=== PATIENT | female | born 1980 | race Caucasian/White ===

== ENCOUNTER 2017-08-12 15:10 | Inpatient (IN) | payer MEDICAID, OTHER ==
[2017-08-12] MEDS ORDERED: Sodium Chloride 0.9% 10 ML Syringe FLUSH PRN ×2 (16:41)
[2017-08-12] MEDS ORDERED: Ondansetron 4 MG/2 ML SDV IVPUSH ONE (16:42)
[2017-08-12] MEDS ORDERED: HYDROmorphone 0.5 MG/0.5 ML Syringe IVPUSH ONE (16:42)
[2017-08-12] MEDS ORDERED: Lactated Ringers 1,000 ML IV ONE (16:42)
--- NOTE | 2017-08-12 16:47 | EDM.PDOC ---
ED HPI GENERAL MEDICAL PROBLEM - General Chief Complaint: Abdominal Pain Stated Complaint: ABD PAIN Time Seen by Provider: 08/12/17 16:32 Source of Information: Reports: Patient, Family, RN Notes Reviewed History Limitations: Reports: No Limitations - History of Present Illness INITIAL COMMENTS - FREE TEXT/NARRATIVE: 36-year-old female presents to the emergency department today complaint of abdominal pain, she has a known history of gastric bypass several years ago has done well with the procedure however over the last couple months she has had increasing abdominal pain with eating over the last week or half it has gotten progressively worse pain is predominantly in the epigastric region Abdomen Pain Score (Numeric/FACES): 7 - Related Data Allergies Allergy/AdvReac Type Severity Reaction Status Date / Time Penicillins Allergy Hives Verified 08/12/17 15:57 acetaminophen AdvReac Cannot Verified 08/12/17 15:57 [From Darvocet-N] Remember propoxyphene AdvReac Cannot Verified 08/12/17 15:57 [From Darvocet-N] Remember Home Meds: Home Meds *Antideppresant 1 tab PO DAILY 08/12/17 [History] ALPRAZolam [Xanax] 1 tab PO BEDTIME 08/12/17 [History] Past Medical History HEENT History: Reports: Impaired Vision, Other (See Below) Other HEENT History: "10% hearing left ear" ORAL PATHOLOGIST History: Reports: Musculoskeletal History: Reports: Other (See Below) Other Musculoskeletal History: right knee "two cysts and meniscus tear". Neurological History: Reports: Other (See Below) Other Neuro History: patient reports "seizure" recently and did not go to the hospital or get follow up. Psychiatric History: Reports: Anxiety, Depression - Past Surgical History HEENT Surgical History: Reports: Myringotomy w Tube(s), Other (See Below) Other HEENT Surgeries/Procedures: skin grafting with ear drum repair GI Surgical History: Reports: Bariatric Procedure, Cholecystectomy, EGD, Hernia Repair/Other Female Surgical History: Reports: Hysterectomy, Tubal Ligation, Other (See Below) Other Female Surgeries/Procedures: "partial hysterectomy" Social & Family History - Tobacco Use Smoking Status *Q: Never Smoker - Recreational Drug Use Recreational Drug Use: No ED ROS GENERAL - Review of Systems Review Of Systems: See Below Constitutional: Denies: Fever, Chills HEENT: Reports: No Symptoms Respiratory: Reports: No Symptoms Cardiovascular: Reports: No Symptoms GI/Abdominal: Reports: Abdominal Pain, Nausea. Denies: Vomiting Musculoskeletal: Reports: No Symptoms Skin: Reports: No Symptoms Neurological: Reports: No Symptoms ED EXAM, GI/ABD - Physical Exam Exam: See Below Text/Narrative:: General: Female, not in any distress, alert and oriented x3 HEENT: head is atraumatic normocephalic, eyes pupils equal round reactive to light, sclera clear no conjunctivitis appreciated. Ears tympanic membranes clear and jeter landmarks and light reflex are present bilaterally canals are clear. Nose no septal deviation, nares are clear, no blood present. Mouth mucosa is moist and pink no erythema or exudate noted in soft palate, tongue is midline uvula is midline, dentition is intact. Neck: Supple no thyromegaly no tracheal deviation. Nodes: Cervical nodes subclavicular nodes nontender no palpable lymphadenopathy noted. Lungs: clear to auscultation bilaterally with symmetrical respirations, no adventitious noise appreciated. CV: Regular rate and rhythm S1 and S2 appreciated no murmurs rubs or gallops noted. Abdomen: Soft, nontender, no palpable masses or organomegaly appreciated, no distention no guarding bowel sounds are present, . Neuro: Cranial nerves II through XII grossly intact Skin: Warm and dry, intact Extremities: No lower extremity edema appreciated, . Course - Vital Signs Last Recorded V/S: Last Vital Signs Temp 98.1 F 08/12/17 15:52 Pulse 83 08/12/17 17:11 Resp 18 08/12/17 17:11 BP 131/86 08/12/17 17:11 Pulse Ox 97 08/12/17 17:11 - Orders/Labs/Meds Orders: Active Orders 24 hr Category Date Time Status Peripheral IV Care [RC] . DIRECTED Care 08/12/17 16:41 Active Sodium Chloride 0.9% [Saline Flush] Med 08/12/17 16:41 Active 10 ml FLUSH ASDIRECTED PRN Sodium Chloride 0.9% [Saline Flush] Med 08/12/17 16:41 Active 10 ml FLUSH ASDIRECTED PRN Peripheral IV Insertion Adult [OM.PC] Urgent Oth 08/12/17 16:41 Ordered Medication Orders Sodium Chloride (Saline Flush) 10 ml FLUSH ASDIRECTED PRN PRN Reason: Keep Vein Open Last Admin: 08/12/17 17:06 Dose: 10 ml Sodium Chloride (Saline Flush) 10 ml FLUSH ASDIRECTED PRN PRN Reason: Keep Vein Open Last Admin: 08/12/17 17:06 Dose: 10 ml Labs: Laboratory Tests 08/12/17 08/12/17 08/12/17 Range/Units 16:55 16:55 17:11 WBC 7.2 (4.5-11.0) K/uL RBC 4.12 (3.30-5.50) M/uL Hgb 12.6 (12.0-15.0) g/dL Hct 38.1 (36.0-48.0) % MCV 93 (80-98) fL MCH 31 (27-31) pg MCHC 33 (32-36) % Plt Count 354 (150-400) K/uL Neut % (Auto) 51 (36-66) % Lymph % (Auto) 41 (24-44) % [place] % (Auto) 6 (2-6) % Eos % (Auto) 1 L (2-4) % Baso % (Auto) 1 (0-1) % Sodium 145 (140-148) mmol/L Potassium 3.8 (3.6-5.2) mmol/L Chloride 108 (100-108) mmol/L Carbon Dioxide 24 (21-32) mmol/L Anion Gap 12.9 (5.0-14.0) mmol/L BUN 7 (7-18) mg/dL Creatinine 0.6 (0.6-1.0) mg/dL Est Cr Clr Drug Dosing 103.50 mL/min Estimated GFR (MDRD) > 60 (>60) Glucose 86 (74-106) mg/dL Calcium 8.4 L (8.5-10.1) mg/dL Total Bilirubin 0.2 (0.2-1.0) mg/dL AST 35 (15-37) U/L ALT 71 (12-78) U/L Alkaline Phosphatase 78 (46-116) U/L Total Protein 6.2 L (6.4-8.2) g/dL Albumin 3.6 (3.4-5.0) g/dL Globulin 2.6 (2.3-3.5) g/dL Albumin/Globulin Ratio 1.4 (1.2-2.2) Urine Color Yellow Urine Appearance Clear Urine pH 6.5 (4.5-8.0) Ur Specific [place] 1.010 (1.008-1.030) Urine Protein Negative (NEGATIVE) mg/dL Urine Glucose (UA) Normal (NEGATIVE) mg/dL Urine Ketones Negative (NEGATIVE) mg/dL Urine Occult Blood Negative (NEGATIVE) Urine Nitrite Negative (NEGATIVE) Urine Bilirubin Negative (NEGATIVE) Urine Urobilinogen Normal (NORMAL) mg/dL Ur Leukocyte Esterase Negative (NEGATIVE) Urine RBC 0-5 (0-5) Urine WBC 0-5 (0-5) Ur Epithelial Cells Rare Amorphous Sediment Not seen Urine Bacteria Rare Urine Mucus Not seen Meds: Medications Generic Name Dose Route Start Last Admin Trade Name Freq PRN Reason Stop Dose Admin Sodium Chloride 10 ml 08/12/17 16:41 08/12/17 17:06 Saline Flush FLUSH 10 ml ASDIRECTED PRN Administration Keep Vein Open Sodium Chloride 10 ml 08/12/17 16:41 08/12/17 17:06 Saline Flush FLUSH 10 ml ASDIRECTED PRN Administration Keep Vein Open Discontinued Medications Generic Name Dose Route Start Last Admin Trade Name Freq PRN Reason Stop Dose Admin Hydromorphone HCl 0.5 mg 08/12/17 16:42 08/12/17 17:09 Dilaudid IVPUSH 08/12/17 16:43 0.5 mg ONETIME ONE Administration Lactated Ringer's 1,000 mls @ 999 mls/hr 08/12/17 16:42 08/12/17 17:05 Ringers, Lactated IV 08/12/17 17:42 999 mls/hr BOLUS ONE Administration Ondansetron HCl 4 mg 08/12/17 16:42 08/12/17 17:08 Zofran IVPUSH 08/12/17 16:43 4 mg ONETIME ONE Administration Departure - Departure Time of Disposition: 17:50 Disposition: Admitted As Inpatient 67 Condition: Good Clinical Impression: Abdominal pain Qualifiers: Abdominal location: epigastric Qualified Code(s): R10.13 - Epigastric pain - Discharge Information Referrals: PCP,None [Primary Care Provider] - Forms: ED Department Discharge - My Orders Last 24 Hours: My Active Orders 08/12/17 16:41 Peripheral IV Care [RC] . DIRECTED Sodium Chloride 0.9% [Saline Flush] 10 ml FLUSH ASDIRECTED PRN Sodium Chloride 0.9% [Saline Flush] 10 ml FLUSH ASDIRECTED PRN Peripheral IV Insertion Adult [OM.PC] Urgent - Assessment/Plan Last 24 Hours: My Active Orders 08/12/17 16:41 Peripheral IV Care [RC] . DIRECTED Sodium Chloride 0.9% [Saline Flush] 10 ml FLUSH ASDIRECTED PRN Sodium Chloride 0.9% [Saline Flush] 10 ml FLUSH ASDIRECTED PRN Peripheral IV Insertion Adult [OM.PC] Urgent Plan: Assessment Acuity = acute on chronic Site and laterality = epigastric abdominal pain complicated patient with known history of Gilson-en-Y gastric bypass Etiology = unclear etiology Manifestations = pain, nausea Location of injury = Home Lab values = CBC, CMP unremarkable urinalysis unremarkable Plan Called and discussed the case with Dr. Sánchez general surgery recommended admission and possible EGD in the morning plan for hydration pain control and antiemetics This note was dictated using [employer] voice recognition software please call with any questions on syntax or sol.
[2017-08-12] MEDS ORDERED: Ondansetron 4 MG/2 ML SDV IV PRN (17:53)
[2017-08-12] MEDS ORDERED: HYDROmorphone 0.5 MG/0.5 ML Syringe IVPUSH PRN (17:56)
[2017-08-12] MEDS: Meperidine 300 MG/30 ML PCA Vial IV PRN (20:42)
[2017-08-12] MEDS: ALPRAZolam 0.5 MG Tab PO SCH (20:46)
[2017-08-12] MEDS: Lactated Ringers 1,000 ML IV SCH (22:00)
[2017-08-13] MEDS: Lactated Ringers 1,000 ML IV SCH ×2 (03:56→11:47)
[2017-08-13] MEDS: Meperidine 300 MG/30 ML PCA Vial IV PRN ×2 (04:25→12:54)
[2017-08-13] MEDS ORDERED: Acetaminophen/Caffeine 500-65 MG Tab PO ONE (06:43)
[2017-08-13] MEDS ORDERED: Naloxone 0.4 MG/ML SDV IV PRN (07:08)
--- NOTE | 2017-08-13 09:00 | HP ---
SUBJECTIVE: Amy was admitted to the emergency room yesterday for abdominal pain. She states she has had mid epigastric abdominal pain for about 10 days. It has progressively gotten worse. There is no radiation of pain. No associated signs and symptoms. She has a history of Gilson-en-Y gastric bypass surgery and was last seen in the Bariatric Surgery Department about in 2012. CURRENT MEDICATIONS: Xanax 1 tablet p.o. at bedtime 1 mg and antidepressant unknown. ALLERGIES: [facility] 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 Right knee, 2 cysts and meniscus tear, history of seizure but did not go to the hospital. Anxiety and depression. PAST SURGICAL HISTORY: Gilson-en-Y gastric bypass surgery, partial hysterectomy, tubal ligation, cholecystectomy, hernia, skin grafting of the right ear drum and myringotomy with tubes. SOCIAL HISTORY: . History of smoking cigarettes. 4 children; ages 14, 16, 17 and 20. Currently unemployed. Caffeine use, 4 bottles of diet Coke a day. Alcohol, last use 2 weeks ago. Protein unknown. Water intake unknown. Exercise none. REVIEW OF SYSTEMS: GENERAL: States weight has been stable. HEENT: Negative. NECK: Negative. HEART: No chest pain, shortness of breath, fast or irregular heart beat. RESPIRATORY: No cough. GI: Abdominal pain. No nausea or vomiting. States bowels work regularly. Pain is in the midepigastric area without radiation. She has been taking a lot of ibuprofen for knee pain. MUSCULOSKELETAL: Right knee pain. She has cyst and meniscal tear. SKIN: Negative for rash or changes in moles. NEUROLOGICAL: No headaches, dizziness, loss of coordination, but states she had a seizure at home. PSYCHIATRIC: Positive for depression and anxiety. Currently on medications. FAMILY HISTORY: Noncontributory. PHYSICAL EXAMINATION: GENERAL: Amy Meza is a 36-year-old female. VITAL SIGNS: Height is 5 feet 2 inches. Weight is 196, TPR 97.2, 72, 16, blood pressure 112/74. HEENT: Negative. NECK: Supple. HEART: Regular rate and rhythm. LUNGS: Clear. ABDOMEN: Soft. There is tenderness in the midepigastric area. EXTREMITIES: Without peripheral edema. NEUROLOGIC: Cranial nerves II-XII intact. PSYCHIATRIC: Mood and affect appropriate. SKIN: Without rash. ASSESSMENT: 1. Mid epigastric abdominal pain. 2. Excess of ibuprofen consumption following status post Gilson-en-Y gastric bypass surgery. 3. Unspecified surgical malabsorption. 4. Vitamin B deficiency. 5. Noncompliance with taking vitamins. 6. BMI 35. 7. History of nicotine use. 8. Right knee pain, torn meniscus per history. 9. Anxiety and depression. PLAN: 1. Schedule, have consent signed for EGD with possible dilatation and possible biopsies. Joseph Sánchez MD, case to follow today n.p.o. 2. Robinul 0.4 mg IV reservation agent to OR. 3. Check vitamin B12, ferritin, thiamin, vitamin D and folate. Blood already drawn today. 4. Excedrin Free 2 tabs were given per nursing staff at 0645 hours this morning for a caffeine headache. 5. Dietary consult. Bariatric consult. Lifestyle conflicts. We will evaluate p.r.n. and orders will be written post EGD. 6. Admit for observation, will be admitted to inpatient if pending results of EGD. Tomasa Cadena PA-C /[id number]
[2017-08-13] MEDS ORDERED: Midazolam 1 MG/ML 2 ML SDV ONE (11:07)
[2017-08-13] MEDS ORDERED: Propofol 200 MG/20 ML SDV ONE (11:07)
[2017-08-13] MEDS ORDERED: fentaNYL 100 MCG/2 ML SDV ONE (11:07)
[2017-08-13] MEDS ORDERED: Glycopyrrolate 0.2 MG/ML 2 ML SDV IVPUSH ONE (12:30)
[2017-08-13] MEDS ORDERED: Iohexol 300 MG/ML 30 ML Bottle PO ONE (13:01)
[2017-08-13] MEDS ORDERED: Sodium Chloride 0.9% 80 ML IV ONE (13:14)
[2017-08-13] MEDS ORDERED: Sodium Chloride 0.9% 10 ML Syringe FLUSH PRN (13:14)
[2017-08-13] MEDS ORDERED: Iopamidol 612 MG/ML 150 ML Bottle IV SCH (13:15)
[2017-08-13] MEDS ORDERED: Venlafaxine 75 MG Cap.ER PO SCH (14:00)
[2017-08-13] MEDS ORDERED: MANG IV SCH ×3 (16:00)
[2017-08-13] MEDS ORDERED: [UNRECOGNIZED DRUG - OTHER] IV SCH ×3 (16:00)
[2017-08-13] MEDS ORDERED: COPPER IV SCH ×3 (16:00)
[2017-08-13] MEDS ORDERED: CHROMIUM IV SCH ×3 (16:00)
[2017-08-13] MEDS ORDERED: VITAMIN K IV SCH ×3 (16:00)
[2017-08-13] MEDS ORDERED: MVI IV SCH ×3 (16:00)
[2017-08-13] MEDS ORDERED: ZINC IV SCH ×3 (16:00)
[2017-08-13] MEDS ORDERED: Cyanocobalamin (Vitamin B12) 1,000 MCG/ML SDV IM ONE (16:00)
[2017-08-13] MEDS: ALPRAZolam 0.5 MG Tab PO SCH (21:03)
[2017-08-14] MEDS: Lactated Ringers 1,000 ML IV SCH (00:14)
[2017-08-14] MEDS ORDERED: Meperidine 300 MG/30 ML PCA Vial IV ONE (04:49)
[2017-08-14] MEDS ORDERED: Acetaminophen/HYDROcodone 325-5 MG Tab PO PRN (08:52)
[2017-08-14] MEDS ORDERED: Ondansetron 4 MG Tab.DIS PO PRN (08:52)
--- NOTE | 2017-08-14 10:56 | DISCH ---
ADMISSION DIAGNOSES: 1. Abdominal pain, status post Gilson-en-Y gastric bypass surgery. 2. Unspecified surgical malabsorption. 3. B12 deficiency. 4. Noncompliance with taking vitamins. 5. BMI 35. 6. History of nicotine use. 7. Right knee pain, torn meniscus per history. DISCHARGE DIAGNOSES: 1. EGD, 08/13/2017. 2. Partial or mild small bowel obstruction per CT scan, 08/13/2017. 3. 2.3 cm cyst, left ovary. HOSPITAL COURSE: Amy presented to the emergency room on 08/12/2017 for abdominal pain. She was having midepigastric abdominal pain for about 10 days. It has progressively gotten worse. No radiation of pain. She has been taking quite a bit in the form of ibuprofen for knee pain. She had an EGD, which was negative. A CT scan was done and revealed a partial small bowel obstruction. REVIEW OF SYSTEMS: HEENT: Negative. NECK: Negative. HEART: Negative for chest pain. LUNGS: No shortness of breath. ABDOMEN: Improved somewhat, tolerating a step-3 gastric bypass diet and has eaten 100% of her meals. Oral intake was 1940. Remains to have minimal tenderness in the midepigastric and right below the midepigastric area and a little bit to the left. : Deferred. EXTREMITIES: Without peripheral edema. DISPOSITION: Discharged to home. CONDITION: Stable. DISCHARGE MEDICATIONS: New prescription; 1. [place] 5/325 mg 1 to 2 every 4 hours p.r.n. pain, #20. 2. Zofran 4 mg q.4 hours p.r.n. nausea, #30. 3. She is to resume her home medications of Effexor 75 mg daily and Xanax 1 mg p.o. at bedtime. 4. She was given instructions on her post-bariatric vitamins and supplements, but will not start these until after surgery. DIET: Usual diet as tolerated. Drink 8 to 10 glasses of water a day. ACTIVITY: As tolerated. Driving, do not drive while on pain medication. Shower/bathing, may shower. DISCHARGE INSTRUCTIONS: Notify provider if any fever, increased pain, nausea, or vomiting. Special instruction; follow up on Wednesday for surgery. The Surgery Department will call on Wednesday afternoon for time of surgery. Have nothing to eat after midnight before surgery.
--- NOTE | 2017-08-16 14:23 | OR ---
DATE OF PROCEDURE: 08/13/2017 PREOPERATIVE DIAGNOSIS: Upper mid abdominal pain, status post Gilson-en-Y gastric bypass. POSTOPERATIVE DIAGNOSIS: Normal endoscopic examination status post Gilson-en-Y gastric bypass. PROCEDURE: Upper GI endoscopy with biopsies of gastric pouch for CLOtest. ANESTHESIA: IV sedation. INDICATIONS FOR PROCEDURE: A 36-year-old status post Gilson-en-Y gastric bypass presenting with some upper and mid abdominal pain and diarrhea postprandial. To initiate workup, she is undergoing an upper endoscopy with biopsies as indicated. Potential risks including bleeding and perforation were discussed, and the patient wishes to proceed. DETAILS OF PROCEDURE: The patient was taken to the operating room and placed in a left lateral decubitus position. IV sedation was administered, after which the upper GI endoscope was passed orally through the length of the esophagus into the gastric pouch and from there through the gastrojejunostomy, roughly 20 cm into the Gilson limb. Findings included a normal esophagus and EG junction area. The gastric pouch likewise was unremarkable with no significant inflammation present. The gastrojejunostomy was widely patent, again without any inflammation or signs of ulceration and the visualized portion of the Gilson limb was unremarkable. At this point, biopsies were obtained from the gastric pouch to assess the H. pylori status. Minimal bleeding from the biopsy site was seen and the procedure then concluded. Given the lack of significant findings on the upper endoscopy, we will plan a CT scan of the abdomen to look for signs of partial small bowel obstruction later today. Joseph Sánchez MD /[id number]
== END 2017-08-14 09:44 | disposition home or self-care (01) | DRG 389 ==
LOC: JP.ED 15:10 → JP.2SS 17:53 → OBSVTOIN 08-13 12:20
PROVIDERS: ADMIT Surgery; ATTEND Surgery
PROC: 0DB68ZX Excision of Stomach, Via Natural or Artificial Opening Endoscopic, Diagnostic (ICD-10-PCS; principal; 2017-08-13)
DX: K56.600 Partial intestinal obstruction, unspecified as to cause (principal); K91.2 Postsurgical malabsorption, not elsewhere classified; E53.8 Deficiency of other specified B group vitamins; Z98.84 Bariatric surgery status; Z98.0 Intestinal bypass and anastomosis status; M25.561 Pain in right knee; N83.202 Unspecified ovarian cyst, left side; F32.9 Major depressive disorder, single episode, unspecified; F41.9 Anxiety disorder, unspecified; H54.7 Unspecified visual loss; Z87.891 Personal history of nicotine dependence; Z88.6 Allergy status to analgesic agent; Z88.0 Allergy status to penicillin; Z91.19 Patient's noncompliance with other medical treatment and regimen
CPT/HCPCS: 36415; 74177; 80053; 81001; 82306; 82607; 82728; 82746; 84425; 85025; 87081; 94762; 96361; 96374; 96375; 96376; 99284; 99285-25; A9270-GY; G0378; J1170; J2175; J2250; J2405; J2704; J3010; J3420; J3490; J7030; J7050; J7120; Q9965

== ENCOUNTER 2017-08-17 09:03 | Inpatient (IN) | payer MEDICAID ==
[~2017-08-17 09:03] MED LIST: Bupivacaine 0.5%/EPINEPHrine 1:200,000 50 ML MDV ONE; Dexamethasone 4 MG/ML SDV ONE; Glycopyrrolate 0.2 MG/ML 5 ML MDV ONE; Neostigmine Methylsulfate 1 MG/ML 5 ML Syringe ONE; Ondansetron 4 MG/2 ML SDV ONE; Propofol 200 MG/20 ML SDV ONE; Rocuronium 50 MG/5 ML Vial ONE; Succinylcholine 200 MG/10 ML MDV ONE
[2017-08-17] MEDS ORDERED: Meropenem 500 MG SDV ONE (09:59)
[2017-08-17] MEDS ORDERED: Gabapentin 300 MG Cap PO ONE (10:30)
[2017-08-17] MEDS ORDERED: Dextrose 5%-Lactated Ringers 1,000 ML IV SCH ×2 (10:30→14:30)
[2017-08-17] MEDS ORDERED: Celecoxib 200 MG Cap PO ONE (10:30)
[2017-08-17] MEDS ORDERED: Acetaminophen 500 MG Tab PO ONE (10:30)
[2017-08-17] MEDS ORDERED: Scopolamine 1.5 MG Transdermal Patch TOP SCH (10:30)
[2017-08-17] MEDS: cefOXitin 2 GM in Premix Bag 1 BAG IV ONE ×2 (11:30→14:19)
[2017-08-17] MEDS ORDERED: Lidocaine 2% 100 MG/5 ML Syringe IVPUSH ONE (11:45)
[2017-08-17] MEDS ORDERED: Ropivacaine 43 ML, Dexamethasone 8 MG, EPINEPHrine 0.4 MG, Sodium Chloride 0.9% 34.6 ML NERVRT SCH ×4 (11:45)
[2017-08-17] MEDS ORDERED: Ketamine 500 MG/5 ML MDV IV SCH (11:45)
[2017-08-17] MEDS ORDERED: Midazolam 1 MG/ML 2 ML SDV ONE (12:25)
[2017-08-17] MEDS ORDERED: fentaNYL 100 MCG/2 ML SDV ONE (13:19)
[2017-08-17] MEDS ORDERED: HYDROmorphone 1 MG/ML Syringe IVPUSH PRN (13:35)
[2017-08-17] MEDS: Lidocaine 0.4%/D5W 2 GM/500 ML BAG IV SCH (14:20)
[2017-08-17] MEDS ORDERED: Naloxone 0.4 MG/ML SDV IV PRN (14:25)
[2017-08-17] MEDS ORDERED: HYDROmorphone/Normal Saline 15 MG/30 ML PCA IV PRN (15:00)
[2017-08-17] MEDS ORDERED: Acetaminophen Soln 650 MG/20.3 ML UD Cup PO SCH (15:00)
[2017-08-17] MEDS ORDERED: Ondansetron 4 MG/2 ML SDV IVPUSH PRN (15:00)
[2017-08-17] MEDS ORDERED: Metoclopramide 10 MG/2 ML SDV IVPUSH PRN (15:00)
[2017-08-17] MEDS ORDERED: diphenhydrAMINE 50 MG/ML SDV IVPUSH PRN (15:00)
[2017-08-17] MEDS ORDERED: hydrOXYzine HCl 100 MG/2 ML SDV IM PRN (15:00)
[2017-08-17] MEDS ORDERED: Labetalol 20 MG/4 ML Syringe IVPUSH PRN (15:00)
[2017-08-17] MEDS: SCOPOLAMINE PATCH CHECK TOP SCH (15:18)
[2017-08-17] MEDS: Acetaminophen Soln 650 MG/20.3 ML UD Cup PO SCH ×2 (15:40→22:04)
[2017-08-17] MEDS ORDERED: Pantoprazole 40 MG Vial IVPUSH SCH (16:00)
[2017-08-17] MEDS ORDERED: MVI, Adult with Vitamin K 10 ML, Thiamine 200 MG, Chromium/Copper/Mang/Selen/Zn 1 ML in... IV SCH ×4 (16:00)
[2017-08-17] MEDS: Venlafaxine 75 MG Cap.ER PO SCH (17:30)
[2017-08-17] MEDS: cefOXitin 2 GM in Sodium Chloride 0.9% 50 ML IV SCH ×2 (17:31→23:55)
[2017-08-17] MEDS: Heparin Sodium 5,000 Units/ML Vial SUBCUT SCH (17:32)
[2017-08-17] MEDS: Gabapentin 250 MG/5 ML Solution ML 470 ML Bottle PO SCH (20:34)
[2017-08-17] MEDS ORDERED: ALPRAZolam 0.5 MG Tab PO SCH (21:00)
[2017-08-17] MEDS ORDERED: Iohexol 647 MG/ML 50 ML SDV PO SCH (23:30)
[2017-08-18] MEDS: Acetaminophen Soln 650 MG/20.3 ML UD Cup PO SCH (04:08)
[2017-08-18] MEDS: Heparin Sodium 5,000 Units/ML Vial SUBCUT SCH (05:12)
[2017-08-18] MEDS: Lidocaine 0.4%/D5W 2 GM/500 ML BAG IV SCH (05:15)
[2017-08-18] MEDS: cefOXitin 2 GM in Sodium Chloride 0.9% 50 ML IV SCH (05:22)
[2017-08-18] MEDS ORDERED: Celecoxib 200 MG Cap PO SCH (08:00)
[2017-08-18] MEDS ORDERED: Acetaminophen/oxyCODONE 325-5 MG Tab PO PRN ×2 (08:10→08:24)
[2017-08-18] MEDS: Venlafaxine 75 MG Cap.ER PO SCH (08:36)
[2017-08-18] MEDS: Gabapentin 250 MG/5 ML Solution ML 470 ML Bottle PO SCH (08:36)
[2017-08-18] MEDS: SCOPOLAMINE PATCH CHECK TOP SCH (08:36)
--- NOTE | 2017-08-18 08:52 | CR ---
UGI wo KUB HISTORY: Prior gastric bypass Gilson-en-Y. COMPARISON: CT scan 08/13/2017 FINDINGS: Contrast is seen within the small gastric remnant. No extravasation. Contrast is also seen in the Gilson limb without extravasation or obstruction.
--- NOTE | 2017-08-19 08:14 | DISCH ---
ADMISSION DIAGNOSES: Partial small bowel obstruction, status post Gilson-en-Y gastric bypass surgery; unspecified surgical malabsorption; B12 deficiency; and depression. DISCHARGE DIAGNOSES: Diagnostic laparoscopy with revision of the jejunostomy junction, resection of the biliary pancreatic stump and placement of Interceed mesh, for partial small bowel obstruction at the jejunostomy junction, redundant biliary limb causing distortion at the jejunostomy junction. Date of surgery, 08/17/2017. HISTORY: Amy Meza is a 36-year-old female with postprandial abdominal pain. After preoperative evaluation and discussion of possible risks and possible complications, she wished to proceed with surgical procedure. HOSPITAL COURSE: Amy had her surgery on 08/17/2017. She had no operative complications. On postop day #1, her activity was good. Pain was well managed. She tolerated her diet well, and she was ready to be discharged to home. PHYSICAL EXAMINATION: GENERAL: Amy Meza is a 36-year-old female. VITAL SIGNS: Height is 5 feet 2 inches, weight is 190 pounds. TPR is 99.5, 82, 16. Blood pressure 125/66. HEENT: Negative. NECK: Supple. HEART: Regular rate and rhythm. LUNGS: Clear. ABDOMEN: Sutures in place. Abdominal binder is on. EXTREMITIES: Without peripheral edema. DISPOSITION: Discharged to home. CONDITION: Stable and improving. FOLLOWUP APPOINTMENT: With Tomasa Cadena PA-C, on 08/27/2017 at 10:30 a.m. HOME MEDICATIONS: Percocet 5/325 mg 1 to 2 every 4 hours p.r.n. pain, #40 and Celebrex 200 mg p.o. daily, #14. She is to resume her home medications; Xanax 1 mg at bedtime, calcium 600 mg with vitamin D 1 tablet twice daily, vitamin D3 5000 international units daily, vitamin B12 1000 mcg sublingual daily, ferrous fumarate 1 oral twice daily, multivitamin 1 chewable daily, triamcinolone cream 0.1% cream 18 g twice daily, venlafaxine 75 mg oral daily, and vitamin B complex 1 daily. DIET AFTER DISCHARGE: Step-2 gastric bypass diet. Drink 8 to 10 glasses a day. ACTIVITY: No lifting greater than 10 pounds for 2 weeks[address] Driving, do not drive on pain medication. May shower. DISCHARGE INSTRUCTIONS: Notify provider if fever, increased pain, nausea or vomiting. Keep site clean and dry. Wear abdominal binder for 2 weeks and as tolerated. Special instruction, use incentive spirometer 10 times every hour while awake.
[2017-08-19] MEDS ORDERED: Cyanocobalamin (Vitamin B12) 1,000 MCG/ML SDV IM ONE (09:00)
--- NOTE | 2017-08-23 08:28 | OR ---
DATE OF PROCEDURE: 08/17/2017 PREOPERATIVE DIAGNOSIS: Partial small bowel obstruction. POSTOPERATIVE DIAGNOSES: 1. Partial small bowel obstruction secondary to acute angulation of the Gilson limb entering the jejunojejunostomy. 2. 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 OPERATIVE PROCEDURE: Diagnostic laparoscopy with lysis of adhesions and: 1. Revision of jejunojejunostomy component of Gilson-en-Y gastric bypass (31385). 2. Separate resection of the biliopancreatic limb stump (90963). 3. Placement of Interceed mesh to limit recurrent adhesion formation (65746). ANESTHESIA: General. ASSISTANTS: 1. Tomasa Cadena PA-C. 2. KAREN Trujillo3. INDICATIONS FOR PROCEDURE: This is a 36-year-old admitted last week with postprandial crampy abdominal pain. The upper GI endoscopic examination was unremarkable. The patient underwent a CT scan of the abdomen, which showed a partial obstruction at the level of the jejunojejunostomy. Plan is to proceed with a diagnostic laparoscopy with resection and revision of the jejunojejunostomy, as well as other procedures as indicated, based on operative findings. The patient is still somewhat obese, and as discussed with the patient, if we need to revise the jejunojejunostomy, it could be done such that the length of the limbs would be such that she would likely lose some weight, knowing that there is some risk of frequent loose bowel movements with this procedure, as well as possible nutritional deficiencies, all requiring the medical management and/or occasionally revision once again. Potential risks otherwise, including bleeding, infection, injury to underlying viscera, leaks from GI tract closures as well as possibility of cardiopulmonary, septic, or hemorrhagic complications leading to were discussed, and the patient wishes to proceed. DETAILS OF PROCEDURE: The patient was taken to the operating room and placed in a supine position. After general endotracheal anesthesia was induced, she was converted to a lithotomy position and the abdomen was prepped and draped. In the left lower quadrant, a transverse incision was made and the peritoneal cavity entered under direct vision with an Optiview trocar with the peritoneal cavity inflated to 15 mmHg pressure with CO2. Laparoscope was then reinserted. No underlying trocar insertion site injuries were seen. Following this, eventually 4 additional trocars were placed in the upper and mid abdomen. As one traced down the jejunojejunostomy, the point of obstruction at the end of the Gilson limb as it entered the jejunojejunostomy was identified. After lysis of adhesions, this still appeared to be somewhat narrowed and angulated. The jejunojejunostomy was also being distorted by the biliopancreatic limb stump being fairly redundant and its mesentericthen pulling the anastomosis leftward and posteriorly. Initially, the redundant biliopancreatic limb stump was then resected with a TAISHA kruse load, the adjacent mesentery divided with Harmonic scalpel, and that specimen delivered from the field. At this point, the Gilson limb was divided more or less flush with the jejunojejunostomy and a small amount of this was resected, after freeing up of the mesentery resulted in a few centimeters that were ischemic. Both divisions of the small bowel were accomplished with TAISHA kruse loads. The Gilson limb at that point was measured at 135 cm. At this point, the ileocecal valve was identified and traced back 220 cm, giving the patient a common limb of 220 cm with the Gilson limb of 135 cm. Recently, we have been using a combined alimentary limb length of 300 cm on these revisions, but the patient has had some difficulty in maintaining followup, and given this, somewhat longer limb lengths were used to minimize chances of problems with diarrhea and nutritional deficiencies. At that point, the divided end of the Gilson limb was brought up to the small bowel at the point 220 cm proximal to the ileocecal valve, and after some initial lining sutures were placed with 0 Ethibond stitch, small bowel anastomosis was accomplished in a [id number] manner with internal firing of the Endo-TAISHA kruse load. The common opening was then closed transversely with the purple load, angles anastomosed, and the mesenteric defect was then reinforced with 0 Ethibond sutures, along with a fibrin sealant. At that point, the abdomen was irrigated with meropenem-containing saline solution. So as to minimize chances of adhesions between the small bowel and the pelvic and abdominal wall, Interceed mesh was placed over the area of dissection, and following this, the trocars were sequentially removed. The fascia at the 12 mm sites were closed with 0 Vicryl stitch and the skin with a 4-0 Vicryl skin stitch. Dressing was applied. The patient was taken to the recovery room in satisfactory condition. Physician hospital aides and assistants teacher, Tomasa Cadena, played an essential role in assisting in this case, helping to position the patient, retract structures as needed, as well as suturing and cutting sutures when indicated. Her presence improved patient's safety and decreased operative time. Joseph Sánchez MD /[id number]
== END 2017-08-18 09:25 | disposition home or self-care (01) | DRG 389 ==
LOC: JP.SDS 09:03 → JP.SDSSCHI 09:03 → JP.2SS 13:00 → EDSTATUS 14:10
PROVIDERS: ADMIT Surgery; ATTEND Surgery
PROC: 0DBA4ZX Excision of Jejunum, Percutaneous Endoscopic Approach, Diagnostic (ICD-10-PCS; principal; 2017-08-17)
PROC: 0DB94ZX Excision of Duodenum, Percutaneous Endoscopic Approach, Diagnostic (ICD-10-PCS; 2017-08-17)
PROC: 3E0M05Z Introduction of Adhesion Barrier into Peritoneal Cavity, Open Approach (ICD-10-PCS; 2017-08-17)
DX: K56.600 Partial intestinal obstruction, unspecified as to cause (principal); K91.2 Postsurgical malabsorption, not elsewhere classified; E53.8 Deficiency of other specified B group vitamins; F32.9 Major depressive disorder, single episode, unspecified; F41.9 Anxiety disorder, unspecified; H54.7 Unspecified visual loss; Z87.891 Personal history of nicotine dependence; Z88.5 Allergy status to narcotic agent; Z88.0 Allergy status to penicillin; Z88.8 Allergy status to other drugs, medicaments and biological substances; T45.2X6A Underdosing of vitamins, initial encounter; Y92.9 Unspecified place or not applicable; Z98.84 Bariatric surgery status; Z98.0 Intestinal bypass and anastomosis status
CPT/HCPCS: 51701; 74240; 74240-26; 82962; 88307; 94762; A9270-GY; C9113; J0171; J0330; J0694; J1100; J1170; J1644; J2001; J2185; J2250; J2405; J2704; J2710; J2795; J3010; J3410; J3411; J7030; J7042; J7050; Q9967

== ENCOUNTER 2017-12-17 21:24 | Emergency (ER) | payer SELFPAY ==
[2017-12-17] MEDS ORDERED: Metoclopramide 10 MG/2 ML SDV IVPUSH ONE (22:23)
[2017-12-17] MEDS ORDERED: Lactated Ringers 1,000 ML IV ONE (22:23)
[2017-12-17] MEDS ORDERED: fentaNYL 100 MCG/2 ML SDV IVPUSH ONE (22:24)
--- NOTE | 2017-12-17 22:30 | EDM.PDOC ---
ED HPI GENERAL MEDICAL PROBLEM - General Chief Complaint: Abdominal Pain Stated Complaint: ABD PAIN Time Seen by Provider: 12/17/17 22:15 Source of Information: Reports: Patient, Old Records History Limitations: Reports: No Limitations - History of Present Illness INITIAL COMMENTS - FREE TEXT/NARRATIVE: 37 yo female patient of Dr. Sánchez comes here tonight from [place], [place] for several weeks of diarrhea and intermittent vomiting and upper abdominal pain. 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 No fever. No bleeding. Missed her outpatient appt earlier with Dr. Sánchez. 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 ) Associated Symptoms: Reports: Nausea/Vomiting. 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) (none) abdominal pain Pain Score (Numeric/FACES): 8 - Related Data Allergies Allergy/AdvReac Type Severity Reaction Status Date / Time Penicillins Allergy Hives Verified 12/17/17 22:03 propoxyphene AdvReac Cannot Verified 12/17/17 22:03 [From Luis] Remember Home Meds: Home Meds ALPRAZolam [Xanax] 1 mg PO BEDTIME 08/12/17 [History] Venlafaxine HCl [Venlafaxine ER] 75 mg PO DAILY 08/13/17 [History] Calcium Carbonate/Vitamin D3 [Calcium 600 + Vit D 200] 1 each PO BID 08/16/17 [ History] Cholecalciferol (Vitamin D3) [Vitamin D3] 5,000 unit PO DAILY 08/16/17 [History] Cyanocobalamin (Vitamin B-12) [Vitamin B-12] 1,000 mcg SL DAILY 08/16/17 [ History] Ferrous Fumarate/Ascorbic Acid [Marilin-Sequels 65-25 mg Caplet] 1 each PO BID 03/26 [History] Ped Multivit #38/Iron Fumarate [Hm Animal Shapes Complete Chew] 18 mg PO BID 03/26 [History] Vitamin B Complex [B Complex] 1 each PO DAILY 08/16/17 [History] Celecoxib [CeleBREX] 200 mg PO DAILY@0800 #14 cap 08/18/17 [Rx] Past Medical History HEENT History: Reports: Impaired Vision, Other (See Below) Other HEENT History: "10% hearing left ear" Gastrointestinal History: Reports: Bowel Obstruction, Cholelithiasis Genitourinary History: Reports: None 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 Neurological History: Reports: Other (See Below) Other Neuro History: patient reports "seizure" recently and did not go to the hospital or get follow up. Psychiatric History: Reports: Anxiety, Depression Endocrine/Metabolic History: Reports: Obesity/BMI 30+ Hematologic History: Reports: B12 Deficiency, Blood Transfusion(s) - Infectious Disease History Infectious Disease History: Reports: Chicken Pox - Past Surgical History HEENT Surgical History: Reports: Myringotomy w Tube(s), Other (See Below) Other HEENT Surgeries/Procedures: skin grafting with ear drum repair GI Surgical History: Reports: Bariatric Procedure, Cholecystectomy, Colon, EGD, Hernia Repair/Other, Small Bowel Female Surgical History: Reports: Hysterectomy, Tubal Ligation, Other (See Below) Other Female Surgeries/Procedures: "partial hysterectomy" Musculoskeletal Surgical History: Reports: None Social & Family History - Family History Family Medical History: Noncontributory - Tobacco Use Smoking Status *Q: Current Some Day Smoker Years of Tobacco use: 20 Packs/Tins Daily: 0.2 Second Hand Smoke Exposure: Yes - Caffeine Use Caffeine Use: Reports: Soda - Recreational Drug Use Recreational Drug Use: No ED ROS GENERAL - Review of Systems Review Of Systems: See Below Constitutional: Reports: No Symptoms HEENT: Reports: No Symptoms Respiratory: Reports: No Symptoms Cardiovascular: Reports: No Symptoms Endocrine: Reports: No Symptoms GI/Abdominal: Reports: Abdominal Pain, Diarrhea, Nausea, Vomiting. Denies: Black Stool, Bloody Stool, Constipation, Distension, Flatus, Hematemesis, Hematochezia, Melena : Reports: No Symptoms Musculoskeletal: Reports: No Symptoms Skin: Reports: No Symptoms Neurological: Reports: No Symptoms Psychiatric: Reports: No Symptoms ED EXAM, GI/ABD - Physical Exam Exam: See Below Exam Limited By: No Limitations General Appearance: Alert, WD/WN, No Apparent Distress Eyes: Bilateral: Normal Appearance Ears: Normal External Exam, Normal Canal, Hearing Grossly Normal Nose: Normal Inspection, Normal Mucosa, No Blood Throat/Mouth: Normal Inspection, Normal Lips, Normal Oropharynx, Normal Voice, No Airway Compromise Head: Atraumatic, Normocephalic Neck: Normal Inspection, Supple, Non-Tender Respiratory/Chest: No Respiratory Distress, Lungs Clear, Normal Breath Sounds, No Accessory Muscle Use Cardiovascular: Regular Rate, Rhythm, No Edema GI/Abdominal Exam: Normal Bowel Sounds, Soft, No Distention, Tender (upper half of her abdomen.), Abnormal Bowel Sounds (increased). No: Non-Tender Back Exam: Normal Inspection. No: CVA Tenderness (R), CVA Tenderness (L) Extremities: Normal Inspection, Normal Range of Motion, Non-Tender, No Pedal Edema Neurological: Alert, Oriented, CN II-XII Intact, Normal Cognition, No Motor/ Sensory Deficits Psychiatric: Normal Affect, Normal Mood Skin Exam: Warm, Dry, Intact, Normal Color, No Rash Course - Vital Signs Text/Narrative:: Discussed with Dr. Sánchez at 0100h Last Recorded V/S: Last Vital Signs Temp 37.6 C 12/17/17 22:12 Pulse 81 12/17/17 22:12 Resp 16 12/17/17 22:12 BP 124/88 12/17/17 22:12 Pulse Ox 97 12/17/17 22:12 - Orders/Labs/Meds Orders: Active Orders 24 hr Category Date Time Status Abdomen Pelvis w Cont [CT] Stat Exams 12/17/17 22:24 Taken UA W/MICROSCOPIC [URIN] Stat Lab 12/17/17 22:23 Ordered Iopamidol [Isovue-300 (61%)] Med 12/17/17 22:45 Active 100 ml IV . DIRECTED Sodium Chloride 0.9% [Normal Saline] 80 ml Med 12/17/17 22:45 Active IV ASDIRECTED Sodium Chloride 0.9% [Saline Flush] Med 12/17/17 22:40 Active 10 ml FLUSH ASDIRECTED PRN Medication Orders Sodium Chloride (Normal Saline) 80 mls @ 3 mls/sec IV ASDIRECTED TOMAS Last Admin: 12/17/17 23:01 Dose: 3 mls/sec Iopamidol (Isovue-300 (61%)) 100 ml IV . DIRECTED TOMAS Last Admin: 12/17/17 23:01 Dose: 100 ml Sodium Chloride (Saline Flush) 10 ml FLUSH ASDIRECTED PRN PRN Reason: Keep Vein Open Last Admin: 12/17/17 23:00 Dose: 10 ml Labs: Laboratory Tests 12/17/17 12/17/17 Range/Units 22:33 22:33 WBC 8.5 (4.5-11.0) K/uL RBC 3.65 (3.30-5.50) M/uL Hgb 11.5 L (12.0-15.0) g/dL Hct 35.4 L (36.0-48.0) % MCV 97 (80-98) fL MCH 32 H (27-31) pg MCHC 33 (32-36) % Plt Count 321 (150-400) K/uL Sodium 138 L (140-148) mmol/L Potassium 3.5 L (3.6-5.2) mmol/L Chloride 105 (100-108) mmol/L Carbon Dioxide 25 (21-32) mmol/L Anion Gap 11.5 (5.0-14.0) mmol/L BUN 10 D (7-18) mg/dL Creatinine 0.7 (0.6-1.0) mg/dL Est Cr Clr Drug Dosing 87.87 mL/min Estimated GFR (MDRD) > 60 (>60) Glucose 82 (74-106) mg/dL Calcium 7.9 L (8.5-10.1) mg/dL Total Bilirubin 0.3 (0.2-1.0) mg/dL AST 17 (15-37) U/L ALT 27 (12-78) U/L Alkaline Phosphatase 75 (46-116) U/L Total Protein 5.7 L (6.4-8.2) g/dL Albumin 2.9 L (3.4-5.0) g/dL Globulin 2.8 (2.3-3.5) g/dL Albumin/Globulin Ratio 1.0 L (1.2-2.2) Lipase 170 (73-393) U/L Meds: Medications Generic Name Dose Route Start Last Admin Trade Name Freq PRN Reason Stop Dose Admin Sodium Chloride 80 mls @ 3 mls/sec 12/17/17 22:45 12/17/17 23:01 Normal Saline IV 3 mls/sec ASDIRECTED TOMAS Administration Iopamidol 100 ml 12/17/17 22:45 12/17/17 23:01 Isovue-300 (61%) IV 100 ml . DIRECTED TOMAS Administration Sodium Chloride 10 ml 12/17/17 22:40 12/17/17 23:00 Saline Flush FLUSH 10 ml ASDIRECTED PRN Administration Keep Vein Open Discontinued Medications Generic Name Dose Route Start Last Admin Trade Name Jeremiah PRN Reason Stop Dose Admin Fentanyl 100 mcg 12/17/17 22:24 12/17/17 22:51 Sublimaze IVPUSH 12/17/17 22:25 100 mcg ONETIME ONE Administration Fentanyl 100 mcg 12/18/17 00:24 Sublimaze IVPUSH 12/18/17 00:25 ONETIME ONE Lactated Ringer's 1,000 mls @ 1,000 mls/hr 12/17/17 22:23 12/17/17 22:46 Ringers, Lactated IV 12/17/17 23:22 1,000 mls/hr BOLUS ONE Administration Metoclopramide HCl 10 mg 12/17/17 22:23 12/17/17 22:49 Reglan IVPUSH 12/17/17 22:24 10 mg ONETIME ONE Administration - Radiology Interpretation Free Text/Narrative:: CT abd/pelvis-neg CT Results Date: 12/17/17 CT Results Time: 01:01 Departure - Departure Time of Disposition: 01:03 Disposition: Home, Self-Care 01 Condition: Fair Clinical Impression: Diarrhea Qualifiers: Diarrhea type: unspecified type Qualified Code(s): R19.7 - Diarrhea, unspecified Nausea & vomiting Qualifiers: Vomiting type: unspecified Vomiting Intractability: non-intractable Qualified Code(s): R11.2 - Nausea with vomiting, unspecified - Discharge Information Referrals: Moises Brooks MD [Primary Care Provider] - Forms: ED Department Discharge - My Orders Last 24 Hours: My Active Orders 12/17/17 22:23 UA W/MICROSCOPIC [URIN] Stat 12/17/17 22:24 Abdomen Pelvis w Cont [CT] Stat 12/17/17 22:40 Sodium Chloride 0.9% [Saline Flush] 10 ml FLUSH ASDIRECTED PRN 12/17/17 22:45 Iopamidol [Isovue-300 (61%)] 100 ml IV . DIRECTED Sodium Chloride 0.9% [Normal Saline] 80 ml IV ASDIRECTED - Assessment/Plan Last 24 Hours: My Active Orders 12/17/17 22:23 UA W/MICROSCOPIC [URIN] Stat 12/17/17 22:24 Abdomen Pelvis w Cont [CT] Stat 12/17/17 22:40 Sodium Chloride 0.9% [Saline Flush] 10 ml FLUSH ASDIRECTED PRN 12/17/17 22:45 Iopamidol [Isovue-300 (61%)] 100 ml IV . DIRECTED Sodium Chloride 0.9% [Normal Saline] 80 ml IV ASDIRECTED
[2017-12-17] MEDS ORDERED: Iopamidol 612 MG/ML 100 ML Bottle IV SCH (22:45)
[2017-12-17] MEDS ORDERED: Sodium Chloride 0.9% 80 ML IV SCH (22:45)
[2017-12-17] MEDS: Sodium Chloride 0.9% 10 ML Syringe FLUSH PRN (23:00)
[2017-12-18] MEDS ORDERED: fentaNYL 100 MCG/2 ML SDV IVPUSH ONE (00:24)
[2017-12-18] MEDS ORDERED: Dicyclomine 10 MG Cap PO ONE (01:04)
[2017-12-18] MEDS: Sodium Chloride 0.9% 10 ML Syringe FLUSH PRN (01:07)
== END 2017-12-18 01:33 | disposition home or self-care (01) ==
LOC: JP.ED 21:24
DX: R19.7 Diarrhea, unspecified (principal); R11.2 Nausea with vomiting, unspecified; F17.210 Nicotine dependence, cigarettes, uncomplicated; F41.9 Anxiety disorder, unspecified; F32.9 Major depressive disorder, single episode, unspecified; Z79.899 Other long term (current) drug therapy; Z88.8 Allergy status to other drugs, medicaments and biological substances; Z88.0 Allergy status to penicillin
CPT/HCPCS: 36415; 74177; 80053; 83690; 85027; 96361; 96374; 96375; 96376; 99284; A9270; J2765; J3010; J7030; J7050; J7120; Q9967

== ENCOUNTER 2017-12-20 14:30 | Inpatient (IN) | payer OTHER ==
[2017-12-20] MEDS ORDERED: Acetaminophen 325 MG Tab PO PRN (15:36)
[2017-12-20] MEDS ORDERED: Acetaminophen 650 MG Supp RECTAL PRN (15:37)
[2017-12-20] MEDS: HYDROmorphone/Normal Saline 15 MG/30 ML PCA IV PRN (15:55)
[2017-12-20] MEDS: Pantoprazole 40 MG Vial IV SCH (16:56)
[2017-12-20] MEDS: Ondansetron 4 MG/2 ML SDV IVPUSH PRN (17:23)
[2017-12-20] MEDS ORDERED: ALPRAZolam 0.5 MG Tab PO SCH (21:00)
[2017-12-20] MEDS: Dextrose 5%-Lactated Ringers 1,000 ML IV SCH (22:45)
[2017-12-21] MEDS: Nicotine 14 MG/24 Hr Patch TRDERM SCH ×2 (01:10→10:30)
[2017-12-21] MEDS: Dextrose 5%-Lactated Ringers 1,000 ML IV SCH ×2 (06:01→12:40)
[2017-12-21] MEDS: HYDROmorphone/Normal Saline 15 MG/30 ML PCA IV PRN (06:37)
[2017-12-21] MEDS: LORazepam 2 MG/ML SDV IV PRN ×2 (07:42→12:05)
[2017-12-21] MEDS ORDERED: cefOXitin 2 GM in Sodium Chloride 0.9% 50 ML IV ONE (10:00)
[2017-12-21] MEDS ORDERED: Lidocaine 2% 100 MG/5 ML Syringe IVPUSH ONE (11:00)
[2017-12-21] MEDS ORDERED: Lidocaine 0.4%/D5W 2 GM/500 ML BAG IV SCH (11:00)
[2017-12-21] MEDS ORDERED: Ketamine 500 MG/5 ML MDV IV SCH (11:00)
[2017-12-21] MEDS ORDERED: Ropivacaine 36 ML, Dexamethasone 8 MG, EPINEPHrine 0.4 MG, Sodium Chloride 0.9% 41.6 ML NERVRT SCH ×4 (11:00)
[2017-12-21] MEDS ORDERED: fentaNYL 250 MCG/5 ML SDV ONE ×3 (11:26→14:56)
[2017-12-21] MEDS ORDERED: Rocuronium 50 MG/5 ML Vial ONE ×2 (11:27→15:00)
[2017-12-21] MEDS ORDERED: Glycopyrrolate 0.2 MG/ML 5 ML MDV ONE (11:27)
[2017-12-21] MEDS ORDERED: Ondansetron 4 MG/2 ML SDV ONE (11:27)
[2017-12-21] MEDS ORDERED: Propofol 200 MG/20 ML SDV ONE (11:27)
[2017-12-21] MEDS ORDERED: Neostigmine Methylsulfate 1 MG/ML 5 ML Syringe ONE (11:27)
[2017-12-21] MEDS ORDERED: Dexamethasone 4 MG/ML SDV ONE (11:27)
[2017-12-21] MEDS ORDERED: Meropenem 500 MG SDV ONE (12:46)
[2017-12-21] MEDS ORDERED: Lactated Ringers 1,000 ML ONE (15:15)
[2017-12-21] MEDS ORDERED: hydrOXYzine HCl 100 MG/2 ML SDV IM ONE (15:56)
[2017-12-21] MEDS ORDERED: Ondansetron 4 MG/2 ML SDV IVPUSH ONE (16:18)
[2017-12-21] MEDS ORDERED: diphenhydrAMINE 50 MG/ML SDV ONE (16:45)
[2017-12-21] MEDS: Pantoprazole 40 MG Vial IV SCH (17:14)
[2017-12-21] MEDS ORDERED: Dextrose 5%-Lactated Ringers 1,000 ML IV SCH (17:15)
[2017-12-21] MEDS: Naloxone 0.4 MG/ML SDV IV PRN ×2 (17:23→17:44)
[2017-12-21] MEDS: Acetaminophen Soln 650 MG/20.3 ML UD Cup PO SCH ×2 (17:50→23:24)
[2017-12-21] MEDS ORDERED: hydrOXYzine HCl 100 MG/2 ML SDV IM PRN (18:00)
[2017-12-21] MEDS ORDERED: Labetalol 20 MG/4 ML Syringe IVPUSH PRN (18:00)
[2017-12-21] MEDS ORDERED: Metoclopramide 10 MG/2 ML SDV IVPUSH PRN (18:00)
[2017-12-21] MEDS ORDERED: diphenhydrAMINE 50 MG/ML SDV IVPUSH PRN (18:00)
[2017-12-21] MEDS: Ondansetron 4 MG/2 ML SDV IVPUSH PRN ×2 (18:25→22:41)
[2017-12-21] MEDS ORDERED: methylPREDNISolone Sod Succ 80 MG in Dextrose 5% in Water 100 ML IV ONE ×2 (18:28)
[2017-12-21] MEDS ORDERED: methylPREDNISolone Sodium Succinate 40 MG/1 ML SDV IVPUSH ONE (18:34)
[2017-12-21] MEDS: MVI, Adult with Vitamin K 10 ML, Thiamine 100 MG, Chromium/Copper/Mang/Selen/Zn 1 ML in... IV SCH ×4 (20:06)
[2017-12-21] MEDS: Melatonin 3 MG Tab PO SCH (21:25)
[2017-12-21] MEDS: Gabapentin 250 MG/5 ML Solution ML 470 ML Bottle PO SCH (21:25)
[2017-12-21] MEDS: Heparin Sodium 5,000 Units/ML Vial SUBCUT SCH (21:26)
[2017-12-21] MEDS: cefOXitin 2 GM in Sodium Chloride 0.9% 50 ML IV SCH (21:27)
[2017-12-22] MEDS: cefOXitin 2 GM in Sodium Chloride 0.9% 50 ML IV SCH ×3 (02:25→13:52)
[2017-12-22] MEDS ORDERED: Iohexol 647 MG/ML 50 ML SDV PO STA (03:58)
[2017-12-22] MEDS: Acetaminophen Soln 650 MG/20.3 ML UD Cup PO SCH ×3 (06:39→17:17)
[2017-12-22] MEDS: HYDROmorphone/Normal Saline 15 MG/30 ML PCA IV PRN ×2 (07:07→18:19)
[2017-12-22] MEDS ORDERED: Ondansetron 4 MG Tab.DIS PO PRN (07:56)
[2017-12-22] MEDS: Celecoxib 200 MG Cap PO SCH (08:00)
[2017-12-22] MEDS: Dextrose 5%-Lactated Ringers 1,000 ML IV SCH (08:07)
--- NOTE | 2017-12-22 09:12 | CR ---
Limited upper GI The patient is status post Gilson-en-Y gastric bypass. There are left upper quadrant drains in place. T here is no extravasation of contrast. The gastric pouch empties readily into a nondilated Gilson limb. No complications are evident. Impression: 1. Status post Gilson-en-Y gastric bypass without evidence for complication.
[2017-12-22] MEDS: Nicotine 14 MG/24 Hr Patch TRDERM SCH (09:14)
[2017-12-22] MEDS: Heparin Sodium 5,000 Units/ML Vial SUBCUT SCH ×2 (09:15→21:06)
[2017-12-22] MEDS: Venlafaxine 75 MG Cap.ER PO SCH (09:15)
[2017-12-22] MEDS: SCOPOLAMINE PATCH CHECK TOP SCH (09:16)
--- NOTE | 2017-12-22 09:19 | PN ---
DATE OF SERVICE: 12/22/2017 SUBJECTIVE: Amy is postoperative day 1. She had a rash with blotchy skin. Blood pressure elevation. In recovery room, she was given some Solu-Medrol in recovery room with Benadryl on the floor. She is doing better now. Pain is controlled. She is sleepy. Upper GI this morning was normal. REVIEW OF SYSTEMS: Remainder of review of systems negative for any pertinent positives and negatives. OBJECTIVE: GENERAL: Amy Meza is a 37-year-old female, sleepy. Answers questions appropriately. VITAL SIGNS: TPR 99.2, 67, 16. Blood pressure 140/76. HEENT: Negative. NECK: Supple. HEART: Regular rate and rhythm. LUNGS: Clear. ABDOMEN: Dressings dry and intact. Abdominal binder is on. EXTREMITIES: Without peripheral edema. ASSESSMENT: Exploratory laparotomy with lysis of adhesion, revision of the JJ component of the Gilson-en-Y gastric bypass surgery, separate small bowel strictureplasty, repair of multifocal incarcerated incisional hernia and rectosigmoid colon resection with coloproctostomy for partial SBO with fixed stricture at the JJ segment, focal stricture in the mid common limb of the small bowel, multifocal incisional hernia, sigmoid colon volvulus. Date of surgery 12/21/2017. PLAN: 1. Discontinue Bhatt catheter. 2. Discontinue dressing, may shower. 3. Step 3 gastric bypass diet. 4. Decrease IV to 100 mL per hour. 5. Good pulmonary toilet. 6. Zofran 4 mg ODT q.4 hours p.r.n. nausea. 7. We will evaluate p.r.n. or in a.m. Tomasa Cadena PA-C /[id number]
[2017-12-22] MEDS: Gabapentin 250 MG/5 ML Solution ML 470 ML Bottle PO SCH ×3 (09:20→21:06)
[2017-12-22] MEDS: ALPRAZolam 0.5 MG Tab PO PRN ×2 (11:05→21:07)
[2017-12-22] MEDS: Pantoprazole 40 MG Vial IV SCH (15:10)
[2017-12-22] MEDS: MVI, Adult with Vitamin K 10 ML, Thiamine 100 MG, Chromium/Copper/Mang/Selen/Zn 1 ML in... IV SCH ×4 (17:18)
[2017-12-22] MEDS: Melatonin 3 MG Tab PO SCH (21:07)
[2017-12-23] MEDS: Acetaminophen Soln 650 MG/20.3 ML UD Cup PO SCH ×2 (00:09→06:30)
[2017-12-23] MEDS: Dextrose 5%-Lactated Ringers 1,000 ML IV SCH (00:14)
[2017-12-23] MEDS: Celecoxib 200 MG Cap PO SCH (07:36)
[2017-12-23] MEDS: Heparin Sodium 5,000 Units/ML Vial SUBCUT SCH ×2 (07:37→20:27)
[2017-12-23] MEDS ORDERED: Magnesium Hydroxide 400 MG/5 ML Susp 30 ML Cup PO ONE (08:00)
[2017-12-23] MEDS: Venlafaxine 75 MG Cap.ER PO SCH (08:04)
[2017-12-23] MEDS: Acetaminophen/HYDROcodone 108-2.5 MG/5 ML Soln 15 ML UD Cup PO PRN ×3 (08:04→16:06)
[2017-12-23] MEDS: Gabapentin 250 MG/5 ML Solution ML 470 ML Bottle PO SCH ×3 (08:04→20:37)
[2017-12-23] MEDS: Nicotine 14 MG/24 Hr Patch TRDERM SCH (08:42)
[2017-12-23] MEDS ORDERED: Bisacodyl 5 MG Tab PO ONE (09:00)
[2017-12-23] MEDS ORDERED: Cyanocobalamin (Vitamin B12) 1,000 MCG/ML SDV IM ONE (09:00)
[2017-12-23] MEDS: SCOPOLAMINE PATCH CHECK TOP SCH (09:46)
--- NOTE | 2017-12-23 10:02 | PN ---
DATE OF SERVICE: 12/23/2017 SUBJECTIVE: Amy is postop day 2. She has been drinking adequate amounts of fluid. Vital signs have been stable. REVIEW OF SYSTEMS: Remainder of review of systems negative for any pertinent positives and negatives. OBJECTIVE: GENERAL: Amy Meza is a 37-year-old female. She is alert, orientated. Color pale. VITAL SIGNS: TPR is 98.7, 93, 16, blood pressure 140/88. HEENT: Negative. NECK: Supple. HEART: Regular rate and rhythm. LUNGS: Clear. ABDOMEN: Dressings dry and intact. Aquacel is on. EXTREMITIES: Without peripheral edema. ASSESSMENT: Exploratory laparotomy, lysis of adhesions, revision of the JJ component of the Gilson-en-Y gastric bypass surgery, separate small bowel strictureplasty repair of multifocal incarcerated hernia, and rectosigmoid colon resection with coloproctostomy, date of surgery 12/21/2017, Joseph Sánchez M.D. PLAN: 1. 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 2. Continuous pulse ox. 3. Discontinue Tylenol. 4. Lortab Elixir 15 mL q.4 hours p.r.n. pain. 5. Milk of magnesia 30 mL now with Dulcolax 2 tabs 1 hour after milk of magnesium. 6. Dressing off, may shower. 7. Saline lock IV. 8. Plan discharge in a.. Tomasa Cadena PA-C /[id number]
[2017-12-23] MEDS ORDERED: Pantoprazole 40 MG Tab.CR PO SCH (16:00)
[2017-12-23] MEDS ORDERED: HYDROmorphone 2 MG Tab PO PRN (17:41)
[2017-12-23] MEDS ORDERED: Acetaminophen 325 MG Tab PO PRN (17:41)
[2017-12-23] MEDS: HYDROmorphone 2 MG Tab PO PRN ×2 (17:56→22:25)
[2017-12-23] MEDS: Melatonin 3 MG Tab PO SCH (20:31)
[2017-12-23] MEDS: ALPRAZolam 0.5 MG Tab PO PRN (20:49)
[2017-12-24] MEDS: HYDROmorphone 2 MG Tab PO PRN ×2 (02:48→06:23)
[2017-12-24] MEDS: Nicotine 14 MG/24 Hr Patch TRDERM SCH (08:19)
[2017-12-24] MEDS: Heparin Sodium 5,000 Units/ML Vial SUBCUT SCH (08:19)
[2017-12-24] MEDS: Celecoxib 200 MG Cap PO SCH (08:20)
[2017-12-24] MEDS: Venlafaxine 75 MG Cap.ER PO SCH (08:20)
[2017-12-24] MEDS: Gabapentin 250 MG/5 ML Solution ML 470 ML Bottle PO SCH (08:24)
[2017-12-24] MEDS ORDERED: Acetaminophen/HYDROcodone 325-5 MG Tab PO PRN (08:43)
[2017-12-24] MEDS ORDERED: Ondansetron 4 MG Tab.DIS PO PRN (08:44)
--- NOTE | 2017-12-27 12:51 | OR ---
DATE OF PROCEDURE: 12/21/2017 PREOPERATIVE DIAGNOSIS: Partial small bowel obstruction. POSTOPERATIVE DIAGNOSES: 1. Partial small bowel obstruction with fixed stricture at jejunojejunostomy. 2. Separate focal stricture at mid-common limb of small bowel. 3. Multifocal incarcerated incisional hernia. 4. Sigmoid colon volvulus. OPERATIVE PROCEDURES: Exploratory laparotomy with lysis of adhesions and; 1. Revision of jejunojejunostomy component of Gilson-en-Y gastric bypass (74507). 2. Separate small bowel stricturoplasty (81893). 3. Repair of multifocal incarcerated incisional hernia (87451). 4. Rectosigmoid colon resection with coloproctostomy (61963). ANESTHESIA: General. INDICATIONS FOR PROCEDURE: This 37-year-old is status post Gilson-en-Y gastric bypass, presenting with a picture of partial small bowel obstruction. After preoperative evaluation and discussion, she wished to proceed with an exploratory laparotomy. Due to the extent of the bowel distention, we opted not to proceed with an initial laparoscopy. The plan will be to proceed with lysis of adhesions and/or bowel resection as indicated as well as any additional indicated surgical issues that might occur. The potential risks of the procedure including bleeding, infection, leaks from various GI tract closures, problems with the bowel obstruction recurring over time, as well as possibility of cardiopulmonary, septic, or hemorrhagic complications leading to were discussed, and the patient wishes to proceed. DETAILS OF PROCEDURE: The patient was taken to the operating room and placed in a supine position. After general endotracheal anesthesia was induced, a Bhatt catheter was inserted, and the abdomen prepped and draped. Bilateral subcostal transversus abdominis plane blocks were then placed using standard solution and continuous ultrasound monitoring. The upper midline incision was then made and carried down through the skin and subcutaneous tissue and into the peritoneal cavity. Upon entering the peritoneal cavity, two points of obstruction were identified. There was a fixed stricture at the point where the Gilson limb joined the jejunojejunostomy. The biliopancreatic limb was unremarkable. As one traced down more or less to the midportion of the Gilson limb after lysis of adhesions, there was also a strictured area at that location. During the entrance of the abdomen, multiple small hernias, which contained incarcerated, preperitoneal fat and in one case omentum were identified and these were reduced, and the specimen either returned to the peritoneal cavity or excised. One additional striking finding was that of a markedly dilated sigmoid colon, which was at this point partially turned on itself. There was a crease at the base of the angulation indicating this was somewhat of a chronic condition. Given this, a decision was made also then to proceed with a rectosigmoid colon resection. At this point, the jejunojejunostomy was then detached from the Gilson limb with a TAISHA stapler. Small amount of this was then resected with another firing of the TAISHA stapler. This led the patient to have a Gilson limb now in the range of 110 cm. The jejunojejunostomy was then revised roughly 20 cm distal to the original anastomotic site, giving the patient a long common limb in the range of around 450 cm. This was accomplished with internal firing of the TAISHA 60-mm stapler. Common opening was closed transversely with the same stapler, angles were anastomosed, and were reinforced with some 3-0 Vicryl stitch, and mesenteric defect then closed with a running 2-0 silk stitch. The stricturoplasty was then accomplished by flipping the bowel over on itself making an enterotomy at the apex of the stricture and one internal firing of the TAISHA 60-mm stapler, which was followed by another internal firing of the 45-mm stapler. The common opening was then closed transversely with the TAISHA purple load. There was no mesenteric defect in this case, and the angles of anastomosis were reinforced with some 3-0 Vicryl stitch. At this point, the mid-sigmoid colon was divided as was the upper rectum, both with the TAISHA staplers. A [id number] coloproctostomy was accomplished, again in this case with an internal firing of the 60-mm kruse load followed by a 45-mm internal firing of the kruse load and the common opening was then closed transversely with the combination of purple and blue loads. The angles of anastomosis in this case were likewise reinforced with some 3-0 Vicryl stitch, and the mesenteric defect closed with a 2-0 silk stitch. At this point, no further problems were noted. The abdomen was irrigated with antibiotic-containing saline solution. The patient had sufficient omentum to cover up the area of the incision. Incision was then closed with a running #2 Vicryl stitch at the fascia level. Subcutaneous tissue was approximated with 2 layers of 3-0 Vicryl stitches. A 10-Kyrgyz round Keenan-Burger drain had been placed through the stab wound inferior to the main incision and sutured with 4-0 Vicryl stitch as well. The skin closed with sierra. The patient was taken to the recovery room in a satisfactory condition. There were no evident complications. Joseph Sánchez MD /[id number]
--- NOTE | 2017-12-27 15:25 | DISCH ---
ADMISSION DIAGNOSES: Partial small bowel obstruction, status post Gilson-en-Y gastric bypass surgery, unspecified surgical malabsorption, and B12 deficiency. DISCHARGE DIAGNOSES: Exploratory laparotomy with lysis of adhesions, revision of the jejunojejunostomy junction of the Gilson-en-Y gastric bypass surgery, separate small bowel stricturoplasty, repair of multifocal incarcerated hernia, and rectosigmoid colon resection with coloproctostomy. Date of surgery, 12/21/2017. Joseph Sánchez MD. HISTORY: Amy is status post Gilson-en-Y gastric bypass surgery, who has had postprandial abdominal pain. After preoperative evaluation and discussion of possible risks and possible complications, she wished to proceed with surgical procedure. HOSPITAL COURSE: Amy had her surgery on 12/21/2017. Amy had no operative complications with the exception, in the recovery room, she developed a rash. She was given some Solu- Medrol and Benadryl. Pain was controlled. Bhatt catheter discontinued. 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 She was started on oral pain medication. She was given some bowel stimulation. On 12/24/2017, vital signs were stable. She had 3 bowel movements. Oral intake was adequate. She was ambulating the halls in the hospital. She had no other complaints or symptoms. PHYSICAL EXAMINATION: GENERAL: Amy Meza is a 37-year-old female. VITAL SIGNS: Height is 5 feet 1.8 inches. Weight is 162 pounds. TPR is 98.3, 80, 16, and blood pressure 116/67. HEENT: Negative. NECK: Supple. HEART: Regular rate and rhythm. LUNGS: Clear. ABDOMEN: Incision looks good. Arnold intact. Abdominal binder is on. EXTREMITIES: Without peripheral edema. DISPOSITION: Discharged to home. CONDITION: Stable and improving. FOLLOWUP APPOINTMENT: With Tomasa Cadena PA-C, on 01/05/2018 at 10 a.m. DISCHARGE MEDICATIONS: New Prescriptions: 1. Tylenol 650 mg q.4 hours p.r.n. pain. 2. [place] 5/325 mg 1 to 2 q.4 hours p.r.n. pain, #40. 3. Celebrex 1 p.o. daily #14. 4. Zofran 4 mg ODT sublingual p.r.n. nausea, #30. Home Medications: 1. Xanax 1 mg at bedtime. 2. Calcium carbonate-vitamin D3 one twice daily. 3. Vitamin D 5000 international units daily. 4. Vitamin B12 1000 mcg sublingual daily. 5. Bentyl 20 mg oral before meals and at bedtime. 6. Ferrous fumarate 65/25 mg one twice daily. 7. Multivitamin chewable b.i.d. 8. Venlafaxine ER 75 mg oral daily. 9. Vitamin complex one daily. DISCHARGE DIET: Step-3 gastric bypass diet. Drink 8 to 10 glasses of water a day. ACTIVITY: No lifting greater than 10 pounds for 6 weeks. Driving, do not drive while on pain medication. Shower/bathing, may shower. No tub bathing or swimming. DISCHARGE INSTRUCTIONS: Notify provider if fever, increased pain, nausea, or vomiting. Keep site clean and dry. Wear abdominal binder for 6 weeks and then as tolerated. Use incentive spirometer 10 times every hour while awake for 1 week.
== END 2017-12-24 09:45 | disposition home or self-care (01) | DRG 330 ==
LOC: JP.MS 14:30 → JP.2SS 16:07
PROVIDERS: ADMIT Surgery; ATTEND Surgery
PROC: 0DBA0ZX Excision of Jejunum, Open Approach, Diagnostic (ICD-10-PCS; principal; 2017-12-21)
PROC: 0D1N0ZP Bypass Sigmoid Colon to Rectum, Open Approach (ICD-10-PCS; 2017-12-21)
PROC: 0DQV0ZZ Repair Mesentery, Open Approach (ICD-10-PCS; 2017-12-21)
PROC: 0DBN0ZX Excision of Sigmoid Colon, Open Approach, Diagnostic (ICD-10-PCS; 2017-12-21)
PROC: 0DBP0ZX Excision of Rectum, Open Approach, Diagnostic (ICD-10-PCS; 2017-12-21)
PROC: 0DNW0ZZ Release Peritoneum, Open Approach (ICD-10-PCS; 2017-12-21)
PROC: 0DB80ZX Excision of Small Intestine, Open Approach, Diagnostic (ICD-10-PCS; 2017-12-21)
PROC: 3E0T3BZ Introduction of Anesthetic Agent into Peripheral Nerves and Plexi, Percutaneous Approach (ICD-10-PCS; 2017-12-21)
DX: K56.51 Intestinal adhesions [bands], with partial obstruction (principal); K43.0 Incisional hernia with obstruction, without gangrene; K59.39 Other megacolon; K91.2 Postsurgical malabsorption, not elsewhere classified; K56.2 Volvulus; K56.690 Other partial intestinal obstruction; F32.9 Major depressive disorder, single episode, unspecified; E53.8 Deficiency of other specified B group vitamins; E55.9 Vitamin D deficiency, unspecified; Z98.84 Bariatric surgery status; Z98.0 Intestinal bypass and anastomosis status; R21 Rash and other nonspecific skin eruption
CPT/HCPCS: 36415; 51702; 74240; 74240-26; 80053; 82150; 82306; 82607; 82728; 82746; 83690; 83735; 84100; 84425; 85027; 88302; 88305; 88307; 94762; A9270-GY; C9113; J0171; J0694; J1100; J1170; J1200; J1644; J2001; J2060; J2185; J2310; J2405; J2704; J2710; J2795; J2920; J3010; J3410; J3411; J3420; J7030; J7042; J7050; J7120; Q9967

== ENCOUNTER 2018-11-03 16:08 | Inpatient (IN) | payer MEDICAID ==
[2018-11-03] MEDS ORDERED: HYDROmorphone 0.5 MG/0.5 ML Syringe IVPUSH ONE (18:32)
--- NOTE | 2018-11-03 18:38 | EDM.PDOC ---
ED HPI GENERAL MEDICAL PROBLEM - General Chief Complaint: Abdominal Pain Stated Complaint: STOMACH PAINS Time Seen by Provider: 11/03/18 18:20 Source of Information: Reports: Patient, Old Records History Limitations: Reports: No Limitations - History of Present Illness INITIAL COMMENTS - FREE TEXT/NARRATIVE: 38 yo female with a pHx of gastric bypass presents with epigastric pain and nausea that has been progressive for the past 3 weeks and gets much worse with attempts at eating. No change in stools. Is not sure if she's had fevers or not. Today was the first time she sought medical care and was told to come to the ER. Has had multiple other abdominal surgeries as well. Here with her . Onset: Gradual Onset Date: 10/13/18 Duration: Week(s): (3), Getting Worse Location: Reports: Abdomen Quality: Reports: Sharp Severity: Moderate Improves with: Reports: Other (not eating). Denies: Eating Worsens with: Reports: Eating Context: Reports: Other (see HPI) Associated Symptoms: Reports: Nausea/Vomiting (no vomiting) Treatments ALL ROUND BUTCHER: Reports: Other (see below) (none) - Related Data Allergies Allergy/AdvReac Type Severity Reaction Status Date / Time Penicillins Allergy Hives Verified 11/03/18 17:52 propoxyphene AdvReac Cannot Verified 11/03/18 17:52 [From Luis] [facility] Allergy Severe infection Uncoded 11/03/18 17:52 Home Meds: Home Meds ALPRAZolam [Xanax] 1 mg PO BEDTIME 08/12/17 [History] Venlafaxine HCl [Venlafaxine ER] 75 mg PO DAILY 08/13/17 [History] Cholecalciferol (Vitamin D3) [Vitamin D3] 5,000 unit PO DAILY 08/16/17 [History] Cyanocobalamin (Vitamin B-12) [Vitamin B-12] 1,000 mcg SL DAILY 08/16/17 [ History] Ped Multivit #38/Iron Fumarate [Hm Animal Shapes Complete Chew] 18 mg PO BID 03/26 [History] Vitamin B Complex [B Complex] 1 each PO DAILY 08/16/17 [History] Acetaminophen [Tylenol] 650 mg PO Q4H PRN tablet 12/24/17 [Rx] Acetaminophen/HYDROcodone [[place] 325-5 MG] 1 - 2 tab PO Q4H PRN #40 tablet 12/24 [Rx] Ondansetron [Zofran ODT] 4 mg PO Q4H PRN #30 tab.dis 12/24/17 [Rx] Past Medical History HEENT History: Reports: Impaired Vision, Other (See Below) Other HEENT History: "10% hearing left ear" Gastrointestinal History: Reports: Bowel Obstruction, Cholelithiasis Genitourinary History: Reports: None COMPANION History: Reports: Dysfunctional Uterine Bleeding, Fibroids, Polycystic Ovaries, Musculoskeletal History: Reports: Other (See Below) Other Musculoskeletal History: right knee "two cysts and meniscus tear". Neurological History: Reports: Other (See Below) Other Neuro History: patient reports "seizure" recently and did not go to the hospital or get follow up. Psychiatric History: Reports: Anxiety, Depression Endocrine/Metabolic History: Reports: Obesity/BMI 30+ Hematologic History: Reports: B12 Deficiency, Blood Transfusion(s) - Infectious Disease History Infectious Disease History: Reports: Chicken Pox - Past Surgical History HEENT Surgical History: Reports: Myringotomy w Tube(s), Other (See Below) Other HEENT Surgeries/Procedures: skin grafting with ear drum repair GI Surgical History: Reports: Bariatric Procedure, Cholecystectomy, Colon, EGD, Hernia Repair/Other, Lysis of Adhesions, Small Bowel Female Surgical History: Reports: Hysterectomy, Tubal Ligation, Other (See Below) Other Female Surgeries/Procedures: "partial hysterectomy" Musculoskeletal Surgical History: Reports: None Social & Family History - Family History Family Medical History: Noncontributory - Tobacco Use Smoking Status *Q: Light Tobacco Smoker Years of Tobacco use: 10 Packs/Tins Daily: 0.2 - Caffeine Use Caffeine Use: Reports: Soda - Recreational Drug Use Recreational Drug Use: No ED ROS GENERAL - Review of Systems Review Of Systems: See Below Constitutional: Reports: No Symptoms HEENT: Reports: No Symptoms Respiratory: Reports: No Symptoms Cardiovascular: Reports: No Symptoms Endocrine: Reports: No Symptoms GI/Abdominal: Reports: Abdominal Pain, Nausea. Denies: Anorexia, Black Stool, Bloody Stool, Constipation, Diarrhea, Distension, Flatus, Hematemesis, Hematochezia, Melena, Vomiting : Reports: No Symptoms Musculoskeletal: Reports: No Symptoms Skin: Reports: No Symptoms Neurological: Reports: No Symptoms Psychiatric: Reports: No Symptoms Hematologic/Lymphatic: Reports: No Symptoms ED EXAM, GI/ABD - Physical Exam Exam: See Below Exam Limited By: No Limitations General Appearance: Alert, WD/WN, No Apparent Distress Eyes: Bilateral: Normal Appearance Ears: Normal External Exam, Normal Canal, Hearing Grossly Normal, Normal TMs Nose: Normal Inspection, No Blood Throat/Mouth: Normal Inspection, Normal Lips, Normal Oropharynx, Normal Voice, No Airway Compromise Head: Atraumatic, Normocephalic Neck: Normal Inspection, Supple, Non-Tender Respiratory/Chest: No Respiratory Distress, Lungs Clear, Normal Breath Sounds, No Accessory Muscle Use Cardiovascular: Regular Rate, Rhythm, No Edema GI/Abdominal Exam: Normal Bowel Sounds, Soft, No Distention, Tender (upper abdomen) Back Exam: Normal Inspection. No: CVA Tenderness (R), CVA Tenderness (L) Extremities: Normal Inspection, Normal Range of Motion, Non-Tender, No Pedal Edema Neurological: Alert, Oriented, CN II-XII Intact, Normal Cognition, No Motor/ Sensory Deficits Psychiatric: Normal Affect, Normal Mood Skin Exam: Warm, Dry, Intact, Normal Color, No Rash Course - Vital Signs Last Recorded V/S: Last Vital Signs Temp 36.7 C 11/03/18 17:50 Pulse 84 11/03/18 17:50 Resp 16 11/03/18 17:50 BP 166/100 H 11/03/18 17:50 Pulse Ox 97 11/03/18 17:50 - Orders/Labs/Meds Orders: Active Orders 24 hr Category Date Time Status Iopamidol [Isovue-300 (61%)] Med 11/03/18 19:00 Active 100 ml IV . DIRECTED Lactated Ringers [Ringers, Lactated] 1,000 ml Med 11/03/18 18:45 Active IV ASDIRECTED Sodium Chloride 0.9% [Normal Saline] 80 ml Med 11/03/18 19:00 Active IV ASDIRECTED Sodium Chloride 0.9% [Saline Flush] Med 11/03/18 18:51 Active 10 ml FLUSH ASDIRECTED PRN Medication Orders Lactated Ringer's (Ringers, Lactated) 1,000 mls @ 500 mls/hr IV ASDIRECTED TOMAS Last Admin: 11/03/18 18:45 Dose: 500 mls/hr Sodium Chloride (Normal Saline) 80 mls @ 3 mls/sec IV ASDIRECTED TOMAS Last Admin: 11/03/18 19:14 Dose: 3 mls/sec Iopamidol (Isovue-300 (61%)) 100 ml IV . DIRECTED TOMAS Last Admin: 11/03/18 19:14 Dose: 100 ml Sodium Chloride (Saline Flush) 10 ml FLUSH ASDIRECTED PRN PRN Reason: Keep Vein Open Last Admin: 11/03/18 19:14 Dose: 10 ml Labs: Laboratory Tests 11/03/18 11/03/18 11/03/18 Range/Units 18:45 18:45 18:46 WBC 11.9 H (4.5-11.0) K/uL RBC 3.74 (3.30-5.50) M/uL Hgb 13.0 (12.0-15.0) g/dL Hct 39.7 (36.0-48.0) % MCV 106 H (80-98) fL MCH 35 H (27-31) pg MCHC 33 (32-36) % Plt Count 426 H (150-400) K/uL Sodium 138 L (140-148) mmol/L Potassium 3.5 L (3.6-5.2) mmol/L Chloride 103 (100-108) mmol/L Carbon Dioxide 29 (21-32) mmol/L Anion Gap 9.5 (5.0-14.0) mmol/L BUN 7 (7-18) mg/dL Creatinine 0.6 (0.6-1.0) mg/dL Est Cr Clr Drug Dosing 101.53 mL/min Estimated GFR (MDRD) > 60 (>60) Glucose 81 (74-106) mg/dL Calcium 8.9 (8.5-10.1) mg/dL Lipase 140 (73-393) U/L Urine Color Yellow Urine Appearance Clear Urine pH 7.0 (4.5-8.0) Ur Specific [place] 1.015 (1.008-1.030) Urine Protein Negative (NEGATIVE) mg/dL Urine Glucose (UA) Normal (NEGATIVE) mg/dL Urine Ketones Negative (NEGATIVE) mg/dL Urine Occult Blood Negative (NEGATIVE) Urine Nitrite Negative (NEGATIVE) Urine Bilirubin Negative (NEGATIVE) Urine Urobilinogen Normal (NORMAL) mg/dL Ur Leukocyte Esterase Negative (NEGATIVE) Urine RBC Not seen (0-5) Urine WBC 0-5 (0-5) Ur Epithelial Cells Moderate Amorphous Sediment Not seen Urine Bacteria Moderate Urine Mucus Not seen Urine HCG, Qual 11/03/18 Range/Units 18:46 WBC (4.5-11.0) K/uL RBC (3.30-5.50) M/uL Hgb (12.0-15.0) g/dL Hct (36.0-48.0) % MCV (80-98) fL MCH (27-31) pg MCHC (32-36) % Plt Count (150-400) K/uL Sodium (140-148) mmol/L Potassium (3.6-5.2) mmol/L Chloride (100-108) mmol/L Carbon Dioxide (21-32) mmol/L Anion Gap (5.0-14.0) mmol/L BUN (7-18) mg/dL Creatinine (0.6-1.0) mg/dL Est Cr Clr Drug Dosing mL/min Estimated GFR (MDRD) (>60) Glucose (74-106) mg/dL Calcium (8.5-10.1) mg/dL Lipase (73-393) U/L Urine Color Urine Appearance Urine pH (4.5-8.0) Ur Specific [place] (1.008-1.030) Urine Protein (NEGATIVE) mg/dL Urine Glucose (UA) (NEGATIVE) mg/dL Urine Ketones (NEGATIVE) mg/dL Urine Occult Blood (NEGATIVE) Urine Nitrite (NEGATIVE) Urine Bilirubin (NEGATIVE) Urine Urobilinogen (NORMAL) mg/dL Ur Leukocyte Esterase (NEGATIVE) Urine RBC (0-5) Urine WBC (0-5) Ur Epithelial Cells Amorphous Sediment Urine Bacteria Urine Mucus Urine HCG, Qual Negative Meds: Medications Generic Name Dose Route Start Last Admin Trade Name Freq PRN Reason Stop Dose Admin Lactated Ringer's 1,000 mls @ 500 mls/hr 11/03/18 18:45 11/03/18 18:45 Ringers, Lactated IV 500 mls/hr ASDIRECTED TOMAS Administration Sodium Chloride 80 mls @ 3 mls/sec 11/03/18 19:00 11/03/18 19:14 Normal Saline IV 3 mls/sec ASDIRECTED TOMAS Administration Iopamidol 100 ml 11/03/18 19:00 11/03/18 19:14 Isovue-300 (61%) IV 100 ml . DIRECTED TOMAS Administration Sodium Chloride 10 ml 11/03/18 18:51 11/03/18 19:14 Saline Flush FLUSH 10 ml ASDIRECTED PRN Administration Keep Vein Open Discontinued Medications Generic Name Dose Route Start Last Admin Trade Name Husseinq PRN Reason Stop Dose Admin Fentanyl 100 mcg 11/03/18 20:05 Sublimaze IVPUSH 11/03/18 20:06 ONETIME ONE Hydromorphone HCl 0.5 mg 11/03/18 18:32 11/03/18 18:45 Dilaudid IVPUSH 11/03/18 18:33 0.5 mg ONETIME ONE Administration Metoclopramide HCl 10 mg 11/03/18 18:59 11/03/18 19:04 Reglan IVPUSH 11/03/18 19:00 10 mg ONETIME ONE Administration - Radiology Interpretation Free Text/Narrative:: Abd/pelvis CT with IV contrast-nothing acute CT Results Date: 11/03/18 Departure - Departure Time of Disposition: 20:14 Disposition: Refer to Observation Condition: Fair Clinical Impression: Abdominal pain Qualifiers: Abdominal location: upper abdomen, unspecified Qualified Code(s): R10.10 - Upper abdominal pain, unspecified - Discharge Information *PRESCRIPTION DRUG MONITORING PROGRAM REVIEWED*: No *COPY OF PRESCRIPTION DRUG MONITORING REPORT IN PATIENT RICK: No Referrals: Moises Brooks MD [Primary Care Provider] - Forms: ED Department Discharge - My Orders Last 24 Hours: My Active Orders 11/03/18 18:45 Lactated Ringers [Ringers, Lactated] 1,000 ml IV ASDIRECTED 11/03/18 18:51 Sodium Chloride 0.9% [Saline Flush] 10 ml FLUSH ASDIRECTED PRN 11/03/18 19:00 Iopamidol [Isovue-300 (61%)] 100 ml IV . DIRECTED Sodium Chloride 0.9% [Normal Saline] 80 ml IV ASDIRECTED - Assessment/Plan Last 24 Hours: My Active Orders 11/03/18 18:45 Lactated Ringers [Ringers, Lactated] 1,000 ml IV ASDIRECTED 11/03/18 18:51 Sodium Chloride 0.9% [Saline Flush] 10 ml FLUSH ASDIRECTED PRN 11/03/18 19:00 Iopamidol [Isovue-300 (61%)] 100 ml IV . DIRECTED Sodium Chloride 0.9% [Normal Saline] 80 ml IV ASDIRECTED
[2018-11-03] MEDS ORDERED: Lactated Ringers 1,000 ML IV SCH (18:45)
[2018-11-03] MEDS ORDERED: Sodium Chloride 0.9% 10 ML Syringe FLUSH PRN (18:51)
[2018-11-03] MEDS ORDERED: Metoclopramide 10 MG/2 ML SDV IVPUSH ONE (18:59)
[2018-11-03] MEDS ORDERED: Sodium Chloride 0.9% 80 ML IV SCH (19:00)
[2018-11-03] MEDS ORDERED: Iopamidol 612 MG/ML 100 ML Bottle IV SCH (19:00)
--- NOTE | 2018-11-03 19:46 | CRLCT ---
HISTORY: Abdominal pain. TECHNIQUE: Intravenous contrast enhanced CT of the abdomen and pelvis. 100 mL of Isovue-300 intravenous contrast administered. COMPARISON: 01/14/2018. FINDINGS: Sub cm lesion within the dome of liver on image #60 of series 2 is unchanged. While too small to characterize, this is more likely benign. Patient is status postcholecystectomy. There is dilatation of the extrahepatic bile duct which may relate to postcholecystectomy reservoir effect. This could be correlated with LFTs. The duct appears more dilated than at the prior CT. There is also mild prominence of the intrahepatic biliary ductal system. The spleen and adrenal glands are normal. There is no focal pancreatic abnormality or acute peripancreatic inflammatory change. Symmetric nephrograms. No renal mass or hydronephrosis. No obstructive urinary calculus. Urinary bladder does not appear overly distended. - Patient is status post hysterectomy. Cystic right adnexal lesion measuring 4.3 cm in size could reflect an ovarian cyst though would be more optimally characterized with ultrasound. The left ovary is grossly unremarkable. - Postsurgical changes of gastric bypass. The excluded portion stomach does not appear excessively distended. There is no small bowel obstruction. No appendicitis. Gas distention of the sigmoid colon is noted. No free intraperitoneal air or abdominal fluid collection. No abdominal aortic aneurysm. - There are subacute fractures of the left anterior 10th and 9th ribs and possibly of the 8th rib. Patchy nodular infiltrate within the left lower lobe is likely infectious or inflammatory. IMPRESSION: 1. Patchy nodular infiltrate within the left lower lobe is likely infectious or inflammatory. 2. Subacute fractures of the left anterior 9th and 10th ribs and possibly 8th rib. 3. Postsurgical changes of gastric bypass. No bowel obstruction. 4. Gas distention of the sigmoid colon. 5. Prior cholecystectomy. Dilatation of the biliary system may relate to postcholecystectomy reservoir effect though may be correlate with LFTs. Degree of extrahepatic bile duct dilatation is increased. 6. 4.3 cm right adnexal cystic lesion may represent an ovarian cyst though would be more optimally characterized with ultrasound. Dictated by Cecilio Cruz MD @ 11/03/2018 7:44:38 PM Please note that all CT scans at this facility use dose modulation, iterative reconstruction, and/or weight-based dosing when appropriate to reduce radiation dose to as low as reasonably achievable. Dictated by: Cecilio Cruz MD @ 11/03/2018 19:44:43 (Electronically Signed)
[2018-11-03] MEDS ORDERED: fentaNYL 100 MCG/2 ML SDV IVPUSH ONE (20:05)
[2018-11-03] MEDS ORDERED: Ondansetron 4 MG/2 ML SDV IVPUSH PRN (20:27)
[2018-11-03] MEDS ORDERED: fentaNYL 100 MCG/2 ML SDV IVPUSH PRN (20:28)
[2018-11-03] MEDS ORDERED: Pantoprazole 40 MG Vial IVPUSH SCH (20:30)
[2018-11-03] MEDS ORDERED: ALPRAZOLAM 1 MG PO SCH (21:00)
[2018-11-03] MEDS: Lactated Ringers 1,000 ML IV SCH (22:51)
[2018-11-03] MEDS ORDERED: ALPRAZolam 0.5 MG Tab PO ONE ×2 (23:15→23:37)
[2018-11-03] MEDS: Acetaminophen 325 MG Tab PO PRN (23:41)
[2018-11-03] MEDS: fentaNYL 100 MCG/2 ML SDV IVPUSH PRN (23:42)
[2018-11-04] MEDS: fentaNYL 100 MCG/2 ML SDV IVPUSH PRN ×3 (01:08→06:30)
[2018-11-04] MEDS: Acetaminophen 325 MG Tab PO PRN ×2 (03:25→09:14)
[2018-11-04] MEDS: Lactated Ringers 1,000 ML IV SCH (06:31)
--- NOTE | 2018-11-04 07:57 | PCM.HP ---
H&P History of Present Illness - General Date of Service: 11/04/18 Admit Problem/Dx: Admission Diagnosis/Problem Admission Diagnosis/Problem Abdominal pain Source of Information: Patient - History of Present Illness Initial Comments - Free Text/Narative: Amy was seen in the ED yesterday for a 3 week history of abdominal pain. Pain is in the mid epigastric area and will radiate to the right and left of the upper abdomen. Associated with nausea. No vomiting, diarrhea or constipation Aggravating factors: eating Alleviating factors: none at home but the Fentanyl is helping has not tried anything at home. No other associated signs or symptoms. Symptom Onset Date: 10/09/18 Duration of Symptoms: Reports: Getting Worse, Waxing/Waning Location: Reports: Abdomen Quality: Reports: Ache, Pressure Severity: Moderate Improves with: Reports: Medication (Fentanyl ) Worsens with: Reports: Eating Associated Symptoms: Reports: Other (nausea ) Abdominal Pain Score (Numeric/FACES): 8 - Related Data Allergies/Adverse Reactions: Allergies Allergy/AdvReac Type Severity Reaction Status Date / Time Penicillins Allergy Hives Verified 11/03/18 17:52 propoxyphene AdvReac Cannot Verified 11/03/18 17:52 [From Darvocet-N] [facility] Allergy Severe infection Uncoded 11/03/18 17:52 Home Medications: Home Meds ALPRAZolam [Xanax] 2 mg PO BEDTIME 08/12/17 [History] Venlafaxine HCl [Venlafaxine ER] 75 mg PO DAILY 08/13/17 [History] Cholecalciferol (Vitamin D3) [Vitamin D3] 5,000 unit PO DAILY 08/16/17 [History] Cyanocobalamin (Vitamin B-12) [Vitamin B-12] 1,000 mcg SL DAILY 08/16/17 [ History] Ped Multivit #38/Iron Fumarate [Hm Animal Shapes Complete Chew] 18 mg PO BID 03/26 [History] Vitamin B Complex [B Complex] 1 each PO DAILY 08/16/17 [History] Acetaminophen [Tylenol] 650 mg PO Q4H PRN tablet 12/24/17 [Rx] Acetaminophen/HYDROcodone [[place] 325-5 MG] 1 - 2 tab PO Q4H PRN #40 tablet 12/24 [Rx] Ondansetron [Zofran ODT] 4 mg PO Q4H PRN #30 tab.dis 12/24/17 [Rx] Past Medical History HEENT History: Reports: Impaired Vision, Other (See Below) Other HEENT History: "10% hearing left ear" Gastrointestinal History: Reports: Bowel Obstruction, Cholelithiasis Genitourinary History: Reports: None [employer] COUNSELOR History: Reports: Dysfunctional Uterine Bleeding, Fibroids, Polycystic Ovaries, Musculoskeletal History: Reports: Other (See Below) Other Musculoskeletal History: right knee "two cysts and meniscus tear". Neurological History: Reports: Other (See Below) Other Neuro History: patient reports "seizure" recently and did not go to the hospital or get follow up. Psychiatric History: Reports: Anxiety, Depression Endocrine/Metabolic History: Reports: Obesity/BMI 30+ Hematologic History: Reports: B12 Deficiency, Blood Transfusion(s) - Infectious Disease History Infectious Disease History: Reports: Chicken Pox - Past Surgical History HEENT Surgical History: Reports: Myringotomy w Tube(s), Other (See Below) Other HEENT Surgeries/Procedures: skin grafting with ear drum repair GI Surgical History: Reports: Bariatric Procedure, Cholecystectomy, Colon, EGD, Hernia Repair/Other, Lysis of Adhesions, Small Bowel Female Surgical History: Reports: Hysterectomy, Tubal Ligation, Other (See Below) Other Female Surgeries/Procedures: "partial hysterectomy" Musculoskeletal Surgical History: Reports: None Social & Family History - Family History Family Medical History: Noncontributory - Tobacco Use Smoking Status *Q: Light Tobacco Smoker Years of Tobacco use: 10 Packs/Tins Daily: 0.2 - Caffeine Use Caffeine Use: Reports: Soda - Recreational Drug Use Recreational Drug Use: No H&P Review of Systems - Review of Systems: Review Of Systems: ROS reveals no pertinent complaints other than HPI. Exam - Exam Exam: See Below - Vital Signs Vital Signs: Last Vital Signs Temp 98.1 F 11/04/18 03:00 Pulse 102 H 11/04/18 03:00 Resp 18 11/04/18 03:00 BP 115/85 11/04/18 03:00 Pulse Ox 92 L 11/04/18 07:20 Weight: 145 lb 4 oz - Exam Quality Assessment: DVT Prophylaxis General: Alert, Oriented, Cooperative HEENT: PERRLA, Conjunctiva Clear Neck: Supple, Trachea Midline Lungs: Clear to Auscultation, Normal Respiratory Effort Cardiovascular: Regular Rate, Regular Rhythm GI/Abdominal Exam: Soft, Non-Tender, No Distention (Female) Exam: Deferred Rectal (Female) Exam: Deferred Back Exam: Normal Inspection, Full Range of Motion Extremities: Normal Inspection, Normal Range of Motion Skin: Warm, Dry, Intact Neurological: Cranial Nerves Intact, Reflexes Equal Bilateral Neuro Extensive - Mental Status: Alert, Oriented x3, Normal Mood/Affect, Normal Cognition Neuro Extensive - Motor, Sensory, Reflexes: CN II-XII Intact Psychiatric: Alert, Normal Affect, Normal Mood - Patient Data Lab Results Last 24 hrs: Laboratory Results - last 24 hr 11/03/18 11/03/18 11/03/18 Range/Units 18:45 18:45 18:46 WBC 11.9 H (4.5-11.0) K/uL RBC 3.74 (3.30-5.50) M/uL Hgb 13.0 (12.0-15.0) g/dL Hct 39.7 (36.0-48.0) % MCV 106 H (80-98) fL MCH 35 H (27-31) pg MCHC 33 (32-36) % Plt Count 426 H (150-400) K/uL Sodium 138 L (140-148) mmol/L Potassium 3.5 L (3.6-5.2) mmol/L Chloride 103 (100-108) mmol/L Carbon Dioxide 29 (21-32) mmol/L Anion Gap 9.5 (5.0-14.0) mmol/L BUN 7 (7-18) mg/dL Creatinine 0.6 (0.6-1.0) mg/dL Est Cr Clr Drug Dosing 101.53 mL/min Estimated GFR (MDRD) > 60 (>60) Glucose 81 (74-106) mg/dL Calcium 8.9 (8.5-10.1) mg/dL Lipase 140 (73-393) U/L Urine Color Yellow Urine Appearance Clear Urine pH 7.0 (4.5-8.0) Ur Specific [place] 1.015 (1.008-1.030) Urine Protein Negative (NEGATIVE) mg/dL Urine Glucose (UA) Normal (NEGATIVE) mg/dL Urine Ketones Negative (NEGATIVE) mg/dL Urine Occult Blood Negative (NEGATIVE) Urine Nitrite Negative (NEGATIVE) Urine Bilirubin Negative (NEGATIVE) Urine Urobilinogen Normal (NORMAL) mg/dL Ur Leukocyte Esterase Negative (NEGATIVE) Urine RBC Not seen (0-5) Urine WBC 0-5 (0-5) Ur Epithelial Cells Moderate Amorphous Sediment Not seen Urine Bacteria Moderate Urine Mucus Not seen Urine HCG, Qual 11/03/18 Range/Units 18:46 WBC (4.5-11.0) K/uL RBC (3.30-5.50) M/uL Hgb (12.0-15.0) g/dL Hct (36.0-48.0) % MCV (80-98) fL MCH (27-31) pg MCHC (32-36) % Plt Count (150-400) K/uL Sodium (140-148) mmol/L Potassium (3.6-5.2) mmol/L Chloride (100-108) mmol/L Carbon Dioxide (21-32) mmol/L Anion Gap (5.0-14.0) mmol/L BUN (7-18) mg/dL Creatinine (0.6-1.0) mg/dL Est Cr Clr Drug Dosing mL/min Estimated GFR (MDRD) (>60) Glucose (74-106) mg/dL Calcium (8.5-10.1) mg/dL Lipase (73-393) U/L Urine Color Urine Appearance Urine pH (4.5-8.0) Ur Specific [place] (1.008-1.030) Urine Protein (NEGATIVE) mg/dL Urine Glucose (UA) (NEGATIVE) mg/dL Urine Ketones (NEGATIVE) mg/dL Urine Occult Blood (NEGATIVE) Urine Nitrite (NEGATIVE) Urine Bilirubin (NEGATIVE) Urine Urobilinogen (NORMAL) mg/dL Ur Leukocyte Esterase (NEGATIVE) Urine RBC (0-5) Urine WBC (0-5) Ur Epithelial Cells Amorphous Sediment Urine Bacteria Urine Mucus Urine HCG, Qual Negative Result Diagrams: 11/03/18 18:45 11/03/18 18:45 - Problem List (1) Abdominal pain SNOMED Code(s): 05330705 ICD Code: R10.9 - UNSPECIFIED ABDOMINAL PAIN Status: Acute Current Visit : Yes Qualifiers: Abdominal location: upper abdomen, unspecified Qualified Code(s): R10.10 - Upper abdominal pain, unspecified (2) Bariatric surgery status SNOMED Code(s): 743792886, 369159854, 128137347 ICD Code: Z98.84 - BARIATRIC SURGERY STATUS Status: Chronic Current Visit : No Problem List Initiated/Reviewed/Updated: Yes Orders Last 24hrs: Active Orders 24 hr Category Date Time Status Patient Status [ADT] Routine ADT 11/03/18 20:21 Active Bedrest Bathroom Privileges [RC] ASDIRECTED Care 11/03/18 20:20 Active Height and Weight [RC] DAILY Care 11/03/18 20:20 Active Oxygen Therapy [RC] PRN Care 11/03/18 20:21 Active Pulse Oximetry [RC] PRN Care 11/03/18 20:23 Active VTE/DVT Education [RC] Per Unit Routine Care 11/03/18 20:21 Active Verify Patient Consent Obtain [RC] ASDIRECTED Care 11/04/18 07:26 Active Nothing per Oral After Midnight Diet [DIET] Diet 11/03/18 Dinner Active ALPRAZolam [Xanax] Med 11/04/18 21:00 Active 2 mg PO BEDTIME Acetaminophen [Tylenol] Med 11/03/18 23:22 Active 650 mg PO Q4H PRN Glycopyrrolate Med 11/04/18 09:15 Once 0.4 mg IVPUSH ONCALL ONE Lactated Ringers [Ringers, Lactated] 1,000 ml Med 11/03/18 20:30 Active IV ASDIRECTED Ondansetron [Zofran] Med 11/03/18 20:27 Active 4 mg IVPUSH Q6H PRN Pantoprazole [ProTONIX IV] Med 11/04/18 09:00 Active 40 mg IV Q12H Sodium Chloride 0.9% [Saline Flush] Med 11/03/18 18:51 Active 10 ml FLUSH ASDIRECTED PRN fentaNYL [Sublimaze] Med 11/03/18 23:23 Active 50 mcg IVPUSH Q1H PRN Resuscitation Status Routine Resus Stat 11/03/18 20:20 Ordered Medication Orders Acetaminophen (Tylenol) 650 mg PO Q4H PRN PRN Reason: temp greater than 100.5 Last Admin: 11/04/18 03:25 Dose: 650 mg Admin: 11/03/18 23:41 Dose: 650 mg Alprazolam (Xanax) 2 mg PO BEDTIME TOMAS Fentanyl (Sublimaze) 50 mcg IVPUSH Q1H PRN PRN Reason: Pain (severe 7-10) Last Admin: 11/04/18 06:30 Dose: 50 mcg Admin: 11/04/18 03:24 Dose: 50 mcg Admin: 11/04/18 01:08 Dose: 50 mcg Admin: 11/03/18 23:42 Dose: 50 mcg Glycopyrrolate (Glycopyrrolate) 0.4 mg IVPUSH ONCALL ONE Stop: 11/04/18 09:16 Lactated Ringer's (Ringers, Lactated) 1,000 mls @ 125 mls/hr IV ASDIRECTED TOMAS Last Admin: 11/04/18 06:31 Dose: 125 mls/hr Infusion: 11/04/18 06:31 Dose: 125 mls/hr Admin: 11/03/18 22:51 Dose: 125 mls/hr Ondansetron HCl (Zofran) 4 mg IVPUSH Q6H PRN PRN Reason: Nausea/Vomiting Pantoprazole Sodium (Protonix Iv) 40 mg IV Q12H [facility] Sodium Chloride (Saline Flush) 10 ml FLUSH ASDIRECTED PRN PRN Reason: Keep Vein Open Last Admin: 11/03/18 19:14 Dose: 10 ml Assessment: Mid Epigastric Abdominal Pain Plan: EGD with possible dilation and biopsies today case to follow. Admitted for Observation Plan to discharge in AM - 11/05/18 Tomasa Amaya
[2018-11-04] MEDS ORDERED: Pantoprazole 40 MG in Sodium Chloride 0.9% 100 ML IV SCH (09:00)
[2018-11-04] MEDS: Morphine 2 MG/ML Syringe IVPUSH PRN ×2 (09:06→10:53)
[2018-11-04] MEDS ORDERED: Glycopyrrolate 0.2 MG/ML 2 ML SDV IVPUSH ONE (09:15)
[2018-11-04] MEDS: Pantoprazole 40 MG Vial IV SCH ×2 (10:24→20:59)
[2018-11-04] MEDS ORDERED: Propofol 200 MG/20 ML SDV ONE (10:55)
[2018-11-04] MEDS ORDERED: fentaNYL 100 MCG/2 ML SDV ONE (10:55)
[2018-11-04] MEDS ORDERED: Midazolam 1 MG/ML 2 ML SDV ONE (10:55)
[2018-11-04] MEDS ORDERED: Morphine PF 150 MG/30 ML PCA Syringe IV PRN (12:50)
[2018-11-04] MEDS ORDERED: Naloxone 0.4 MG/ML SDV IV PRN (12:50)
[2018-11-04] MEDS ORDERED: Acetaminophen 1,000 MG in Premix Bag 1 BAG IV PRN (17:48)
[2018-11-04] MEDS: Codeine/guaiFENesin 100mg-10 MG/5 ML Syrup 10 ML Cup PO PRN (18:05)
[2018-11-04] MEDS: Meropenem 500 MG in Sodium Chloride 0.9% 50 ML IV SCH (19:37)
[2018-11-04] MEDS: Levofloxacin/Dextrose 5%-Water 500 MG in Premix Bag 1 BAG IV SCH (20:23)
[2018-11-04] MEDS: ALPRAZolam 0.5 MG Tab PO SCH (20:58)
[2018-11-04] MEDS ORDERED: ALPRAZolam 0.5 MG Tab PO SCH (21:00)
[2018-11-05] MEDS: Codeine/guaiFENesin 100mg-10 MG/5 ML Syrup 10 ML Cup PO PRN ×4 (01:09→21:13)
[2018-11-05] MEDS: Acetaminophen 325 MG Tab PO PRN ×4 (01:10→21:12)
[2018-11-05] MEDS: Meropenem 500 MG in Sodium Chloride 0.9% 50 ML IV SCH ×4 (01:11→18:23)
--- NOTE | 2018-11-05 02:01 | CRLCR ---
INDICATION: Cough and tachycardia COMPARISON: CT of the abdomen from 11/03/2018 FINDINGS: PA and lateral views of the chest were obtained. There is moderate consolidation of the posterior-medial left lower lobe in the area of previously seen mild patchy infiltrate, consistent with worsening left lower lobe pneumonia. There is additional mild patchy and linear infiltrate in the adjacent left lower lobe. No definite pleural effusion is seen. The rest of the chest is clear. The heart is normal in size. The mediastinum is normal in appearance. The osseous structures are normal in appearance for the patient`s age. IMPRESSION: Moderate consolidation of the posterior-medial left lower lobe consistent with worsening left lower lobe pneumonia. Dictated by Guillermo Grace MD @ Nov 05 2018 1:58AM Signed by Dr. Guillermo Grace @ Nov 05 2018 2:00AM
[2018-11-05] MEDS: Pantoprazole 40 MG Vial IV SCH ×2 (09:01→21:04)
--- NOTE | 2018-11-05 09:38 | PCM.CONS ---
H&P History of Present Illness - General Date of Service: 11/05/18 Admit Problem/Dx: Admission Diagnosis/Problem Admission Diagnosis/Problem Abdominal pain Source of Information: Patient, Provider History Limitations: Reports: No Limitations - History of Present Illness Initial Comments - Free Text/Narative: Amy presented to the emergency room with epigastric pain that radiated to her back as well as subjective fevers, cough and shortness of breath. She was admitted for management of abdominal pain. I was asked to see her today by Dr. Sánchez regarding pneumonia in the left lower lobe. She reports that she had influenza 2 weeks ago and recovered over several days and was feeling better for a few days before she started to develop moderately severe sharp epigastric pain. Pain was worse with trying to eat and moving around. Pain medications at home were not helping. She reported nausea anytime she tried to eat though her appetite was good. She had subjective fevers as well as shaking chills at home but did not have a thermometer to measure her temperature. No obvious sick contacts that she was aware of. She had some diarrhea as well as muscle aches and bone pains which have resolved during the hospital stay. Last night she developed a temperature of 104 as well as significant tachycardia. She was started on levofloxacin and meropenem. Chest x-ray was obtained and suggested left lower lobe pneumonia which was worsened compared to the consolidation noted on the CT scan at the time of admission. Abdominal Pain Score (Numeric/FACES): 7 - Related Data Allergies/Adverse Reactions: Allergies Allergy/AdvReac Type Severity Reaction Status Date / Time Penicillins Allergy Hives Verified 11/03/18 17:52 propoxyphene AdvReac Cannot Verified 11/03/18 17:52 [From Luis] Remember [facility] Allergy Severe infection Uncoded 11/03/18 17:52 Home Medications: Home Meds ALPRAZolam [Xanax] 2 mg PO BEDTIME 08/12/17 [History] Venlafaxine HCl [Venlafaxine ER] 150 mg PO DAILY 08/13/17 [History] Cholecalciferol (Vitamin D3) [Vitamin D3] 5,000 unit PO DAILY 08/16/17 [History] Cyanocobalamin (Vitamin B-12) [Vitamin B-12] 1,000 mcg SL DAILY 08/16/17 [ History] Ped Multivit #38/Iron Fumarate [Hm Animal Shapes Complete Chew] 18 mg PO BID 03/26 [History] Vitamin B Complex [B Complex] 1 each PO DAILY 08/16/17 [History] Acetaminophen [Tylenol] 650 mg PO Q4H PRN tablet 12/24/17 [Rx] Acetaminophen/HYDROcodone [Decker 325-5 MG] 1 - 2 tab PO Q4H PRN #40 tablet 12/24 [Rx] Ondansetron [Zofran ODT] 4 mg PO Q4H PRN #30 tab.dis 12/24/17 [Rx] Past Medical History HEENT History: Reports: Impaired Vision, Other (See Below) Other HEENT History: "10% hearing left ear" Gastrointestinal History: Reports: Bowel Obstruction, Cholelithiasis Genitourinary History: Reports: None BRIAR WOOD SORTER History: Reports: Dysfunctional Uterine Bleeding, Fibroids, Polycystic Ovaries, Musculoskeletal History: Reports: Other (See Below) Other Musculoskeletal History: right knee "two cysts and meniscus tear". Neurological History: Reports: Other (See Below) Other Neuro History: patient reports "seizure" recently and did not go to the hospital or get follow up. Psychiatric History: Reports: Anxiety, Depression Endocrine/Metabolic History: Reports: Obesity/BMI 30+ Hematologic History: Reports: B12 Deficiency, Blood Transfusion(s) - Infectious Disease History Infectious Disease History: Reports: Chicken Pox - Past Surgical History HEENT Surgical History: Reports: Myringotomy w Tube(s), Other (See Below) Other HEENT Surgeries/Procedures: skin grafting with ear drum repair GI Surgical History: Reports: Bariatric Procedure, Cholecystectomy, Colon, EGD, Hernia Repair/Other, Lysis of Adhesions, Small Bowel Female Surgical History: Reports: Hysterectomy, Tubal Ligation, Other (See Below) Other Female Surgeries/Procedures: "partial hysterectomy" Musculoskeletal Surgical History: Reports: None Social & Family History - Family History Family Medical History: Noncontributory - Tobacco Use Smoking Status *Q: Light Tobacco Smoker Years of Tobacco use: 10 Packs/Tins Daily: 0.2 - Caffeine Use Caffeine Use: Reports: Soda - Alcohol Use Alcohol Use History: No - Recreational Drug Use Recreational Drug Use: No H&P Review of Systems - Review of Systems: Review Of Systems: See Below Free Text/Narrative: A complete 12 point review of systems was obtained. Pertinent positives and negatives are noted in the history of present illness. All other systems were reviewed and were negative except as noted. Exam - Exam Exam: See Below - Vital Signs Vital Signs: Last Vital Signs Temp 36.5 C 11/05/18 08:00 Pulse 107 H 11/05/18 08:00 Resp 16 11/05/18 08:00 BP 109/75 11/05/18 08:00 Pulse Ox 100 11/05/18 08:00 Weight: 65.884 kg - Exam Quality Assessment: No: Supplemental Oxygen General: Alert, Oriented, Cooperative. No: Mild Distress HEENT: Conjunctiva Clear, Mucosa Moist & [place]. No: Scleral Icterus Neck: Supple, Trachea Midline. No: Lymphadenopathy Lungs: Normal Respiratory Effort, Crackles (left lung base) Cardiovascular: Regular Rhythm, Tachycardia GI/Abdominal Exam: Soft, No Distention Back Exam: Normal Inspection, Full Range of Motion Extremities: No Pedal Edema. No: Increased Warmth Skin: Warm, Dry Neuro Extensive - Mental Status: Alert, Oriented x3, Nl Response to Commands Neuro Extensive - Motor, Sensory, Reflexes: No: Dysarthria, Abnormal Motor, Tremor Psychiatric: Alert, Normal Affect - Patient Data Lab Results Last 24 hrs: Laboratory Results - last 24 hr 11/04/18 11/05/18 11/05/18 Range/Units 18:50 05:10 05:35 WBC 15.7 H (4.5-11.0) K/uL RBC 3.07 L (3.30-5.50) M/uL Hgb 10.5 L D (12.0-15.0) g/dL Hct 32.2 L (36.0-48.0) % MCV 105 H (80-98) fL MCH 34 H (27-31) pg MCHC 33 (32-36) % Plt Count 219 (150-400) K/uL Add Manual Diff Yes Neutrophils % (Manual) 80 H (36-66) % Band Neutrophils % 5 (5-11) % Lymphocytes % (Manual) 11 L (24-44) % Monocytes % (Manual) 4 (2-6) % Sodium 138 L (140-148) mmol/L Potassium 3.9 (3.6-5.2) mmol/L Chloride 104 (100-108) mmol/L Carbon Dioxide 28 (21-32) mmol/L Anion Gap 9.9 (5.0-14.0) mmol/L BUN 5 L (7-18) mg/dL Creatinine 0.5 L (0.6-1.0) mg/dL Est Cr Clr Drug Dosing 120.78 mL/min Estimated GFR (MDRD) > 60 (>60) Glucose 97 (74-106) mg/dL Calcium 8.7 (8.5-10.1) mg/dL Phosphorus 4.2 (2.5-4.9) mg/dL Magnesium 1.9 (1.8-2.4) mg/dL Ferritin 117 (8-388) ng/ml Total Bilirubin 0.3 (0.2-1.0) mg/dL AST 12 L (15-37) U/L ALT 19 (12-78) U/L Alkaline Phosphatase 79 (46-116) U/L Total Protein 5.6 L (6.4-8.2) g/dL Albumin 2.3 L (3.4-5.0) g/dL Globulin 3.3 (2.3-3.5) g/dL Albumin/Globulin Ratio 0.7 L (1.2-2.2) Amylase 35 (25-115) U/L Lipase 58 L (73-393) U/L Urine Color Yellow Urine Appearance Clear Urine pH 6.0 (4.5-8.0) Ur Specific [place] 1.005 L (1.008-1.030) Urine Protein Negative (NEGATIVE) mg/dL Urine Glucose (UA) Normal (NEGATIVE) mg/dL Urine Ketones Negative (NEGATIVE) mg/dL Urine Occult Blood Negative (NEGATIVE) Urine Nitrite Negative (NEGATIVE) Urine Bilirubin Negative (NEGATIVE) Urine Urobilinogen Normal (NORMAL) mg/dL Ur Leukocyte Esterase Negative (NEGATIVE) Urine RBC 0-5 (0-5) Urine WBC 0-5 (0-5) Ur Epithelial Cells Few Amorphous Sediment Rare Urine Bacteria Not seen Urine Mucus Numerous Result Diagrams: 11/05/18 05:10 11/05/18 05:35 Imaging Impressions Last 24 hrs: CXR - images personally reviewed - there is a retrocardiac infiltrate best seen on the lateral view consistent with pneumonia. No mass or effusion. Consult PN Assessment/Plan Procedures: Procedures ASSAY OF LIPASE (12/17/17) C DIFF AMPLIFIED PROBE (01/14/18) COMPLETE CBC AUTOMATED (12/17/17) COMPREHEN METABOLIC PANEL (12/17/17) CT ABD & PELV W/CONTRAST (01/14/18) EMERGENCY DEPT VISIT (12/17/17) HYDRATE IV INFUSION ADD-ON (12/17/17) ROUTINE VENIPUNCTURE (12/17/17) THER/PROPH/DIAG INJ IV PUSH (12/17/17) TX/PRO/DX INJ NEW DRUG ADDON (12/17/17) TX/PRO/DX INJ SAME DRUG DUST COLLECTOR ATTENDANT (12/17/17) (1) Left lower lobe pneumonia SNOMED Code(s): 324921981 Code(s): J18.1 - LOBAR PNEUMONIA, UNSPECIFIED ORGANISM Current Visit: Yes Qualifiers: Pneumonia type: due to unspecified organism Qualified Code(s): J18.1 - Lobar pneumonia, unspecified organism Problem List Initiated/Reviewed/Updated: Yes My Orders Last 24 Hours: My Active Orders 11/05/18 09:36 CULTURE RESPIRATORY + SMEAR [RM] Routine 11/06/18 09:00 Venlafaxine [Effexor XR] 75 mg PO DAILY Plan: ASSESSMENT AND RECOMMENDATIONS - Left lower lobe pneumonia - complicated by tachycardia. Sputum sample revealed gram-positive rods and a few gram positive cocci which is likely oral contamination. Heart rate has improved and temperatures better after broad- spectrum antibiotics were initiated last night. GI symptoms could be consistent with the left lower lobe pneumonia sitting close to the diaphragm. CT scan did mention the pneumonia and chest x-ray suggested it was worsening but patient is now on antibiotics. Clinical status seems to be improving since antibiotics were initiated. I believe this represents a community-acquired pneumonia and likely a post-influenza pneumonia and was present on admission. She is not currently hypoxic. -Levofloxacin should be adequate for monotherapy, would recommend seven-day course of antibiotics -Follow-up sputum culture Jayme Buchanan M.D. Requesting Provider: Dr Sánchez Date Consult Requested: 11/05/18 Reason for Consult: pneumonia Patient History Reviewed: Yes Admission H&P Reviewed: Yes Time Spent (in minutes): 45
[2018-11-05] MEDS ORDERED: Cyanocobalamin (Vitamin B12) 1,000 MCG/ML SDV IM ONE (11:00)
[2018-11-05] MEDS: Venlafaxine 75 MG Cap.ER PO SCH (12:54)
[2018-11-05] MEDS: Lactated Ringers 1,000 ML IV SCH (18:23)
[2018-11-05] MEDS: Levofloxacin/Dextrose 5%-Water 500 MG in Premix Bag 1 BAG IV SCH (21:03)
[2018-11-05] MEDS: ALPRAZolam 0.5 MG Tab PO SCH (21:05)
[2018-11-05] MEDS: HYDROmorphone 2 MG Tab PO PRN (22:15)
[2018-11-06] MEDS: Meropenem 500 MG in Sodium Chloride 0.9% 50 ML IV SCH ×4 (00:09→20:05)
[2018-11-06] MEDS: Codeine/guaiFENesin 100mg-10 MG/5 ML Syrup 10 ML Cup PO PRN ×5 (02:59→20:15)
[2018-11-06] MEDS: HYDROmorphone 2 MG Tab PO PRN ×6 (02:59→20:16)
[2018-11-06] MEDS: Lactated Ringers 1,000 ML IV SCH ×3 (03:05→20:02)
[2018-11-06] MEDS: Acetaminophen 325 MG Tab PO PRN ×3 (06:08→16:14)
[2018-11-06] MEDS: Morphine 2 MG/ML Syringe IVPUSH PRN ×2 (08:47→19:42)
[2018-11-06] MEDS ORDERED: Venlafaxine 75 MG Cap.ER PO SCH (09:00)
[2018-11-06] MEDS: Multivitamins with Iron Tab.Chew PO SCH (09:47)
[2018-11-06] MEDS: Venlafaxine 75 MG Cap.ER PO SCH (09:47)
[2018-11-06] MEDS: Pantoprazole 40 MG Vial IV SCH ×2 (09:48→20:09)
--- NOTE | 2018-11-06 11:18 | PCM.CONSN ---
- General Info Date of Service: 11/06/18 Subjective Update: There were no acute events overnight. Patient reports increased epigastric abdominal pain today after eating breakfast. Mild nausea but no vomiting. Bowel movements have been normal today. She has not had any fevers. She has not required supplemental oxygen. She does have a loose cough. Shortness of breath slowly getting better. Functional Status: Reports: Tolerating Diet. Denies: Pain Controlled - Review of Systems Gastrointestinal: Reports: Abdominal Pain - Patient Data Vitals - Most Recent: Last Vital Signs Temp 36.4 C 11/06/18 07:30 Pulse 104 H 11/06/18 07:30 Resp 16 11/06/18 07:30 BP 136/92 H 11/06/18 07:30 Pulse Ox 92 L 11/06/18 07:30 Weight - Most Recent: 65.884 kg I&O - Last 24 Hours: Intake & Output 11/05/18 11/06/18 11/06/18 22:59 06:59 14:59 Intake Total 1733 1760 Output Total 500 Balance 1233 1760 Lab Results Last 24 Hours: Laboratory Results - last 24 hr 11/06/18 Range/Units 04:28 WBC 14.7 H (4.5-11.0) K/uL RBC 3.12 L (3.30-5.50) M/uL Hgb 10.8 L (12.0-15.0) g/dL Hct 33.4 L (36.0-48.0) % MCV 107 H (80-98) fL MCH 35 H (27-31) pg MCHC 32 (32-36) % Plt Count (150-400) K/uL Rodo Results Last 24 Hours: Microbiology 11/05/18 09:36 Gram Stain - Final Sputum - Expectorated Respiratory Culture - Preliminary NORMAL RESPIRATORY JAY 1 DAY 11/04/18 18:50 Urine Culture - Preliminary Urine, Clean Catch NO GROWTH AFTER 1 DAY 11/04/18 18:50 Aerobic Blood Culture - Preliminary Blood - Venous - Lab Draw NO GROWTH AFTER 1 DAY Anaerobic Blood Culture - Preliminary NO GROWTH AFTER 1 DAY 11/04/18 18:50 Aerobic Blood Culture - Preliminary Blood - Venous NO GROWTH AFTER 1 DAY Anaerobic Blood Culture - Preliminary NO GROWTH AFTER 1 DAY 11/04/18 11:48 CLOtest - Final Stomach NEGATIVE CLOTEST Med Orders - Current: Current Medications Acetaminophen (Tylenol) 650 mg PO Q4H PRN PRN Reason: temp greater than 100.5 Last Admin: 11/06/18 06:08 Dose: 650 mg Alprazolam (Xanax) 2 mg PO BEDTIME [facility] Last Admin: 11/05/18 21:05 Dose: 2 mg Guaifenesin/Codeine Phosphate (Robitussin Ac) 10 ml PO Q4H PRN PRN Reason: Cough Last Admin: 11/06/18 07:27 Dose: 10 ml Hydromorphone HCl (Dilaudid) 2 mg PO Q3H PRN PRN Reason: Pain Last Admin: 11/06/18 09:48 Dose: 2 mg Lactated Ringer's (Ringers, Lactated) 1,000 mls @ 125 mls/hr IV ASDIRECTED [facility] Last Admin: 11/06/18 03:05 Dose: 125 mls/hr Levofloxacin/Dextrose 500 mg/ (Premix) 100 mls @ 100 mls/hr IV Q24H [facility] Last Admin: 11/05/18 21:03 Dose: 100 mls/hr Meropenem 500 mg/ Sodium (Chloride) 50 mls @ 100 mls/hr IV Q6H [facility] Last Admin: 11/06/18 06:06 Dose: 100 mls/hr Morphine Sulfate (Morphine) 1 mg IVPUSH Q2H PRN PRN Reason: Abdominal Pain Last Admin: 11/06/18 08:47 Dose: 1 mg Multivitamins/Iron (Child Chew Iron) 2 tab PO DAILY [facility] Last Admin: 11/06/18 09:47 Dose: 2 tab Naloxone HCl (Narcan) 0.1 mg IV ASDIRECTED PRN PRN Reason: decreased respiratory rate Ondansetron HCl (Zofran) 4 mg IVPUSH Q6H PRN PRN Reason: Nausea/Vomiting Pantoprazole Sodium (Protonix Iv) 40 mg IV Q12H [facility] Last Admin: 11/06/18 09:48 Dose: 40 mg Sodium Chloride (Saline Flush) 10 ml FLUSH ASDIRECTED PRN PRN Reason: Keep Vein Open Last Admin: 11/03/18 19:14 Dose: 10 ml Venlafaxine HCl (Effexor Xr) 150 mg PO DAILY [facility] Last Admin: 11/06/18 09:47 Dose: 150 mg Discontinued Medications Alprazolam (Xanax) 1 mg PO ONETIME ONE Stop: 11/03/18 23:16 Last Admin: 11/04/18 00:01 Dose: 1 mg Alprazolam (Xanax) 1 mg PO BEDTIME [facility] Alprazolam (Xanax) 1 mg PO NOW ONE Stop: 11/03/18 23:38 Last Admin: 11/04/18 00:01 Dose: 1 mg Cyanocobalamin (Vitamin B12) 1,000 mcg IM ONETIME ONE Stop: 11/05/18 11:01 Last Admin: 11/05/18 12:56 Dose: 1,000 mcg Fentanyl (Sublimaze) 100 mcg IVPUSH ONETIME ONE Stop: 11/03/18 20:06 Last Admin: 11/03/18 20:11 Dose: 100 mcg Fentanyl (Sublimaze) 50 mcg IVPUSH Q6H PRN PRN Reason: Pain (severe 7-10) Fentanyl (Sublimaze) 50 mcg IVPUSH Q1H PRN PRN Reason: Pain (severe 7-10) Last Admin: 11/04/18 06:30 Dose: 50 mcg Fentanyl (Sublimaze) Confirm Administered Dose 100 mcg .ROUTE .STK-MED ONE Stop: 11/04/18 10:56 Glycopyrrolate (Glycopyrrolate) 0.4 mg IVPUSH ONCALL ONE Stop: 11/04/18 09:16 Last Admin: 11/04/18 15:12 Dose: Not Given Hydromorphone HCl (Dilaudid) 0.5 mg IVPUSH ONETIME ONE Stop: 11/03/18 18:33 Last Admin: 11/03/18 18:45 Dose: 0.5 mg Lactated Ringer's (Ringers, Lactated) 1,000 mls @ 500 mls/hr IV ASDIRECTED [facility] Last Admin: 11/03/18 18:45 Dose: 500 mls/hr Sodium Chloride (Normal Saline) 80 mls @ 3 mls/sec IV ASDIRECTED [facility] Last Admin: 11/03/18 19:14 Dose: 3 mls/sec Pantoprazole Sodium 40 mg/ (Sodium Chloride) 100 mls @ 200 mls/hr IV BID [facility] Acetaminophen 1,000 mg/ Premix 100 mls @ 400 mls/hr IV Q6H PRN PRN Reason: Pain Stop: 11/05/18 17:49 Last Admin: 11/04/18 18:06 Dose: 400 mls/hr Iopamidol (Isovue-300 (61%)) 100 ml IV . DIRECTED [facility] Last Admin: 11/03/18 19:14 Dose: 100 ml Metoclopramide HCl (Reglan) 10 mg IVPUSH ONETIME ONE Stop: 11/03/18 19:00 Last Admin: 11/03/18 19:04 Dose: 10 mg Midazolam HCl (Versed 1 Mg/Ml) Confirm Administered Dose 2 mg .ROUTE .STK-MED ONE Stop: 11/04/18 10:56 Morphine Sulfate (Morphine Daub Color Mixer 150 Mg In 30 Ml) 0 mg IV ASDIRECTED PRN; Protocol PRN Reason: Pain Last Admin: 11/04/18 13:27 Dose: 150 mg Non-Formulary Medication (Alprazolam [Xanax]) 1 mg PO BEDTIME [facility] Last Admin: 11/03/18 23:20 Dose: Not Given Pantoprazole Sodium (Protonix Iv) 80 mg IVPUSH .BOLUS [facility] Last Admin: 11/03/18 20:41 Dose: 80 mg Propofol (Diprivan 20 Ml) Confirm Administered Dose 200 mg .ROUTE .STK-MED ONE Stop: 11/04/18 10:56 Venlafaxine HCl (Effexor Xr) 75 mg PO DAILY [facility] - Exam Quality Assessment: No: Supplemental Oxygen General: Alert, Oriented, Cooperative, No Acute Distress Lungs: Normal Respiratory Effort, Crackles (few left lung base) Cardiovascular: Regular Rate, Regular Rhythm GI/Abdominal Exam: Soft, No Distention Extremities: No Pedal Edema Psy/Mental Status: Alert, Normal Affect Consult PN Assessment/Plan Procedures: Procedures ASSAY OF LIPASE (12/17/17) C DIFF AMPLIFIED PROBE (01/14/18) COMPLETE CBC AUTOMATED (12/17/17) COMPREHEN METABOLIC PANEL (12/17/17) CT ABD & PELV W/CONTRAST (01/14/18) EMERGENCY DEPT VISIT (12/17/17) HYDRATE IV INFUSION ADD-ON (12/17/17) ROUTINE VENIPUNCTURE (12/17/17) THER/PROPH/DIAG INJ IV PUSH (12/17/17) TX/PRO/DX INJ NEW DRUG ADDON (12/17/17) TX/PRO/DX INJ SAME DRUG RANCH MANAGER (12/17/17) (1) Left lower lobe pneumonia SNOMED Code(s): 236556837 Code(s): J18.1 - LOBAR PNEUMONIA, UNSPECIFIED ORGANISM Current Visit: Yes Qualifiers: Pneumonia type: due to unspecified organism Qualified Code(s): J18.1 - Lobar pneumonia, unspecified organism Problem List Initiated/Reviewed/Updated: Yes My Orders Last 24 Hours: My Active Orders 11/05/18 13:00 Venlafaxine [Effexor XR] 150 mg PO DAILY Plan: ASSESSMENT AND RECOMMENDATIONS - Left lower lobe pneumonia - steadily improving. No fevers and no supplemental oxygen requirement. Sputum culture is pending but no concerning organisms were seen on the Gram stain. She does still get a little bit tachycardic when she is up and moving around but otherwise has been very stable. -Levofloxacin should be adequate for monotherapy, would recommend seven-day course of antibiotics (unless cultures dictate otherwise) -Follow-up sputum culture Pneumonia seems to be well treated at this time. The hospitalist service will sign off but please feel free to consult if there are additional difficulties. Jayme Buchanan M.D.
--- NOTE | 2018-11-06 12:09 | PN ---
DATE OF SERVICE: 11/06/2018 The patient has now been afebrile. Still she has had the low-grade tachycardia in the 100 to 110 range, but has been feeling better systemically. She continues to have some abdominal bloating and on examination does have some fullness and discomfort in the left upper mid abdomen consistent with a partial small bowel obstruction at that level and she is being treated for pneumonia at present with Gram stain on the sputum and gram positive rods and gram positive cocci, and I think we will leave her on the meropenem and Levaquin given that mixed josephine and she is improving on the antibiotics, and it is not clear which of those that is responsible for the improvement. The tentative plan at this point would be treat with laparoscopy, possible laparotomy on Wednesday in less than 48 hours after treatment of the pneumonia. Otherwise, continue the antibiotics and maximize activity, work with pulmonary toilet. We will recheck some labs tomorrow morning. Of note, her white count does remain somewhat elevated at 14,000 today. Joseph Sánchez MD /[id number]
[2018-11-06] MEDS: ALPRAZolam 0.5 MG Tab PO SCH (20:08)
[2018-11-06] MEDS: Levofloxacin/Dextrose 5%-Water 500 MG in Premix Bag 1 BAG IV SCH (21:23)
[2018-11-07] MEDS: Codeine/guaiFENesin 100mg-10 MG/5 ML Syrup 10 ML Cup PO PRN ×2 (00:22→07:44)
[2018-11-07] MEDS: Meropenem 500 MG in Sodium Chloride 0.9% 50 ML IV SCH ×4 (00:22→20:21)
[2018-11-07] MEDS: HYDROmorphone 2 MG Tab PO PRN ×3 (00:23→07:44)
[2018-11-07] MEDS: Lactated Ringers 1,000 ML IV SCH (06:04)
[2018-11-07] MEDS ORDERED: Lactated Ringers 1,000 ML IV SCH (07:41)
[2018-11-07] MEDS ORDERED: Tap Block 1 ML BAG NERVRT ONE (08:00)
[2018-11-07] MEDS: Albuterol/Ipratropium 3.0-0.5 MG/3 ML Neb Soln NEB SCH ×3 (08:06→20:37)
[2018-11-07] MEDS ORDERED: Naloxone 0.4 MG/ML SDV IV PRN (08:34)
--- NOTE | 2018-11-07 09:46 | PN ---
DATE OF SERVICE: 11/05/2018 The patient had developed a fever up to 101 last night and was also tachycardiac up into the 140s range. This morning, this has improved, she has defervesced, and heart rate is right around 100. The chest x-ray this morning did show now a well-defined pneumonia in the left lower lobe. She was empirically started on meropenem and Levaquin last night. Blood cultures and urine cultures were obtained. We were not able to obtain sputum culture. We will consult Dr. Buchanan regarding the pneumonia. It is unclear why the patient would develop this, as she is otherwise a fairly young healthy person. She did take the liquid diet in well yesterday without any resumption of the cramping pain that she has been talking about, and we will start a step 4 diet today, consult Dr. Buchanan, and continue the present antibiotics. Joseph Sánchez MD /[id number]
[2018-11-07] MEDS: Multivitamins with Iron Tab.Chew PO SCH (10:00)
[2018-11-07] MEDS: Venlafaxine 75 MG Cap.ER PO SCH (10:01)
[2018-11-07] MEDS: Pantoprazole 40 MG Vial IV SCH ×2 (10:01→20:40)
[2018-11-07] MEDS: Morphine PF 150 MG/30 ML PCA Syringe IV PRN (10:02)
--- NOTE | 2018-11-07 10:38 | PN ---
DATE OF SERVICE: 11/07/2018 SUBJECTIVE: Amy has left lower lobe pneumonia. She continues to have a productive cough. She will be scheduled for surgery tomorrow. Continues to have severe postprandial abdominal pain. Vital signs have been stable. She has been afebrile. Oral intake 2200, urine output 6000, has had 100% of breakfast, 75% of lunch and dinner. REVIEW OF SYSTEMS: Remainder of review of systems negative for any pertinent positives and negatives. OBJECTIVE: GENERAL: Amy Meza is a 38-year-old female. She is alert and orientated. VITAL SIGNS: TPR 97.1, 99, 18, blood pressure 133/94. HEENT: Negative. NECK: Supple. HEART: Regular rate and rhythm. LUNGS: Clear. ABDOMEN: Negative for any tenderness. It is soft, nondistended. EXTREMITIES: Without peripheral edema. ASSESSMENT: 1. Left lower lobe pneumonia. 2. Postprandial abdominal pain. 3. Partial small bowel obstruction. 4. SP Gilson-en-Y gastric bypass surgery. 5. Unspecified surgical malabsorption. 6. B12 deficiency. PLAN: Schedule and have consent signed for exploratory laparoscopy; possible open for release of partial small bowel obstruction, possible lysis of adhesion and possible small bowel resection for partial small bowel obstruction. General anesthesia, tap block, n.p.o. after midnight. Surgeon, Joseph Sánchez MD; date of surgery 11/08/2018. Case to follow. DuoNeb q.6 hours. 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 or in a.m. Tomasa Cadena PA-C /[id number]
[2018-11-07] MEDS: ALPRAZolam 0.5 MG Tab PO SCH (20:37)
[2018-11-07] MEDS: Levofloxacin/Dextrose 5%-Water 500 MG in Premix Bag 1 BAG IV SCH (21:04)
[2018-11-08] MEDS: Meropenem 500 MG in Sodium Chloride 0.9% 50 ML IV SCH ×4 (01:54→19:15)
[2018-11-08] MEDS: Albuterol/Ipratropium 3.0-0.5 MG/3 ML Neb Soln NEB SCH ×2 (01:54→08:14)
[2018-11-08] MEDS ORDERED: Bupivacaine 0.5%/EPINEPHrine 1:200,000 50 ML MDV ONE (06:47)
[2018-11-08] MEDS ORDERED: Propofol 200 MG/20 ML SDV ONE (07:20)
[2018-11-08] MEDS ORDERED: Glycopyrrolate 0.2 MG/ML 5 ML MDV ONE (07:20)
[2018-11-08] MEDS ORDERED: Succinylcholine 200 MG/10 ML MDV ONE (07:20)
[2018-11-08] MEDS ORDERED: Dexamethasone 4 MG/ML SDV ONE (07:20)
[2018-11-08] MEDS ORDERED: Ondansetron 4 MG/2 ML SDV ONE (07:20)
[2018-11-08] MEDS ORDERED: Neostigmine Methylsulfate 1 MG/ML 5 ML Syringe ONE (07:20)
[2018-11-08] MEDS ORDERED: fentaNYL 250 MCG/5 ML SDV ONE (07:20)
[2018-11-08] MEDS ORDERED: Rocuronium 50 MG/5 ML Vial ONE ×2 (07:20→10:49)
[2018-11-08] MEDS ORDERED: Meropenem 500 MG SDV ONE (07:51)
[2018-11-08] MEDS: Pantoprazole 40 MG Vial IV SCH (08:53)
[2018-11-08] MEDS ORDERED: Pantoprazole 40 MG Vial IVPUSH SCH (09:00)
[2018-11-08] MEDS ORDERED: Lactated Ringers 1,000 ML ONE (10:05)
[2018-11-08] MEDS ORDERED: Ropivacaine 33 ML, Dexamethasone 8 MG, EPINEPHrine 0.4 MG, Sodium Chloride 0.9% 44.6 ML NERVRT SCH ×4 (11:00)
[2018-11-08] MEDS: Multivitamins with Iron Tab.Chew PO SCH (11:16)
[2018-11-08] MEDS: Venlafaxine 75 MG Cap.ER PO SCH (11:17)
[2018-11-08] MEDS ORDERED: fentaNYL 100 MCG/2 ML SDV ONE (11:22)
[2018-11-08] MEDS ORDERED: Metoclopramide 10 MG/2 ML SDV IVPUSH PRN (12:55)
[2018-11-08] MEDS ORDERED: Labetalol 20 MG/4 ML Syringe IVPUSH PRN (12:55)
[2018-11-08] MEDS ORDERED: Ondansetron 4 MG/2 ML SDV IVPUSH PRN (12:55)
[2018-11-08] MEDS ORDERED: diphenhydrAMINE 50 MG/ML SDV IVPUSH PRN (12:55)
[2018-11-08] MEDS ORDERED: Albuterol/Ipratropium 3.0-0.5 MG/3 ML Neb Soln INH PRN (12:55)
[2018-11-08] MEDS: Dextrose 5%-Lactated Ringers 1,000 ML IV SCH ×2 (13:54→23:07)
[2018-11-08] MEDS: Acetaminophen 325 MG Tab PO SCH ×2 (13:55→19:15)
[2018-11-08] MEDS: Albuterol/Ipratropium 3.0-0.5 MG/3 ML Neb Soln INH SCH ×2 (14:27→21:25)
[2018-11-08] MEDS: MVI, Adult with Vitamin K 10 ML, Thiamine 200 MG, Chromium/Copper/Mang/Selen/Zn 1 ML in... IV SCH ×4 (15:31)
[2018-11-08] MEDS: hydrOXYzine HCl 100 MG/2 ML SDV IM PRN (15:57)
[2018-11-08] MEDS: Heparin Sodium 5,000 Units/ML Vial SUBCUT SCH (19:15)
[2018-11-08] MEDS: Levofloxacin/Dextrose 5%-Water 500 MG in Premix Bag 1 BAG IV SCH (19:58)
[2018-11-09] MEDS: Meropenem 500 MG in Sodium Chloride 0.9% 50 ML IV SCH ×4 (00:28→18:28)
[2018-11-09] MEDS: Acetaminophen 325 MG Tab PO SCH ×4 (02:09→20:47)
[2018-11-09] MEDS ORDERED: Iohexol 647 MG/ML 50 ML SDV PO STA (03:16)
--- NOTE | 2018-11-09 03:59 | CRLCR ---
INDICATION: Revision of Gilson-en-Y TECHNIQUE: Abdomen modified upper GI. COMPARISON: 01/14/2018 FINDINGS: Bowel: Oral contrast identified in the distal jejunal and proximal ileal bowel loops. Soft tissues: No sign of free air. No sign of soft tissue mass. No suspicious calcifications. Bones: Unremarkable for age. IMPRESSION: Oral contrast transits into the distal jejunal and proximal ileal bowel loops. No evidence of leakage. Dictated by Senthil Villegas MD @ Nov 09 2018 3:57AM Signed by Dr. Senthil Villegas @ Nov 09 2018 3:57AM
[2018-11-09] MEDS: Dextrose 5%-Lactated Ringers 1,000 ML IV SCH (05:13)
[2018-11-09] MEDS: Albuterol/Ipratropium 3.0-0.5 MG/3 ML Neb Soln INH SCH ×4 (07:12→22:46)
[2018-11-09] MEDS ORDERED: Dextrose 5%-Lactated Ringers 1,000 ML IV SCH (07:19)
[2018-11-09] MEDS: Heparin Sodium 5,000 Units/ML Vial SUBCUT SCH ×2 (08:01→20:47)
[2018-11-09] MEDS ORDERED: Pantoprazole 40 MG Vial IVPUSH SCH (09:00)
--- NOTE | 2018-11-09 09:03 | PN ---
DATE OF SERVICE: 11/09/2018 SUBJECTIVE: Amy is postoperative day 1. Her pain is controlled, it remains to be between 6 and 8. She is on meropenem and Levaquin for left lower lobe pneumonia. Lungs have improved. Upper GI this morning was normal. REVIEW OF SYSTEMS: Remainder of review of systems negative for any pertinent positives or negatives. Vital signs stable. Oral intake 1320. Urine output 6000. Bhatt was removed yesterday. OBJECTIVE: GENERAL: Amy is a 38-year-old female. She is alert, orientated, walking around the room. VITAL SIGNS: TPR 98.2, 110, 16, blood pressure 143/88. HEENT: Negative. NECK: Supple. HEART: Regular rate and rhythm. LUNGS: Clear. ABDOMEN: Dressings dry and intact. Abdominal binder is on. EXTREMITIES: Without peripheral edema. SCDs have been on while she is in bed. ASSESSMENT: 1. Left lower lobe pneumonia, resolving. 2. Diagnostic laparoscopy turned to laparotomy with lysis of extensive adhesions: a. Revision of jejunojejunostomy component of the Gilson-en-Y gastric bypass. b. Repair of recurrent incarcerated incisional hernia. c. Placement of Interceed mesh for partial small bowel obstruction at the jejunojejunostomy and recurrent incarcerated incisional hernia and extensive intraabdominal adhesions. Date of surgery 11/08/2018. PLAN: 1. Step 2 gastric bypass diet with serial double portions. 2. Decrease IV to 60 mL per hour. 3. Good pulmonary toilet. 4. We will evaluate p.r.n. or in a.m. Tomasa Cadena PA-C /[id number]
[2018-11-09] MEDS: Multivitamins with Iron Tab.Chew PO SCH (09:42)
[2018-11-09] MEDS: Morphine PF 150 MG/30 ML PCA Syringe IV PRN (12:24)
[2018-11-09] MEDS: Venlafaxine 75 MG Cap.ER PO SCH (13:44)
--- NOTE | 2018-11-09 14:42 | PN ---
DATE OF SERVICE: 11/08/2018 The patient has been afebrile with stable vital signs. Heart rate is still slightly above 100, but clinically she looks quite stable and we will plan to proceed with the laparoscopy and laparotomy if necessary, and release of partial bowel obstruction later this morning. Joseph Sánchez MD /[id number]
[2018-11-09] MEDS: hydrOXYzine HCl 100 MG/2 ML SDV IM PRN (16:20)
[2018-11-09] MEDS: MVI, Adult with Vitamin K 10 ML, Thiamine 200 MG, Chromium/Copper/Mang/Selen/Zn 1 ML in... IV SCH ×4 (17:13)
[2018-11-09] MEDS: Levofloxacin/Dextrose 5%-Water 500 MG in Premix Bag 1 BAG IV SCH (20:39)
[2018-11-09] MEDS: ALPRAZolam 0.5 MG Tab PO PRN (22:50)
[2018-11-10] MEDS: Meropenem 500 MG in Sodium Chloride 0.9% 50 ML IV SCH ×4 (01:40→19:28)
[2018-11-10] MEDS: Acetaminophen 325 MG Tab PO SCH (01:43)
[2018-11-10] MEDS ORDERED: Acetaminophen 325 MG Tab PO PRN (07:11)
[2018-11-10] MEDS ORDERED: Ondansetron 4 MG Tab.DIS PO PRN (07:15)
[2018-11-10] MEDS: Albuterol/Ipratropium 3.0-0.5 MG/3 ML Neb Soln INH SCH ×4 (07:26→20:13)
[2018-11-10] MEDS ORDERED: Sodium Chloride 0.9% 250 ML IV SCH (08:00)
[2018-11-10] MEDS: Bisacodyl 5 MG Tab PO SCH ×2 (08:04→20:19)
[2018-11-10] MEDS: Pantoprazole 40 MG Tab.CR PO SCH ×2 (08:04→16:14)
[2018-11-10] MEDS: Acetaminophen/HYDROcodone 325-5 MG Tab PO PRN ×4 (08:04→20:12)
[2018-11-10] MEDS: Heparin Sodium 5,000 Units/ML Vial SUBCUT SCH ×2 (08:05→20:21)
[2018-11-10] MEDS: Venlafaxine 75 MG Cap.ER PO SCH (08:07)
[2018-11-10] MEDS: Multivitamins with Iron Tab.Chew PO SCH (08:07)
--- NOTE | 2018-11-10 08:31 | PN ---
DATE OF SERVICE: 11/10/2018 SUBJECTIVE: Amy has been up ambulating. Vital signs have been stable. Pain has been controlled with the morphine pump. Oral intake 3960, urine output 6200. She has passed flatus twice. She has not had a bowel movement. REVIEW OF SYSTEMS: Remainder of review of systems negative for any pertinent positives and negatives. OBJECTIVE: GENERAL: Amy Meza is a 38-year-old female, alert and orientated. VITAL SIGNS: TPR 96.9, 97, 16. Blood pressure 144/91. HEENT: Negative. NECK: Supple. HEART: Regular rate and rhythm. LUNGS: Clear. ABDOMEN: Dressings is dry and intact. Abdominal binder is on. EXTREMITIES: Without peripheral edema. ASSESSMENT: 1. Left lower lobe pneumonia, resolving. 2. Diagnostic laparoscopy, turned to laparotomy with lysis of extensive adhesions. a. Revision of jejunojejunostomy component of the Gilson-en-Y gastric bypass. b. Repair of recurrent incarcerated incisional hernia. c. Placement of Interceed mesh for partial small bowel obstruction at the jejunojejunostomy and recurrent incarcerated incisional hernia and extensive intraabdominal adhesions. Date of surgery 11/08/2018. PLAN: 1. 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 Continue pulse ox. 2. [place] 5/325 mg one tablet for pain score of 4-6 and two tablets for pain score of greater 7, give orally every 4 hours as needed. 3. Zofran ODT 4 mg sublingual q.4 hours p.r.n. nausea. 4. Discontinue IV Protonix. 5. Protonix 40 mg p.o. b.i.d. 6. Tylenol 500 mg q.6 hours p.r.n. lesser pain. 7. Discontinue Benadryl IV. 8. Dulcolax tablets 10 mg p.o. b.i.d. 9. Senna Plus 2 tabs p.o. at bedtime. 10.Work on incentive spirometer 10 times every hour while awake. 11.We will evaluate p.r.n. or in a.m. Tomasa Cadena PA-C /[id number]
[2018-11-10] MEDS ORDERED: Cyanocobalamin (Vitamin B12) 1,000 MCG/ML SDV IM ONE (09:00)
--- NOTE | 2018-11-10 09:13 | OR ---
DATE OF PROCEDURE: 11/04/2018 PREOPERATIVE DIAGNOSIS: Postprandial abdominal pain. POSTOPERATIVE DIAGNOSIS: Postprandial abdominal pain associated with normal upper GI endoscopic examination, status post Gilson-en-Y gastric bypass. OPERATIVE PROCEDURE: Upper GI endoscopy with biopsy of gastric pouch for CLOtest. ANESTHESIA: IV sedation. INDICATION FOR PROCEDURE: This is a 38-year-old presenting with postprandial abdominal pain that has been present at least for around 2 months. The plan is to proceed initially with an upper GI endoscopy with biopsies and/or dilation as indicated. Potential risks of the procedure including bleeding and perforation were discussed, and the patient wishes to proceed. DETAILS OF PROCEDURE: The patient was taken to the operating room and placed in a left lateral decubitus position. IV sedation was administered, after which the upper GI endoscope was passed orally through the length of the esophagus into the gastric pouch and from there through the gastrojejunostomy roughly 20 cm into the Gilson limb. Findings overall were entirely normal with no areas of stricturing, no areas of inflammation, and no blood or bleeding. A biopsy was obtained from the gastric pouch and sent for CLOtest for H. pylori. Minimal bleeding from the biopsy site was seen and the procedure was then concluded. At this point, the patient most likely has a partial small bowel obstruction, based on her postprandial abdominal pain symptoms. We will discuss this further with her over the next day or so. Joseph Sánchez MD /[id number]
--- NOTE | 2018-11-10 09:51 | OR ---
DATE OF PROCEDURE: 11/08/2018 PREOPERATIVE DIAGNOSIS: Partial small-bowel obstruction. POSTOPERATIVE DIAGNOSES: 1. Partial small-bowel obstruction. 2. Incarcerated recurrent incisional hernia. 3. Extensive intraabdominal adhesions. OPERATIVE PROCEDURES: Diagnostic laparoscopy converted to laparotomy with lysis of extensive adhesions: 1. Revision of jejunojejunostomy component of Gilson-en-Y gastric bypass (66838). 2. Repair of recurrent incarcerated incisional hernia (21441). 3. Placement of Interceed mesh to displace pelvic and abdominal wall from underlying viscera to limit recurrent adhesion formation (46298). ANESTHESIA: General. INDICATIONS FOR PROCEDURE: This is a 38-year-old female, presenting with symptoms compatible with partial small-bowel obstruction. Plan is to proceed with a diagnostic laparoscopy, laparotomy if necessary, and release of the bowel obstruction with possible bowel resection. Potential risks of the procedure including bleeding, infection, injury to underlying viscera, possible infection of the mesh that had been used for previous incisional hernia repair were all gone over as well as possibility of recurrent symptoms over time, and the patient wishes to proceed. DETAILS OF PROCEDURE: The patient was taken to the operating room and placed in a supine position. After general endotracheal anesthesia was induced, she was converted to a lithotomy position and a Bhatt catheter inserted. The abdomen was then prepped and draped. In the left lower quadrant, transverse incision was made and peritoneal cavity entered under direct vision with an Optiview trocar inflated to 15 mmHg pressure of CO2. Laparoscope was then reinserted. No underlying trocar insertion site injuries were seen. Following this, initially 5 mm trocars were placed, one on the right side and one on the left mid abdomen and some adhesions between the omentum and the anterior abdominal wall were taken down. The patient then was noted to have an intact mesh in the midepigastrium, but below did have an incarcerated hernia in the incision below where the previously-placed mesh was located. This contained some incarcerated omentum within it which was taken down. At this point, the small bowel was then traced from the gastrojejunostomy downward to the jejunojejunostomy. At that level, that anastomosis was noted to be strikingly dilated and angulated. It was felt best at this point that we would convert to an open approach to facilitate more precise revision of that anastomosis along with a satisfactory mesenteric closure. At this point, the trocars were removed and peritoneal cavity inflated. The incision was then made in the midline at the point below the previously placed mesh. This included the recurrent area of incisional hernia. This allowed mobilization of the jejunojejunostomy upward. The small bowel was then run in terms of the biliopancreatic limb proximally and then distally the entire length of the common limb was traced out with no additional pathology being seen. Repair of the jejunojejunostomy was partially obstructed either due to angulation related to the components entering and exiting the anastomosis or chronic intussusception. At this point, the Gilson limb was divided off, flushed with the jejunojejunostomy and then this was measured out to be around 80 cm. The remaining component of that anastomosis appeared to be satisfactory, and this would only be carrying the biliopancreatic secretions. The new jejunojejunostomy was then revised roughly 20 cm further distally. The patient had bountiful amount of small bowel distal we were not encroaching on any sort of problems with too short bowel lengths. Distal anastomosis was accomplished with internal firing of the TAISHA 60 mm kruse load followed by 30 mm kruse load and the common opening then closed transversely with purple load. Angles of anastomosis were then reinforced with some 3-0 Vicryl stitch. The mesenteric defect was then closed with a running 2-0 silk stitch to provide some permanency. At this point, the abdomen was irrigated with antibiotic-containing saline solution. No problems were noted at this point. The drain was felt not to be necessary. The area of the herniation was initially repaired with a running #2 Vicryl stitch to limit recurrent adhesion formations between the pelvic and abdominal wall. Interceed mesh was then placed along those surfaces, displacing the viscera away from those surfaces. The incision was then closed rest of the way with #2 Vicryl stitch at the fascia level and subcutaneous tissue was approximated with two layers of 3-0 Vicryl stitch deep and the skin with sierra. Dressing was applied. The patient was taken to the recovery room in satisfactory condition. Joseph Sánchez MD /[id number]
[2018-11-10] MEDS: Acetaminophen 500 MG Tab PO PRN (11:29)
[2018-11-10] MEDS: MVI, Adult with Vitamin K 10 ML, Thiamine 200 MG, Chromium/Copper/Mang/Selen/Zn 1 ML in... IV SCH ×4 (15:21)
[2018-11-10] MEDS: hydrOXYzine HCl 100 MG/2 ML SDV IM PRN (15:21)
[2018-11-10] MEDS: Levofloxacin/Dextrose 5%-Water 500 MG in Premix Bag 1 BAG IV SCH (20:13)
[2018-11-10] MEDS: ALPRAZolam 0.5 MG Tab PO PRN (21:26)
[2018-11-11] MEDS: Acetaminophen/HYDROcodone 325-5 MG Tab PO PRN ×2 (00:51→06:01)
[2018-11-11] MEDS: Meropenem 500 MG in Sodium Chloride 0.9% 50 ML IV SCH ×2 (00:51→07:23)
[2018-11-11] MEDS: Albuterol/Ipratropium 3.0-0.5 MG/3 ML Neb Soln INH SCH (07:17)
[2018-11-11] MEDS: Heparin Sodium 5,000 Units/ML Vial SUBCUT SCH (07:26)
[2018-11-11] MEDS: Pantoprazole 40 MG Tab.CR PO SCH (07:26)
[2018-11-11] MEDS: Venlafaxine 75 MG Cap.ER PO SCH (08:12)
[2018-11-11] MEDS: Multivitamins with Iron Tab.Chew PO SCH (08:12)
[2018-11-11] MEDS: Acetaminophen 500 MG Tab PO PRN (08:52)
[2018-11-11] MEDS ORDERED: Ciprofloxacin 500 MG Tab PO SCH (09:00)
--- NOTE | 2018-11-11 12:33 | DISCH ---
ADMISSION DIAGNOSES: 1. Midepigastric abdominal pain. 2. Nausea. 3. Status post Gilson-en-Y gastric bypass surgery. 4. Unspecified surgical malabsorption. 5. Vitamin D deficiency. 6. Vitamin B deficiency. DISCHARGE DIAGNOSES: 1. Diagnostic laparoscopy converted to laparotomy with lysis of extensive adhesions: a. Revision the jejunojejunostomy component of the Gilson-en-Y gastric bypass. b. Repair of recurrent incarcerated incisional hernia. c. Placement of Interceed mesh to displace pelvic and abdominal wall from underlining viscera to limit recurrent adhesive formation for partial small bowel obstruction, incarcerated recurrent incisional hernia, and extensive intraabdominal adhesions. 2. Upper gastrointestinal endoscopy with biopsy of gastric pouch for CLOtest, postprandial abdominal pain associated with normal upper gastrointestinal endoscopy exam, status post Gilson-en-Y gastric bypass. Date of procedure: 11/04/2018. Surgeon: Joseph Sánchez MD. 3. Left lower lobe pneumonia. HISTORY: Amy was admitted to the hospital on 11/03/2018 for midepigastric abdominal pain and nausea. On 11/05/2018, she had an upper GI endoscopy which showed normal upper GI. She had the upper GI, which findings were entirely normal with no areas of stricturing nor areas of inflammation and no blood or bleeding. On 11/05/2018, she developed a fever of 101 with tachycardia in the 140s. A chest x-ray showed well-defined pneumonia in the left lower lobe. She was put on meropenem and Levaquin IV. Blood cultures and urine cultures were obtained. She remained on the liquid diet and continued to have postprandial abdominal pain. On 11/06/2018, her temperature was low grade. She continued to have some abdominal bloating and fullness after eating. The Gram stain showed positive rods and gram-negative cocci. On 11/07/2018, Amy continued with the treatment of the left lower lobe pneumonia and she continued to have severe postprandial abdominal pain. On 11/08/2018, she had her operative procedure. On 11/09/2018, she was started on a step 2 diet without cereal. Her IV was decreased. 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 She was started on oral pain medication and bowel stimulation. Later in the afternoon, she did start having bowel movements. On 11/11/2018, she was able to be discharged to home without any complications. OBJECTIVE: GENERAL: Amy Meza is a 38-year-old female. VITAL SIGNS: Height is 5 feet 1.81 inches, weight is 145 pounds. TPR is 97.7, 88, 16, blood pressure 122/85. HEENT: Negative. NECK: Supple. HEART: Regular rate and rhythm. LUNGS: Clear. ABDOMEN: Aquacel dressing is on. It will be removed by nursing staff prior to discharge. Abdominal binder is on. EXTREMITIES: Without peripheral edema. DISPOSITION: Discharged to home. CONDITION: Stable and improving. FOLLOWUP APPOINTMENT: Tomasa Cadena PA-C, on 11/17/2018 at 10 a.m. NEW PRESCRIPTIONS: 1. Tylenol 500 mg q.6 hours p.r.n. pain. 2. [place] 5/325 mg 1 to 2 tablets every 6 hours p.r.n. pain #50. 3. Cipro 500 mg b.i.d. #14. She is to resume her home medications: 1. Xanax 2 mg at bedtime. 2. Vitamin D3 5000 International Units daily. 3. B12 1000 mcg sublingual daily. 4. Multivitamin Complete one twice daily. 5. Venlafaxine 150 mg oral daily. 6. Vitamin B complex one daily. DISCHARGE DIET: Step 3 gastric bypass diet. Drink 8 to 10 glasses of water a day. ACTIVITY: No lifting greater than 10 pounds for 6 weeks. Other activity: Walk at least 6 times daily. Driving: Do not drive for one week. Shower/bathing: May shower. DISCHARGE INSTRUCTIONS: Notify provider if any fever, increased pain, nausea, or vomiting. Keep site clean and dry. Wear abdominal binder for 6 weeks and then as tolerated. SPECIAL INSTRUCTIONS: Use incentive spirometer 10 times every hour while awake for 1 week.
== END 2018-11-11 09:26 | disposition home or self-care (01) | DRG 329 ==
LOC: JP.ED 16:08 → JP.MS 20:21 → OBSVTOIN 11-05 08:00
PROVIDERS: ADMIT Surgery; ATTEND Surgery
PROC: 0DB78ZX Excision of Stomach, Pylorus, Via Natural or Artificial Opening Endoscopic, Diagnostic (ICD-10-PCS; 2018-11-04)
PROC: 0DBA0ZZ Excision of Jejunum, Open Approach (ICD-10-PCS; principal; 2018-11-08)
PROC: 0DJW4ZZ Inspection of Peritoneum, Percutaneous Endoscopic Approach (ICD-10-PCS; 2018-11-08)
PROC: 0WQF0ZZ Repair Abdominal Wall, Open Approach (ICD-10-PCS; 2018-11-08)
PROC: 0DNW0ZZ Release Peritoneum, Open Approach (ICD-10-PCS; 2018-11-08)
PROC: 3E0M05Z Introduction of Adhesion Barrier into Peritoneal Cavity, Open Approach (ICD-10-PCS; 2018-11-08)
DX: K56.51 Intestinal adhesions [bands], with partial obstruction (principal); J18.1 Lobar pneumonia, unspecified organism; K43.0 Incisional hernia with obstruction, without gangrene; K91.2 Postsurgical malabsorption, not elsewhere classified; Z53.31 Laparoscopic surgical procedure converted to open procedure; K59.8 Other specified functional intestinal disorders; R10.10 Upper abdominal pain, unspecified; F17.210 Nicotine dependence, cigarettes, uncomplicated; Z98.84 Bariatric surgery status; Z98.0 Intestinal bypass and anastomosis status; F32.9 Major depressive disorder, single episode, unspecified; F41.9 Anxiety disorder, unspecified; E53.8 Deficiency of other specified B group vitamins; H54.7 Unspecified visual loss; Z88.5 Allergy status to narcotic agent; Z88.0 Allergy status to penicillin; Z91.09 Other allergy status, other than to drugs and biological substances; Z90.49 Acquired absence of other specified parts of digestive tract; Z90.710 Acquired absence of both cervix and uterus; E55.9 Vitamin D deficiency, unspecified
CPT/HCPCS: 36415; 71046; 74177; 74240; 80048; 80053; 81001; 81025; 82150; 82728; 83690; 83735; 84100; 85025; 85027; 87040; 87070; 87081; 87086; 87205; 88307; 94640; 94762; 96361; 96374; 96375; 99284; 99285-25; A9270-GY; C9113; J0131; J0171; J0330; J1100; J1170; J1644; J1956; J2185; J2250; J2270; J2405; J2704; J2710; J2765; J2795; J3010; J3410; J3411; J3420; J3490; J7030; J7042; J7050; J7120; J7620-GY; Q9967

== ENCOUNTER 2018-11-21 18:51 | Inpatient (IN) | payer MEDICAID ==
[2018-11-21] MEDS ORDERED: Ondansetron 4 MG/2 ML SDV IVPUSH ONE (20:00)
[2018-11-21] MEDS ORDERED: Sodium Chloride 0.9% 1,000 ML IV SCH (20:00)
[2018-11-21] MEDS ORDERED: HYDROmorphone 0.5 MG/0.5 ML Syringe IVPUSH ONE (20:01)
--- NOTE | 2018-11-21 20:03 | EDM.PDOC ---
ED HPI GENERAL MEDICAL PROBLEM - General Chief Complaint: Fever Stated Complaint: SURGERY November NOT DOING WELL Time Seen by Provider: 11/21/18 20:03 Source of Information: Reports: Patient History Limitations: Reports: No Limitations - History of Present Illness INITIAL COMMENTS - FREE TEXT/NARRATIVE: pt has a open area on j the rt side of her wound. She has been eating and has had stools, She is having increased pain in the wound site she has a open area. She has had a recent uti and she has been on keflex for that. She she is also having increased pain in the left upper and left lower abdoman. Onset: Today, Other (pain has gotten worse tonight. ) Duration: Hour(s): Location: Reports: Abdomen, Other (hurst some when she takes a deep breath on the left. ) Associated Symptoms: Reports: Weakness Anterior Abdomen Pain Score (Numeric/FACES): 8 - Related Data Allergies Allergy/AdvReac Type Severity Reaction Status Date / Time Penicillins Allergy Hives Verified 11/03/18 17:52 propoxyphene AdvReac Cannot Verified 11/03/18 17:52 [From Luis] [facility] Allergy Severe infection Uncoded 11/03/18 17:52 Home Meds: Home Meds ALPRAZolam [Xanax] 2 mg PO BEDTIME 08/12/17 [History] Venlafaxine HCl [Venlafaxine ER] 150 mg PO DAILY 08/13/17 [History] Cholecalciferol (Vitamin D3) [Vitamin D3] 5,000 unit PO DAILY 08/16/17 [History] Cyanocobalamin (Vitamin B-12) [Vitamin B-12] 1,000 mcg SL DAILY 08/16/17 [ History] Ped Multivit #38/Iron Fumarate [Hm Animal Shapes Complete Chew] 18 mg PO BID 03/26 [History] Vitamin B Complex [B Complex] 1 each PO DAILY 08/16/17 [History] Acetaminophen [Tylenol] 650 mg PO Q4H PRN tablet 12/24/17 [Rx] Acetaminophen/HYDROcodone [[place] 325-5 MG] 1 - 2 tab PO Q4H PRN #40 tablet 12/24 [Rx] Ondansetron [Zofran ODT] 4 mg PO Q4H PRN #30 tab.dis 12/24/17 [Rx] Acetaminophen [Tylenol Extra Strength] 500 mg PO Q6H PRN tablet 11/11/18 [Rx] Acetaminophen/HYDROcodone [[place] 325-5 MG] 1 - 2 tab PO Q6H PRN #50 tablet 11/11 [Rx] Cephalexin [Keflex] 500 mg PO BID 11/21/18 [History] Past Medical History HEENT History: Reports: Impaired Vision, Other (See Below) Other HEENT History: "10% hearing left ear" Respiratory History: Reports: Pneumonia, Recurrent Gastrointestinal History: Reports: Bowel Obstruction, Cholelithiasis Genitourinary History: Reports: None, UTI, Recurrent HOP SEPARATOR History: Reports: Dysfunctional Uterine Bleeding, Fibroids, Polycystic Ovaries, Musculoskeletal History: Reports: Other (See Below) Other Musculoskeletal History: right knee "two cysts and meniscus tear". Neurological History: Reports: Other (See Below) Other Neuro History: patient reports "seizure" recently and did not go to the hospital or get follow up. Psychiatric History: Reports: Anxiety, Depression Endocrine/Metabolic History: Reports: Obesity/BMI 30+ Hematologic History: Reports: B12 Deficiency, Blood Transfusion(s) Other Dermatologic History: draining wound abd - Infectious Disease History Infectious Disease History: Reports: Chicken Pox - Past Surgical History HEENT Surgical History: Reports: Myringotomy w Tube(s), Other (See Below) Other HEENT Surgeries/Procedures: skin grafting with ear drum repair GI Surgical History: Reports: Bariatric Procedure, Cholecystectomy, Colon, EGD, Hernia Repair/Other, Lysis of Adhesions, Small Bowel Female Surgical History: Reports: Hysterectomy, Tubal Ligation, Other (See Below) Other Female Surgeries/Procedures: "partial hysterectomy" Musculoskeletal Surgical History: Reports: None Social & Family History - Family History Family Medical History: Noncontributory - Tobacco Use Smoking Status *Q: Current Every Day Smoker Years of Tobacco use: 20 Packs/Tins Daily: 0.5 - Caffeine Use Caffeine Use: Reports: Soda - Alcohol Use Days Per Week of Alcohol Use: 1 Number of Drinks Per Day: 2 Total Drinks Per Week: 2 - Recreational Drug Use Recreational Drug Use: No ED ROS GENERAL - Review of Systems Review Of Systems: See Below Constitutional: Reports: No Symptoms HEENT: Reports: No Symptoms Respiratory: Reports: No Symptoms Cardiovascular: Reports: No Symptoms Endocrine: Reports: No Symptoms GI/Abdominal: Reports: Abdominal Pain, Other (pt has had pain in the left upper and left lower abdoman. she has an open area in the wound on the rt side about a inch in length. It does not look real red or angry. ) : Reports: Dysuria, Other (pt is finishing a course of keflex. ) Musculoskeletal: Reports: No Symptoms Skin: Reports: No Symptoms ED EXAM, SEPSIS - Physical Exam Exam: See Below Text/Narrative:: pt arrived with a history of a small area in the wound that is opened. This has some smelly discharge. She has had increased pain in the left upper and left lower abdoman. Exam Limited By: No Limitations General Appearance: Alert, Anxious, Moderate Distress Ears: Normal TMs Nose: Normal Inspection Throat/Mouth: Normal Inspection Head: Atraumatic Neck: Normal Inspection Respiratory/Chest: No Respiratory Distress Cardiovascular: Regular Rate, Rhythm, Tachycardia GI/Abdominal Exam: Soft, Other (pt has a 1 inch open area on the rt side of the wound. She is finishing keflex for a UTI. She is tender in the left upper and left lower abdoman. She does hurt some when she takes a deep breath. ) (Female) Exam: Deferred Rectal (Female) Exam: Deferred Back: Normal Inspection Neurological: Alert, Oriented, Normal Cognition Psychiatric: Normal Affect Course - Vital Signs Last Recorded V/S: Last Vital Signs Temp 35.9 C 11/21/18 23:16 Pulse 85 11/21/18 23:16 Resp 16 11/21/18 23:16 BP 111/78 11/21/18 23:16 Pulse Ox 100 11/21/18 23:16 - Orders/Labs/Meds Orders: Active Orders 24 hr Category Date Time Status Iopamidol [Isovue-300 (61%)] Med 11/21/18 21:45 Active 100 ml IV . DIRECTED Sodium Chloride 0.9% [Normal Saline] 1,000 ml Med 11/21/18 20:00 Active IV ASDIRECTED Sodium Chloride 0.9% [Normal Saline] 1,000 ml Med 11/21/18 21:30 Active IV ASDIRECTED Sodium Chloride 0.9% [Normal Saline] 80 ml Med 11/21/18 21:45 Active IV ASDIRECTED Sodium Chloride 0.9% [Saline Flush] Med 11/21/18 21:33 Active 10 ml FLUSH ASDIRECTED PRN Medication Orders Sodium Chloride (Normal Saline) 1,000 mls @ 999 mls/hr IV ASDIRECTED TOMAS Last Admin: 11/21/18 20:18 Dose: 999 mls/hr Sodium Chloride (Normal Saline) 1,000 mls @ 999 mls/hr IV ASDIRECTED TOMAS Last Admin: 11/21/18 21:25 Dose: 999 mls/hr Sodium Chloride (Normal Saline) 80 mls @ 3 mls/sec IV ASDIRECTED TOMAS Last Admin: 11/21/18 21:51 Dose: 3 mls/sec Iopamidol (Isovue-300 (61%)) 100 ml IV . DIRECTED TOMAS Last Admin: 11/21/18 21:51 Dose: 100 ml Sodium Chloride (Saline Flush) 10 ml FLUSH ASDIRECTED PRN PRN Reason: Keep Vein Open Last Admin: 11/21/18 21:51 Dose: 10 ml Labs: Laboratory Tests 11/21/18 11/21/18 11/21/18 Range/Units 20:02 20:18 20:18 WBC 13.1 H (4.5-11.0) K/uL RBC 3.63 (3.30-5.50) M/uL Hgb 12.3 D (12.0-15.0) g/dL Hct 38.6 (36.0-48.0) % MCV 106 H (80-98) fL MCH 34 H (27-31) pg MCHC 32 (32-36) % Plt Count 629 H (150-400) K/uL Neut % (Auto) 58 (36-66) % Lymph % (Auto) 31 (24-44) % [place] % (Auto) 7 H (2-6) % Eos % (Auto) 3 (2-4) % Baso % (Auto) 1 (0-1) % Sodium 140 (140-148) mmol/L Potassium 3.8 (3.6-5.2) mmol/L Chloride 105 (100-108) mmol/L Carbon Dioxide 25 (21-32) mmol/L Anion Gap 10.0 (5.0-14.0) mmol/L BUN 18 D (7-18) mg/dL Creatinine 0.7 (0.6-1.0) mg/dL Est Cr Clr Drug Dosing 87.03 mL/min Estimated GFR (MDRD) > 60 (>60) Glucose 78 (74-106) mg/dL Lactic Acid (0.4-2.0) mmol/L Calcium 9.4 (8.5-10.1) mg/dL Total Bilirubin 0.2 (0.2-1.0) mg/dL AST 18 (15-37) U/L ALT 34 (12-78) U/L Alkaline Phosphatase 104 (46-116) U/L C-Reactive Protein (0.0-0.3) mg/dL Total Protein 7.3 (6.4-8.2) g/dL Albumin 3.2 L (3.4-5.0) g/dL Globulin 4.1 H (2.3-3.5) g/dL Albumin/Globulin Ratio 0.8 L (1.2-2.2) Urine Color Yellow Urine Appearance Clear Urine pH 5.0 (4.5-8.0) Ur Specific [place] 1.020 (1.008-1.030) Urine Protein Trace (NEGATIVE) mg/dL Urine Glucose (UA) Normal (NEGATIVE) mg/dL Urine Ketones Negative (NEGATIVE) mg/dL Urine Occult Blood Negative (NEGATIVE) Urine Nitrite Negative (NEGATIVE) Urine Bilirubin Negative (NEGATIVE) Urine Urobilinogen Normal (NORMAL) mg/dL Ur Leukocyte Esterase Negative (NEGATIVE) Urine RBC 0-5 (0-5) Urine WBC 0-5 (0-5) Ur Epithelial Cells Rare Amorphous Sediment Few Urine Bacteria Not seen Urine Mucus Not seen 11/21/18 11/21/18 Range/Units 20:18 20:18 WBC (4.5-11.0) K/uL RBC (3.30-5.50) M/uL Hgb (12.0-15.0) g/dL Hct (36.0-48.0) % MCV (80-98) fL MCH (27-31) pg MCHC (32-36) % Plt Count (150-400) K/uL Neut % (Auto) (36-66) % Lymph % (Auto) (24-44) % [place] % (Auto) (2-6) % Eos % (Auto) (2-4) % Baso % (Auto) (0-1) % Sodium (140-148) mmol/L Potassium (3.6-5.2) mmol/L Chloride (100-108) mmol/L Carbon Dioxide (21-32) mmol/L Anion Gap (5.0-14.0) mmol/L BUN (7-18) mg/dL Creatinine (0.6-1.0) mg/dL Est Cr Clr Drug Dosing mL/min Estimated GFR (MDRD) (>60) Glucose (74-106) mg/dL Lactic Acid 2.2 H (0.4-2.0) mmol/L Calcium (8.5-10.1) mg/dL Total Bilirubin (0.2-1.0) mg/dL AST (15-37) U/L ALT (12-78) U/L Alkaline Phosphatase (46-116) U/L C-Reactive Protein 0.16 (0.0-0.3) mg/dL Total Protein (6.4-8.2) g/dL Albumin (3.4-5.0) g/dL Globulin (2.3-3.5) g/dL Albumin/Globulin Ratio (1.2-2.2) Urine Color Urine Appearance Urine pH (4.5-8.0) Ur Specific [place] (1.008-1.030) Urine Protein (NEGATIVE) mg/dL Urine Glucose (UA) (NEGATIVE) mg/dL Urine Ketones (NEGATIVE) mg/dL Urine Occult Blood (NEGATIVE) Urine Nitrite (NEGATIVE) Urine Bilirubin (NEGATIVE) Urine Urobilinogen (NORMAL) mg/dL Ur Leukocyte Esterase (NEGATIVE) Urine RBC (0-5) Urine WBC (0-5) Ur Epithelial Cells Amorphous Sediment Urine Bacteria Urine Mucus Meds: Medications Generic Name Dose Route Start Last Admin Trade Name Freq PRN Reason Stop Dose Admin Sodium Chloride 1,000 mls @ 999 mls/hr 11/21/18 20:00 11/21/18 20:18 Normal Saline IV 999 mls/hr ASDIRECTED TOMAS Administration Sodium Chloride 1,000 mls @ 999 mls/hr 11/21/18 21:30 11/21/18 21:25 Normal Saline IV 999 mls/hr ASDIRECTED TOMAS Administration Sodium Chloride 80 mls @ 3 mls/sec 11/21/18 21:45 11/21/18 21:51 Normal Saline IV 3 mls/sec ASDIRECTED TOMAS Administration Iopamidol 100 ml 11/21/18 21:45 11/21/18 21:51 Isovue-300 (61%) IV 100 ml . DIRECTED TOMAS Administration Sodium Chloride 10 ml 11/21/18 21:33 11/21/18 21:51 Saline Flush FLUSH 10 ml ASDIRECTED PRN Administration Keep Vein Open Discontinued Medications Generic Name Dose Route Start Last Admin Trade Name Freq PRN Reason Stop Dose Admin Hydromorphone HCl 0.5 mg 11/21/18 20:01 11/21/18 20:32 Dilaudid IVPUSH 11/21/18 20:02 0.5 mg ONETIME ONE Administration Hydromorphone HCl 1 mg 11/21/18 21:22 11/21/18 21:31 Dilaudid IVPUSH 11/21/18 21:23 1 mg ONETIME ONE Administration Ondansetron HCl 4 mg 11/21/18 20:00 11/21/18 20:31 Zofran IVPUSH 11/21/18 20:01 4 mg ONETIME ONE Administration - Re-Assessments/Exams Free Text/Narrative Re-Assessment/Exam: 11/21/18 23:40 wbc is 13,000. Her urine looks good. Her chems are normal. Her cat scan does not show acute ptoblems. The wound was cleaned and dressed. Dr Sánchez was consulted and he felt she should be admited for observation. Departure - Departure Time of Disposition: 23:42 Disposition: Admitted As Inpatient 67 Condition: Fair Clinical Impression: Dehydration, Wound infection, Left lower lobe pulmonary infiltrate Abdominal pain Qualifiers: Qualified Code(s): R10.10 - Upper abdominal pain, unspecified - Discharge Information Referrals: Joseph Sánchez MD [Primary Care Provider] - Forms: ED Department Discharge Care Plan Goals: admit to Dr Sácnhez. - My Orders Last 24 Hours: My Active Orders 11/21/18 20:00 Sodium Chloride 0.9% [Normal Saline] 1,000 ml IV ASDIRECTED 11/21/18 21:30 Sodium Chloride 0.9% [Normal Saline] 1,000 ml IV ASDIRECTED 11/21/18 21:33 Sodium Chloride 0.9% [Saline Flush] 10 ml FLUSH ASDIRECTED PRN 11/21/18 21:45 Iopamidol [Isovue-300 (61%)] 100 ml IV . DIRECTED Sodium Chloride 0.9% [Normal Saline] 80 ml IV ASDIRECTED - Assessment/Plan Last 24 Hours: My Active Orders 11/21/18 20:00 Sodium Chloride 0.9% [Normal Saline] 1,000 ml IV ASDIRECTED 11/21/18 21:30 Sodium Chloride 0.9% [Normal Saline] 1,000 ml IV ASDIRECTED 11/21/18 21:33 Sodium Chloride 0.9% [Saline Flush] 10 ml FLUSH ASDIRECTED PRN 11/21/18 21:45 Iopamidol [Isovue-300 (61%)] 100 ml IV . DIRECTED Sodium Chloride 0.9% [Normal Saline] 80 ml IV ASDIRECTED
[2018-11-21] MEDS ORDERED: HYDROmorphone 1 MG/ML Syringe IVPUSH ONE (21:22)
[2018-11-21] MEDS: Sodium Chloride 0.9% 1,000 ML IV SCH (21:25)
[2018-11-21] MEDS ORDERED: Sodium Chloride 0.9% 10 ML Syringe FLUSH PRN (21:33)
[2018-11-21] MEDS ORDERED: Sodium Chloride 0.9% 80 ML IV SCH (21:45)
[2018-11-21] MEDS ORDERED: Iopamidol 612 MG/ML 100 ML Bottle IV SCH (21:45)
--- NOTE | 2018-11-21 22:47 | CRLCT ---
INDICATION: Abdominal pain and fever TECHNIQUE: CT abdomen and pelvis acquired with 100 cc Isovue-300 intravenous contrast. COMPARISON: Abdomen and pelvis CT 11/03/2018 FINDINGS: Lower chest: Ground-glass and centrilobular nodularity within the left lower lobe. Liver: Normal in contour with a 3 millimeter hypodense lesion within the dome of the liver which is too small for characterization. Gallbladder and bile ducts: Status post cholecystectomy with dilatation of the common duct measuring up to 15 millimeters. This is similar to the prior examination. Pancreas: Unremarkable. No mass or inflammation. Spleen: Unremarkable. Normal in size. No masses. Adrenal glands: Unremarkable. No nodules. Kidneys: Unremarkable. No masses, stones, or hydronephrosis. GI tract: Status post gastric bypass. Small bowel suture lines are present along the left flank. Upper normal diameter loops of small bowel with multiple subcentimeter lymph nodes within the central mesentery. There is moderate distention of the colon extending to the rectum with a small amount of stool within the colon. Trace free fluid. Vasculature: Unremarkable. Pelvis: The bladder is unremarkable. Status posthysterectomy. No adnexal mass. Bones: Old left 9th and 10th rib fractures. IMPRESSION: 1. Centrilobular nodularity ground-glass opacities redemonstrated in left lower lobe suspicious for an infectious bronchiolitis although similar to the study of 2 weeks prior. 2. Upper normal diameter loops of small bowel as well as moderate distention of the colon seen to the level of the rectum. No convincing evidence for obstruction. This is nonspecific but could be seen in a mild enteritis/ileus. 3. Status post cholecystectomy with dilatation of the common duct although similar to the prior examination. Please note that all CT scans at this facility use dose modulation, iterative reconstruction, and/or weight-based dosing when appropriate to reduce radiation dose to as low as reasonably achievable. Dictated by Carmelo Levin MD @ Nov 21 2018 10:35PM Signed by Dr. Carmelo Levin @ Nov 21 2018 10:46PM
[2018-11-21] MEDS ORDERED: cefTRIAXone 1 GM in Sodium Chloride 0.9% 50 ML IV ONE (23:43)
[2018-11-22] MEDS: Sodium Chloride 0.9% 1,000 ML IV SCH (00:28)
[2018-11-22] MEDS ORDERED: Naloxone 0.4 MG/ML SDV IV PRN (00:52)
[2018-11-22] MEDS ORDERED: HYDROmorphone/Normal Saline 15 MG/30 ML PCA IV PRN (00:52)
[2018-11-22] MEDS ORDERED: Sodium Chloride 0.9% 1,000 ML IV SCH (01:00)
[2018-11-22] MEDS ORDERED: ALPRAZolam 0.25 MG Tab PO ONE (01:14)
[2018-11-22] MEDS ORDERED: ALPRAZolam 0.25 MG Tab PO STA (01:39)
[2018-11-22] MEDS ORDERED: ALPRAZolam 0.5 MG Tab PO STA (01:47)
[2018-11-22] MEDS ORDERED: Acetaminophen/HYDROcodone 325-10 MG Tab PO PRN (07:30)
[2018-11-22] MEDS: MVI, Adult with Vitamin K 10 ML, Chromium/Copper/Mang/Selen/Zn 1 ML in Dextrose 5%-Lact... IV SCH ×6 (08:21→18:31)
[2018-11-22] MEDS: Bisacodyl 5 MG Tab PO SCH ×2 (09:20→20:24)
[2018-11-22] MEDS: Docusate Sodium 100 MG Cap PO SCH ×2 (09:20→20:24)
[2018-11-22] MEDS: Venlafaxine 75 MG Cap.ER PO SCH (12:16)
[2018-11-22] MEDS: HYDROmorphone 2 MG Tab PO PRN ×3 (12:31→21:26)
--- NOTE | 2018-11-22 17:29 | PCM.CONS ---
H&P History of Present Illness - General Date of Service: 11/22/18 Admit Problem/Dx: Admission Diagnosis/Problem Admission Diagnosis/Problem Abdominal pain Source of Information: Patient, Family, Provider, RN Notes Reviewed History Limitations: Reports: No Limitations - History of Present Illness Initial Comments - Free Text/Narative: Ms. Meza is a 38-year-old woman who I been asked to see by Dr. Sánchez for further suggestions concerning evaluation and management of left lung infiltrate noted on CT scan of the abdomen and pelvis. She was admitted to this facility approximately a half weeks ago with abdominal pain. She is status post Gilson-en-Y gastric bypass surgery. CT scan of the abdomen and pelvis at that time did show evidence of a left lower lobe pneumonia and she was treated with IV and oral levofloxacin. EGD was performed which showed no significant abnormalities. She was then taken to the operating room for an exploratory laparotomy. She underwent repair of the jejunal to jejunal anastomosis as well as an incarcerated recurrent incisional hernia. Postoperative course has been complicated by abdominal wound infection. She was discharged to home and reports that she has had ongoing difficulty with shortness of breath. Denies true fevers and has not had much in the way of a cough. She returned to the emergency department last night because of recurrent abdominal pain especially in the area of her healing surgical wound. CT scan of the abdomen and pelvis was repeated and she was again noted to have left lower lung infiltrate. She denies a previous history of pulmonary disease, she does smoke one pack of cigarettes every 2 weeks. The area of infiltrate did not appear to be significantly changed since the last CT scan 2-1/2 weeks ago. Anterior Abdomen Pain Score (Numeric/FACES): 7 - Related Data Allergies/Adverse Reactions: Allergies Allergy/AdvReac Type Severity Reaction Status Date / Time Penicillins Allergy Hives Verified 11/22/18 01:30 propoxyphene AdvReac Cannot Verified 11/22/18 01:30 [From Luis] [facility] Allergy Severe infection Uncoded 11/03/18 17:52 Home Medications: Home Meds ALPRAZolam [Xanax] 2 mg PO BEDTIME 08/12/17 [History] Venlafaxine HCl [Venlafaxine ER] 150 mg PO DAILY 08/13/17 [History] Cholecalciferol (Vitamin D3) [Vitamin D3] 5,000 unit PO DAILY 08/16/17 [History] Cyanocobalamin (Vitamin B-12) [Vitamin B-12] 1,000 mcg SL DAILY 08/16/17 [ History] Ped Multivit #38/Iron Fumarate [Hm Animal Shapes Complete Chew] 18 mg PO BID 03/26 [History] Vitamin B Complex [B Complex] 1 each PO DAILY 08/16/17 [History] Acetaminophen [Tylenol] 650 mg PO Q4H PRN tablet 12/24/17 [Rx] Acetaminophen/HYDROcodone [[place] 325-5 MG] 1 - 2 tab PO Q4H PRN #40 tablet 12/24 [Rx] Ondansetron [Zofran ODT] 4 mg PO Q4H PRN #30 tab.dis 12/24/17 [Rx] Acetaminophen [Tylenol Extra Strength] 500 mg PO Q6H PRN tablet 11/11/18 [Rx] Acetaminophen/HYDROcodone [[place] 325-5 MG] 1 - 2 tab PO Q6H PRN #50 tablet 11/11 [Rx] Cephalexin [Keflex] 500 mg PO BID 11/21/18 [History] Past Medical History HEENT History: Reports: Impaired Vision, Other (See Below) Other HEENT History: "10% hearing left ear" Respiratory History: Reports: Pneumonia, Recurrent Gastrointestinal History: Reports: Bowel Obstruction, Cholelithiasis Genitourinary History: Reports: None, UTI, Recurrent 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 Neurological History: Reports: Other (See Below) Other Neuro History: patient reports "seizure" recently and did not go to the hospital or get follow up. Psychiatric History: Reports: Anxiety, Depression Endocrine/Metabolic History: Reports: Obesity/BMI 30+ Hematologic History: Reports: B12 Deficiency, Blood Transfusion(s) Other Dermatologic History: draining wound abd - Infectious Disease History Infectious Disease History: Reports: Chicken Pox - Past Surgical History HEENT Surgical History: Reports: Myringotomy w Tube(s), Other (See Below) Other HEENT Surgeries/Procedures: skin grafting with ear drum repair Respiratory Surgical History: Reports: None GI Surgical History: Reports: Bariatric Procedure, Cholecystectomy, Colon, EGD, Hernia Repair/Other, Lysis of Adhesions, Small Bowel Female Surgical History: Reports: Hysterectomy, Tubal Ligation, Other (See Below) Other Female Surgeries/Procedures: "partial hysterectomy" Endocrine Surgical History: Reports: None Neurological Surgical History: Reports: None Musculoskeletal Surgical History: Reports: None Dermatological Surgical History: Reports: None Social & Family History - Family History Family Medical History: Noncontributory - Tobacco Use Smoking Status *Q: Current Every Day Smoker Years of Tobacco use: 20 Packs/Tins Daily: 0.5 Used Tobacco, but Quit: No Second Hand Smoke Exposure: Yes - Caffeine Use Caffeine Use: Reports: Soda - Alcohol Use Days Per Week of Alcohol Use: 1 Number of Drinks Per Day: 2 Total Drinks Per Week: 2 - Recreational Drug Use Recreational Drug Use: No H&P Review of Systems - Review of Systems: Review Of Systems: See Below General: Reports: Weakness, Fatigue, Decreased Appetite. Denies: Fever, Chills Pulmonary: Reports: Shortness of Breath. Denies: Wheezing, Pleuritic Chest Pain , Cough, Sputum, Hemoptysis Cardiovascular: Reports: Dyspnea on Exertion. Denies: Chest Pain, Palpitations , Orthopnea, PND, Edema Gastrointestinal: Reports: Abdominal Pain, Diarrhea, Decreased Appetite, Nausea. Denies: Constipation, Difficulty Swallowing, Distension, Vomiting Genitourinary: Reports: No Symptoms Musculoskeletal: Reports: No Symptoms Exam - Exam Exam: See Below - Vital Signs Vital Signs: Last Vital Signs Temp 97.8 F 11/22/18 14:35 Pulse 87 11/22/18 14:35 Resp 16 11/22/18 14:35 BP 110/69 11/22/18 14:35 Pulse Ox 96 11/22/18 14:35 Weight: 143 lb 8.335 oz - Exam General: Alert, Oriented, Cooperative, Mild Distress Neck: Supple, Trachea Midline, +2 Carotid Pulse wo Bruit Lungs: Clear to Auscultation, Normal Respiratory Effort Cardiovascular: Regular Rate, Regular Rhythm, Normal S1, Normal S2. No: Systolic Murmur, Diastolic Murmur GI/Abdominal Exam: Soft, No Organomegaly, Tender. No: Distended, Guarding, Rigid, Rebound Extremities: Non-Tender, No Pedal Edema Skin: Warm, Dry, Other (Small open abdominal wound at the umbilicus, draining but no evidence of surrounding infection.) - Patient Data Lab Results Last 24 hrs: Laboratory Results - last 24 hr 11/21/18 11/21/18 11/21/18 Range/Units 20:02 20:18 20:18 WBC 13.1 H (4.5-11.0) K/uL RBC 3.63 (3.30-5.50) M/uL Hgb 12.3 D (12.0-15.0) g/dL Hct 38.6 (36.0-48.0) % MCV 106 H (80-98) fL MCH 34 H (27-31) pg MCHC 32 (32-36) % Plt Count 629 H (150-400) K/uL Neut % (Auto) 58 (36-66) % Lymph % (Auto) 31 (24-44) % Woods % (Auto) 7 H (2-6) % Eos % (Auto) 3 (2-4) % Baso % (Auto) 1 (0-1) % Sodium 140 (140-148) mmol/L Potassium 3.8 (3.6-5.2) mmol/L Chloride 105 (100-108) mmol/L Carbon Dioxide 25 (21-32) mmol/L Anion Gap 10.0 (5.0-14.0) mmol/L BUN 18 D (7-18) mg/dL Creatinine 0.7 (0.6-1.0) mg/dL Est Cr Clr Drug Dosing 87.03 mL/min Estimated GFR (MDRD) > 60 (>60) Glucose 78 (74-106) mg/dL Lactic Acid (0.4-2.0) mmol/L Calcium 9.4 (8.5-10.1) mg/dL Phosphorus (2.5-4.9) mg/dL Magnesium (1.8-2.4) mg/dL Ferritin (8-388) ng/ml Total Bilirubin 0.2 (0.2-1.0) mg/dL AST 18 (15-37) U/L ALT 34 (12-78) U/L Alkaline Phosphatase 104 (46-116) U/L C-Reactive Protein (0.0-0.3) mg/dL Total Protein 7.3 (6.4-8.2) g/dL Albumin 3.2 L (3.4-5.0) g/dL Globulin 4.1 H (2.3-3.5) g/dL Albumin/Globulin Ratio 0.8 L (1.2-2.2) Vitamin B12 (193-986) pg/ml Folate (8.6-58.9) ng/ml Urine Color Yellow Urine Appearance Clear Urine pH 5.0 (4.5-8.0) Ur Specific [place] 1.020 (1.008-1.030) Urine Protein Trace (NEGATIVE) mg/dL Urine Glucose (UA) Normal (NEGATIVE) mg/dL Urine Ketones Negative (NEGATIVE) mg/dL Urine Occult Blood Negative (NEGATIVE) Urine Nitrite Negative (NEGATIVE) Urine Bilirubin Negative (NEGATIVE) Urine Urobilinogen Normal (NORMAL) mg/dL Ur Leukocyte Esterase Negative (NEGATIVE) Urine RBC 0-5 (0-5) Urine WBC 0-5 (0-5) Ur Epithelial Cells Rare Amorphous Sediment Few Urine Bacteria Not seen Urine Mucus Not seen 11/21/18 11/21/18 11/22/18 Range/Units 20:18 20:18 07:46 WBC (4.5-11.0) K/uL RBC (3.30-5.50) M/uL Hgb (12.0-15.0) g/dL Hct (36.0-48.0) % MCV (80-98) fL MCH (27-31) pg MCHC (32-36) % Plt Count (150-400) K/uL Neut % (Auto) (36-66) % Lymph % (Auto) (24-44) % Woods % (Auto) (2-6) % Eos % (Auto) (2-4) % Baso % (Auto) (0-1) % Sodium (140-148) mmol/L Potassium (3.6-5.2) mmol/L Chloride (100-108) mmol/L Carbon Dioxide (21-32) mmol/L Anion Gap (5.0-14.0) mmol/L BUN (7-18) mg/dL Creatinine (0.6-1.0) mg/dL Est Cr Clr Drug Dosing mL/min Estimated GFR (MDRD) (>60) Glucose (74-106) mg/dL Lactic Acid 2.2 H (0.4-2.0) mmol/L Calcium (8.5-10.1) mg/dL Phosphorus (2.5-4.9) mg/dL Magnesium (1.8-2.4) mg/dL Ferritin 82 (8-388) ng/ml Total Bilirubin (0.2-1.0) mg/dL AST (15-37) U/L ALT (12-78) U/L Alkaline Phosphatase (46-116) U/L C-Reactive Protein 0.16 (0.0-0.3) mg/dL Total Protein (6.4-8.2) g/dL Albumin (3.4-5.0) g/dL Globulin (2.3-3.5) g/dL Albumin/Globulin Ratio (1.2-2.2) Vitamin B12 843 (193-986) pg/ml Folate (8.6-58.9) ng/ml Urine Color Urine Appearance Urine pH (4.5-8.0) Ur Specific [place] (1.008-1.030) Urine Protein (NEGATIVE) mg/dL Urine Glucose (UA) (NEGATIVE) mg/dL Urine Ketones (NEGATIVE) mg/dL Urine Occult Blood (NEGATIVE) Urine Nitrite (NEGATIVE) Urine Bilirubin (NEGATIVE) Urine Urobilinogen (NORMAL) mg/dL Ur Leukocyte Esterase (NEGATIVE) Urine RBC (0-5) Urine WBC (0-5) Ur Epithelial Cells Amorphous Sediment Urine Bacteria Urine Mucus 11/22/18 11/22/18 Range/Units 07:46 07:46 WBC (4.5-11.0) K/uL RBC (3.30-5.50) M/uL Hgb (12.0-15.0) g/dL Hct (36.0-48.0) % MCV (80-98) fL MCH (27-31) pg MCHC (32-36) % Plt Count (150-400) K/uL Neut % (Auto) (36-66) % Lymph % (Auto) (24-44) % Woods % (Auto) (2-6) % Eos % (Auto) (2-4) % Baso % (Auto) (0-1) % Sodium (140-148) mmol/L Potassium (3.6-5.2) mmol/L Chloride (100-108) mmol/L Carbon Dioxide (21-32) mmol/L Anion Gap (5.0-14.0) mmol/L BUN (7-18) mg/dL Creatinine (0.6-1.0) mg/dL Est Cr Clr Drug Dosing mL/min Estimated GFR (MDRD) (>60) Glucose (74-106) mg/dL Lactic Acid (0.4-2.0) mmol/L Calcium (8.5-10.1) mg/dL Phosphorus 4.6 (2.5-4.9) mg/dL Magnesium 2.1 (1.8-2.4) mg/dL Ferritin (8-388) ng/ml Total Bilirubin (0.2-1.0) mg/dL AST (15-37) U/L ALT (12-78) U/L Alkaline Phosphatase (46-116) U/L C-Reactive Protein (0.0-0.3) mg/dL Total Protein (6.4-8.2) g/dL Albumin (3.4-5.0) g/dL Globulin (2.3-3.5) g/dL Albumin/Globulin Ratio (1.2-2.2) Vitamin B12 (193-986) pg/ml Folate 15.9 (8.6-58.9) ng/ml Urine Color Urine Appearance Urine pH (4.5-8.0) Ur Specific [place] (1.008-1.030) Urine Protein (NEGATIVE) mg/dL Urine Glucose (UA) (NEGATIVE) mg/dL Urine Ketones (NEGATIVE) mg/dL Urine Occult Blood (NEGATIVE) Urine Nitrite (NEGATIVE) Urine Bilirubin (NEGATIVE) Urine Urobilinogen (NORMAL) mg/dL Ur Leukocyte Esterase (NEGATIVE) Urine RBC (0-5) Urine WBC (0-5) Ur Epithelial Cells Amorphous Sediment Urine Bacteria Urine Mucus Result Diagrams: 11/21/18 20:18 11/21/18 20:18 Consult PN Assessment/Plan Procedures: Procedures ASSAY OF LIPASE (12/17/17) C DIFF AMPLIFIED PROBE (01/14/18) COMPLETE CBC AUTOMATED (12/17/17) COMPREHEN METABOLIC PANEL (12/17/17) CT ABD & PELV W/CONTRAST (01/14/18) EMERGENCY DEPT VISIT (12/17/17) HYDRATE IV INFUSION ADD-ON (12/17/17) ROUTINE VENIPUNCTURE (12/17/17) THER/PROPH/DIAG INJ IV PUSH (12/17/17) TX/PRO/DX INJ NEW DRUG ADDON (12/17/17) TX/PRO/DX INJ SAME DRUG CLOTH REELER (12/17/17) Problem List Initiated/Reviewed/Updated: Yes My Orders Last 24 Hours: My Active Orders 11/22/18 17:26 Ang Chest [CT] Urgent Plan: ASSESSMENT AND RECOMMENDATIONS LEFT LOWER LOBE INFILTRATE NOTED ON ABDOMINAL CT SCAN-similar infiltrate noted on previous CT scan 2-1/2 weeks ago and she completed a 7 day course of levofloxacin. Infiltrate does not appear to be significantly changed over the past 2-1/2 weeks and is relatively small. She has noted symptoms of dyspnea over the past few weeks but denies cough or sputum production. -CT angiogram of the chest for further evaluation -Further recommendations pending CT report HEALING ABDOMINAL WOUND -Management per Dr. Sánchez Requesting Provider: ROSA M Date Consult Requested: 11/22/18 Reason for Consult: Left lower lung infiltrate noted on abdominal CT Patient History Reviewed: Yes
[2018-11-22] MEDS ORDERED: Sodium Chloride 0.9% 10 ML Syringe FLUSH PRN (18:25)
[2018-11-22] MEDS ORDERED: Sodium Chloride 0.9% 100 ML IV SCH (18:30)
[2018-11-22] MEDS ORDERED: Iopamidol 755 Mg/ML 100 ML Bottle IV SCH (18:30)
--- NOTE | 2018-11-22 19:45 | CRLCT ---
INDICATION: Dyspnea. Left lung infiltrate seen on recent abdominal CT. CT CHEST WITH CONTRAST TECHNIQUE: Multidetector CT imaging was performed through the chest following intravenous contrast administration using 100 mL Isovue 370. Coronal and sagittal reconstructions were generated. COMPARISON: None. FINDINGS: Lungs and airways: Subtle patchy infiltrate in the left lower lobe, most likely representing pneumonia. Central airways are patent. Pleura and pleural spaces: No pleural effusions or pneumothorax. Heart and mediastinum: Normal heart size. No significant pericardial effusion. No pathologically enlarged mediastinal lymph nodes. Vascular structures: No filling defects in the pulmonary arterial tree to suggest pulmonary emboli. Normal caliber thoracic aorta. Chest wall and axillae: No mass or axillary lymphadenopathy. Osseous structures: Normal for age. No acute fractures identified. Upper abdomen: Postoperative changes of gastric bypass and cholecystectomy. IMPRESSION: 1. Subtle patchy infiltrate in the left lower lobe, likely representing pneumonia. 2. No evidence of pulmonary emboli or other acute intrathoracic findings. KOFI MORFIN MD [employer] Dictated by Lewis Morfin MD @ 11/22/2018 7:42:00 PM Dictated by: Lewis Morfin MD @ 11/22/2018 19:43:50 (Electronically Signed)
[2018-11-22] MEDS: Acetaminophen 325 MG Tab PO PRN (20:24)
[2018-11-22] MEDS ORDERED: ALPRAZolam 0.5 MG Tab PO SCH (21:00)
[2018-11-23] MEDS: HYDROmorphone 2 MG Tab PO PRN ×6 (01:34→13:23)
[2018-11-23] MEDS ORDERED: Dextrose 5%-Lactated Ringers 1,000 ML IV SCH (02:00)
[2018-11-23] MEDS: Acetaminophen 325 MG Tab PO PRN (05:31)
[2018-11-23] MEDS: Venlafaxine 75 MG Cap.ER PO SCH (09:14)
--- NOTE | 2018-11-23 09:34 | PN ---
DATE OF SERVICE: 11/23/2018 SUBJECTIVE: Amy presented to the emergency room with dehydration, left lower lobe infiltrate, and abdominal pain. Her incision did open up superficially about 1 inch at her umbilicus. She reports abdominal pain in the incision area that is open, an 8/10, taking Dilaudid stating that it is really not helping, requesting a step-4 gastric bypass diet. Vital signs have been stable, afebrile. Oral intake 2450, IV intake 1700. Urine output 8100. She reports having bowel movements. REVIEW OF SYSTEMS: HEENT: Negative. NECK: Negative. CHEST: No chest pain, shortness of breath, fast or irregular heart rate. LUNGS: Occasional cough, nonproductive. ABDOMEN: As above. : No UTI signs and symptoms. EXTREMITIES: Negative for any joint pain or stiffness. NEURO: No loss of coordination or numbness in extremities. PSYCHIATRIC: Positive for anxiety, but adequately treated with Ativan. SKIN: Without rash. Remainder of review systems negative for any pertinent positives or negatives. OBJECTIVE: GENERAL: Amy Meza is a 38-year-old female. VITAL SIGNS: TPR is 96.6, 81, 16. Blood pressure 124/83. HEENT: Negative. NECK: Supple. HEART: Regular rate and rhythm. LUNGS: Reveal decreased breath sounds in bases, but clear. ABDOMEN: An 1 inch area to her midline incision very superficially open. Dressing was removed by Joseph Sánchez M.D. Dressing has not been changed per patient since ER. EXTREMITIES: Negative. NEURO: Intact. SKIN: Without rash. PSYCHIATRIC: Mood and affect appropriate. ASSESSMENT: 1. Dehydration, resolving. 2. Superficial incision opening. 3. Left lower lobe infiltrate. 4. Incisional abdominal pain. PLAN: 1. Dressing off, may shower. 2. To follow through with order of dressing change b.i.d. to open incision. See order from 11/22/2018. 3. Step-4 gastric bypass diet. 4. Discontinue Colace. 5. Discontinue Dulcolax tabs. 6. Discharge per Demetrio Pinto M.D. 7. If discharged today to follow up in Surgery Department in 1 week. 8. We will evaluate sirena Cadena PA-C /[id number]
--- NOTE | 2018-11-23 14:07 | PCM.CONSN ---
- General Info Date of Service: 11/23/18 Subjective Update: Ms. Meza has been stable since yesterday, continues to deny respiratory symptoms. Vital signs have been stable and she has remained afebrile. Functional Status: Reports: Tolerating Diet, Urinating - Review of Systems General: Denies: Fever, Chills Pulmonary: Reports: No Symptoms Cardiovascular: Reports: No Symptoms Gastrointestinal: Reports: No Symptoms - Patient Data Vitals - Most Recent: Last Vital Signs Temp 99 F 11/23/18 11:40 Pulse 82 11/23/18 11:40 Resp 12 11/23/18 11:40 BP 132/76 11/23/18 11:40 Pulse Ox 99 11/23/18 11:40 Weight - Most Recent: 143 lb 8.335 oz I&O - Last 24 Hours: Intake & Output 11/22/18 11/23/18 11/23/18 22:59 06:59 14:59 Intake Total 4146 153 1685 Output Total 3600 2700 2000 Balance -1906 -2250 -280 Lab Results Last 24 Hours: Laboratory Results - last 24 hr 11/23/18 11/23/18 Range/Units 05:09 05:09 WBC 7.9 (4.5-11.0) K/uL RBC 3.31 (3.30-5.50) M/uL Hgb 10.8 L (12.0-15.0) g/dL Hct 34.9 L (36.0-48.0) % MCV 105 H (80-98) fL MCH 33 H (27-31) pg MCHC 31 L (32-36) % Plt Count 556 H (150-400) K/uL Sodium 141 (140-148) mmol/L Potassium 3.8 (3.6-5.2) mmol/L Chloride 105 (100-108) mmol/L Carbon Dioxide 30 (21-32) mmol/L Anion Gap 6.0 (5.0-14.0) mmol/L BUN 10 (7-18) mg/dL Creatinine 0.5 L (0.6-1.0) mg/dL Est Cr Clr Drug Dosing 120.78 mL/min Estimated GFR (MDRD) > 60 (>60) Glucose 85 (74-106) mg/dL Calcium 8.8 (8.5-10.1) mg/dL Phosphorus 3.7 (2.5-4.9) mg/dL Magnesium 1.9 (1.8-2.4) mg/dL Total Bilirubin 0.1 L (0.2-1.0) mg/dL AST 17 (15-37) U/L ALT 25 (12-78) U/L Alkaline Phosphatase 90 (46-116) U/L Total Protein 6.1 L (6.4-8.2) g/dL Albumin 2.7 L (3.4-5.0) g/dL Globulin 3.4 (2.3-3.5) g/dL Albumin/Globulin Ratio 0.8 L (1.2-2.2) Rodo Results Last 24 Hours: Microbiology 11/22/18 19:14 Gram Stain - Final Sputum - Expectorated Med Orders - Current: Current Medications Acetaminophen (Tylenol) 650 mg PO Q4H PRN PRN Reason: Pain (mild 1-3) Last Admin: 11/23/18 05:31 Dose: 650 mg Alprazolam (Xanax) 2 mg PO BEDTIME [facility] Last Admin: 11/22/18 20:24 Dose: 2 mg Hydromorphone HCl (Dilaudid) 2 mg PO Q4H PRN PRN Reason: Pain (moderate 4-6) Last Admin: 11/23/18 13:23 Dose: 2 mg Hydromorphone HCl (Dilaudid) 4 mg PO Q4H PRN PRN Reason: Pain (severe 7-10) Last Admin: 11/23/18 09:18 Dose: 4 mg Sodium Chloride (Normal Saline) 100 mls @ 3 mls/sec IV ASDIRECTED [facility] Last Admin: 11/22/18 18:50 Dose: 4 mls/sec Iopamidol (Isovue-370 (76%)) 100 ml IV . DIRECTED TOMAS Last Admin: 11/22/18 18:50 Dose: 100 ml Sodium Chloride (Saline Flush) 10 ml FLUSH ASDIRECTED PRN PRN Reason: Keep Vein Open Last Admin: 11/22/18 18:49 Dose: 10 ml Venlafaxine HCl (Effexor Xr) 150 mg PO DAILY [facility] Last Admin: 11/23/18 09:14 Dose: 150 mg Discontinued Medications Hydrocodone Bitart/Acetaminophen ([place] 325-10 Mg) 1 tab PO Q4H PRN PRN Reason: Pain Last Admin: 11/22/18 09:20 Dose: 1 tab Alprazolam (Xanax) 2 mg PO ONETIME ONE Stop: 11/22/18 01:15 Last Admin: 11/22/18 02:07 Dose: Not Given Alprazolam (Xanax) 0.5 mg PO NOW STA Stop: 11/22/18 01:40 Last Admin: 11/22/18 02:07 Dose: Not Given Alprazolam (Xanax) 2 mg PO NOW STA Stop: 11/22/18 01:48 Last Admin: 11/22/18 02:05 Dose: 2 mg Bisacodyl (Dulcolax) 10 mg PO BID [facility] Last Admin: 11/22/18 20:24 Dose: Not Given Docusate Sodium (Colace) 100 mg PO BID [facility] Last Admin: 11/22/18 20:24 Dose: Not Given Hydromorphone HCl (Dilaudid) 0.5 mg IVPUSH ONETIME ONE Stop: 11/21/18 20:02 Last Admin: 11/21/18 20:32 Dose: 0.5 mg Hydromorphone HCl (Dilaudid) 1 mg IVPUSH ONETIME ONE Stop: 11/21/18 21:23 Last Admin: 11/21/18 21:31 Dose: 1 mg Hydromorphone HCl (Dilaudid Global Climate Change Analyst 15 Mg In Ns 30 Ml) 0 mg IV ASDIRECTED PRN; Protocol PRN Reason: FAST FOOD TEAM MEMBER PAIN CONTROL Last Admin: 11/22/18 01:18 Dose: 15 mg Sodium Chloride (Normal Saline) 1,000 mls @ 999 mls/hr IV ASDIRECTED [facility] Last Admin: 11/21/18 20:18 Dose: 999 mls/hr Sodium Chloride (Normal Saline) 1,000 mls @ 999 mls/hr IV ASDIRECTED [facility] Last Admin: 11/22/18 00:28 Dose: 250 mls/hr Sodium Chloride (Normal Saline) 80 mls @ 3 mls/sec IV ASDIRECTED [facility] Last Admin: 11/21/18 21:51 Dose: 3 mls/sec Ceftriaxone Sodium 1 gm/ (Sodium Chloride) 50 mls @ 100 mls/hr IV ONETIME ONE Stop: 11/22/18 00:12 Last Admin: 11/22/18 00:27 Dose: 100 mls/hr Sodium Chloride (Normal Saline) 1,000 mls @ 250 mls/hr IV ASDIRECTED [facility] Last Admin: 11/22/18 02:07 Dose: 250 mls/hr Dextrose/Lactated Ringer's (Dextrose 5%-Lactated Ringers) 1,000 mls @ 100 mls/ hr IV ASDIRECTED [facility] Last Admin: 11/23/18 05:04 Dose: 100 mls/hr Multivitamins/Minerals 10 ml/Chromium/Copper/Manganese/Seleni/Zn 1 ml/ Dextrose/ Lactated Ringer's 1,011 mls @ 100 mls/hr IV Q10H [facility] Stop: 11/23/18 03:59 Last Admin: 11/22/18 18:31 Dose: 100 mls/hr Iopamidol (Isovue-300 (61%)) 100 ml IV . DIRECTED [facility] Last Admin: 11/21/18 21:51 Dose: 100 ml Naloxone HCl (Narcan) 0.1 mg IV ASDIRECTED PRN PRN Reason: decreased respiratory rate Ondansetron HCl (Zofran) 4 mg IVPUSH ONETIME ONE Stop: 11/21/18 20:01 Last Admin: 11/21/18 20:31 Dose: 4 mg Sodium Chloride (Saline Flush) 10 ml FLUSH ASDIRECTED PRN PRN Reason: Keep Vein Open Last Admin: 11/21/18 21:51 Dose: 10 ml - Exam General: Alert, Oriented, Cooperative, No Acute Distress Lungs: Clear to Auscultation, Normal Respiratory Effort Cardiovascular: Regular Rate, Regular Rhythm, No Murmurs Consult PN Assessment/Plan Procedures: Procedures ASSAY OF LIPASE (12/17/17) C DIFF AMPLIFIED PROBE (01/14/18) COMPLETE CBC AUTOMATED (12/17/17) COMPREHEN METABOLIC PANEL (12/17/17) CT ABD & PELV W/CONTRAST (01/14/18) EMERGENCY DEPT VISIT (12/17/17) HYDRATE IV INFUSION ADD-ON (12/17/17) ROUTINE VENIPUNCTURE (12/17/17) THER/PROPH/DIAG INJ IV PUSH (12/17/17) TX/PRO/DX INJ NEW DRUG ADDON (12/17/17) TX/PRO/DX INJ SAME DRUG VOCATIONAL GUIDANCE COUNSELOR (12/17/17) Problem List Initiated/Reviewed/Updated: Yes My Orders Last 24 Hours: My Active Orders 11/22/18 18:25 Sodium Chloride 0.9% [Saline Flush] 10 ml FLUSH ASDIRECTED PRN 11/22/18 18:30 Iopamidol [Isovue-370 (76%)] 100 ml IV . DIRECTED Sodium Chloride 0.9% [Normal Saline] 100 ml IV ASDIRECTED Plan: ASSESSMENT AND RECOMMENDATIONS LEFT LOWER LOBE INFILTRATE NOTED ON ABDOMINAL CT SCAN-similar infiltrate noted on previous CT scan 2-1/2 weeks ago and she completed a 7 day course of levofloxacin. Infiltrate does not appear to be significantly changed over the past 2-1/2 weeks and is relatively small. She has noted symptoms of dyspnea over the past few weeks but denies cough or sputum production. CT angios of the chest was obtained and continues to show the infiltrate , no evidence of PE or other significant pulmonary abnormality identified. CT scans reviewed by life skills teacher technical assistance consultant in [place], findings felt to be consistent with previous pneumonia. No further intervention, evaluation, or follow-up recommended. Reviewed findings and recommendations with patient and family. HEALING ABDOMINAL WOUND -Management per Dr. Sánchez
--- NOTE | 2018-11-23 16:09 | PN ---
DATE OF SERVICE: 11/22/2018 The patient was admitted overnight with some abdominal pain, generalized weakness, and CT scan showing possible infiltrate in the left lower lobe. The patient is status post recent laparoscopy converted to laparotomy with revision of the jejunojejunostomy and repair of recurrent incarcerated incisional hernia. No mesh was used. She does have a small open area in her abdominal wall adjacent to the umbilicus that does not appear to be infected. She had recent urinary tract infection. UA obtained in the emergency room showed only 0 to 5 wbc's and negative nitrites, so there is no evidence of recurrent UTI. Examination shows her to be fairly comfortable. Her abdomen is completely soft and nondistended. The open area again appeared to be noninfected, and we will treat that with dressing changes. With regard to the lower lobe infiltrate and the patient's sense of weakness, we will ask Dr. Pinto to see the patient, to see if there is an indication for antibiotics. Otherwise, we will broaden out some of the labs that were drawn last night and make corrections as needed as the day goes by. We will switch her over to oral pain medication today, and we will continue with step-3 gastric bypass diet. Joseph Sánchez MD /[id number]
--- NOTE | 2018-11-24 07:33 | DISCH ---
ADMISSION DIAGNOSES: 1. Dehydration. 2. 1 inch open area surgical incision. 3. Left lower lobe infiltrate, resolved. 4. Status post Gilson-en-Y gastric bypass surgery. 5. Unspecified surgical malabsorption. 6. B12 deficiency. DISCHARGE DIAGNOSIS: 1. Dehydration, resolved. 2. Status post small bowel resection 11/09/2018. 3. Status post left lower lobe pulmonary infiltrate. 4. 1 inch area of open abdominal incision. HISTORY: Amy Meza is a 38-year-old female who had a partial small bowel obstruction, open procedure on 11/09/2018. She was last seen in the clinic on 11/17/2018. Her sutures were removed and Steri-Strips applied. She did see her primary care provider on 11/18/2018 for urinary tract infection and was started on Keflex and the small area of open incision. She called on the clinic on 11/21/2018 around 4:50 p.m. stating that her incision was open. She could see the deep stitches and was having an increasing abdominal pain, low-grade fever and was having an increase in pain in the left upper and left lower abdomen. She presented to the ER at [place], [place] at around 8:00 p.m. She was evaluated and admitted to the hospital for dehydration, possible wound infection, left lower lobe pulmonary infiltrate. She had an Internal Medicine/Hospitalist consult. Abdomen and pelvic CT were unremarkable. A CT angiogram of the chest showed no evidence of pulmonary emboli and subtle patchy infiltrates in the left lower lobe, which did not require any antibiotics. Amy received Dilaudid 4 mg and she took it approximately every 4 hours for the abdominal pain. Her dressing over the open incision was changed twice daily. She was up ambulating. Bowel movements were good. Oral intake adequate and afebrile. 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 She originally on admission had [place] 5/325 mg and she took 2 every 4 hours, which did not adequately cover her pain as well. Amy requested to be discharged to home. REVIEW OF SYSTEMS: CONSTITUTIONAL: No fever, chills, night sweats, or fatigue. HEENT: Negative. NECK: Negative. CHEST: No fast or irregular heart beats, palpitations, swelling in ankles. LUNGS: No cough or shortness of breath. ABDOMEN: Pain remains in left upper and lower quadrant and in open incision area. Appetite good, urinating without difficulty and having a bowel movements. GENITOURINARY: Negative. EXTREMITIES: No joint pain, swelling, or edema. NEURO: Negative. Mood and affect appropriate. Remainder of review of systems negative for any pertinent positives and negatives. OBJECTIVE: GENERAL: Amy Meza is a 38-year-old female. VITAL SIGNS: Height is 5 feet 1.81 inches, weight is 143 pounds. TPR 99, 82, 12. Blood pressure 132/76. HEENT: Negative. NECK: Supple. HEART: Regular rate and rhythm. LUNGS: Clear. ABDOMEN: There is a 1 inch area midline incision. It is very superficial by the umbilicus. EXTREMITIES: Negative. NEURO: Intact. SKIN: Without rash. PSYCHIATRIC: Mood and affect appropriate. DISPOSITION: Discharged to home. CONDITION: Stable and improving. MEDICATIONS: Resume home medications; Charlotte 5/325 mg 1 to 2 every 4 hours p.r.n. pain, vitamin B complex 1 daily, Venlafaxine ER 150 mg p.o. daily, multivitamin chewable b.i.d., Zofran 4 mg ODT every 4 hours p.r.n. nausea, Tylenol 650 every 4 hours p.r.n. pain and Xanax 2 mg p.o. at bedtime. FOLLOWUP APPOINTMENT: With Tomasa Cadena PA-C, on 11/30/2018 at 11:00 a.m. DIET: Usual diet as tolerated. Drink 8 to 10 glasses of water a day. ACTIVITY: No lifting greater than 10 pounds for 4 more weeks. Driving, do not drive while on narcotic pain medications. May shower. Keep operative site clean and dry. Change dressing on open part of incision twice a day. DISCHARGE INSTRUCTIONS: Notify provider if any fever, increased pain, nausea, or vomiting.
== END 2018-11-23 15:22 | disposition home or self-care (01) | DRG 641 ==
LOC: JP.ED 18:51 → JP.MS 23:53 → OBSVTOIN 11-22 07:05
PROVIDERS: ADMIT Surgery; ATTEND Surgery
DX: E86.0 Dehydration (principal); K91.2 Postsurgical malabsorption, not elsewhere classified; S31.109A Unspecified open wound of abdominal wall, unspecified quadrant without penetration into peritoneal cavity, initial encounter; Z98.890 Other specified postprocedural states; F17.210 Nicotine dependence, cigarettes, uncomplicated; R91.8 Other nonspecific abnormal finding of lung field; Z98.84 Bariatric surgery status; Z98.0 Intestinal bypass and anastomosis status; F32.9 Major depressive disorder, single episode, unspecified; F41.9 Anxiety disorder, unspecified; Z87.440 Personal history of urinary (tract) infections; Z87.01 Personal history of pneumonia (recurrent); H54.7 Unspecified visual loss; Z90.49 Acquired absence of other specified parts of digestive tract; Z88.5 Allergy status to narcotic agent; Z88.0 Allergy status to penicillin; Z91.048 Other nonmedicinal substance allergy status; E53.8 Deficiency of other specified B group vitamins; Y92.009 Unspecified place in unspecified non-institutional (private) residence as the place of occurrence of the external cause
CPT/HCPCS: 36415; 71275; 74177; 80053; 81001; 82607; 82728; 82746; 83605; 83735; 84100; 84425; 85025; 85027; 86140; 87070; 87205; 96361; 96374; 96375; 96376; 99285-25; A9270-GY; J0696; J1170; J2405; J7030; J7042; J7050; Q9967

== ENCOUNTER 2018-12-04 15:37 | Emergency (ER) | payer MEDICAID ==
--- NOTE | 2018-12-04 18:27 | EDM.PDOC ---
ED HPI GENERAL MEDICAL PROBLEM - General Chief Complaint: Abdominal Pain Stated Complaint: ABD PAIN Time Seen by Provider: 12/04/18 18:01 Source of Information: Reports: Patient, Family, Old Records, RN Notes Reviewed History Limitations: Reports: No Limitations - History of Present Illness INITIAL COMMENTS - FREE TEXT/NARRATIVE: 38-year-old female presents to the emergency department day complaint of abdominal pain, she has known history of gastric bypass was recently admitted to the hospital here for abdominal pain underwent surgical intervention approximately 2 weeks ago has had visits to the emergency department as well as her primary care for ongoing abdominal pain CT scan done 5 days prior shows no acute process lab work at that time also no acute process, pelvic ultrasound done as well shows no acute process. She describes the pain as intermittent it does become sharp stabbing when it is positional it is mainly in the right upper quadrant she has use hydrocodone for pain control with minimal relief she does have follow-up appointment with her gastric bypass surgeon in 2 days Left Lower Abdominal Pain Score (Numeric/FACES): 8 - Related Data Allergies Allergy/AdvReac Type Severity Reaction Status Date / Time Penicillins Allergy Hives Verified 12/04/18 16:31 propoxyphene AdvReac Cannot Verified 12/04/18 16:31 [From Misty-Cj] Remember sierra surgical Allergy Severe infection Uncoded 12/04/18 16:31 Home Meds: Home Meds ALPRAZolam [Xanax] 2 mg PO BEDTIME 08/12/17 [History] Venlafaxine HCl [Venlafaxine ER] 150 mg PO DAILY 08/13/17 [History] Cholecalciferol (Vitamin D3) [Vitamin D3] 5,000 unit PO DAILY 08/16/17 [History] Cyanocobalamin (Vitamin B-12) [Vitamin B-12] 1,000 mcg SL DAILY 08/16/17 [ History] Ped Multivit #38/Iron Fumarate [Hm Animal Shapes Complete Chew] 18 mg PO BID 03/26 [History] Vitamin B Complex [B Complex] 1 each PO DAILY 08/16/17 [History] Acetaminophen [Tylenol] 650 mg PO Q4H PRN tablet 12/24/17 [Rx] Ondansetron [Zofran ODT] 4 mg PO Q4H PRN #30 tab.dis 12/24/17 [Rx] Acetaminophen [Tylenol Extra Strength] 500 mg PO Q6H PRN tablet 11/11/18 [Rx] Acetaminophen/HYDROcodone [[place] 325-5 MG] 1 - 2 tab PO Q6H PRN #50 tablet 11/11 [Rx] Past Medical History HEENT History: Reports: Impaired Vision, Other (See Below) Other HEENT History: "10% hearing left ear" Respiratory History: Reports: Pneumonia, Recurrent Gastrointestinal History: Reports: Bowel Obstruction, Cholelithiasis Genitourinary History: Reports: UTI, Recurrent 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 Psychiatric History: Reports: Anxiety, Depression Endocrine/Metabolic History: Reports: Obesity/BMI 30+ Hematologic History: Reports: B12 Deficiency, Blood Transfusion(s) Other Dermatologic History: draining wound abd - Infectious Disease History Infectious Disease History: Reports: Chicken Pox - Past Surgical History HEENT Surgical History: Reports: Myringotomy w Tube(s), Other (See Below) Other HEENT Surgeries/Procedures: skin grafting with ear drum repair GI Surgical History: Reports: Bariatric Procedure, Cholecystectomy, Colon, EGD, Hernia Repair/Other, Lysis of Adhesions, Small Bowel Female Surgical History: Reports: Hysterectomy, Tubal Ligation, Other (See Below) Other Female Surgeries/Procedures: "partial hysterectomy" Endocrine Surgical History: Reports: None Neurological Surgical History: Reports: None Musculoskeletal Surgical History: Reports: None Social & Family History - Family History Family Medical History: Noncontributory - Tobacco Use Smoking Status *Q: Current Every Day Smoker Years of Tobacco use: 10 Packs/Tins Daily: 0.2 Used Tobacco, but Quit: No Second Hand Smoke Exposure: Yes - Caffeine Use Caffeine Use: Reports: Soda - Recreational Drug Use Recreational Drug Use: No ED ROS GENERAL - Review of Systems Review Of Systems: See Below Constitutional: Reports: No Symptoms HEENT: Reports: No Symptoms Respiratory: Reports: No Symptoms Cardiovascular: Reports: No Symptoms GI/Abdominal: Reports: Abdominal Pain, Nausea. Denies: Constipation, Diarrhea, Vomiting : Reports: No Symptoms ED EXAM, GI/ABD - Physical Exam Exam: See Below Exam Limited By: No Limitations General Appearance: Alert, WD/WN, No Apparent Distress Respiratory/Chest: No Respiratory Distress GI/Abdominal Exam: Normal Bowel Sounds, Soft, Tender (Generalized) Course - Vital Signs Last Recorded V/S: Last Vital Signs Temp 96.6 F 12/04/18 16:42 Pulse 78 12/04/18 16:42 Resp 16 12/04/18 16:42 BP 123/84 12/04/18 16:42 Pulse Ox 97 12/04/18 16:42 Departure - Departure Time of Disposition: 18:26 Disposition: Home, Self-Care 01 Condition: Poor Clinical Impression: Abdominal pain Qualifiers: Abdominal location: generalized Qualified Code(s): R10.84 - Generalized abdominal pain - Discharge Information Referrals: Joseph Sánchez MD [Primary Care Provider] - Additional Instructions: Please keep your appointment with Dr. Sánchez on Wednesday, use Percocet as needed for pain control, call return to the emergency department worsening of symptoms - Assessment/Plan Plan: Assessment Acuity = chronic Site and laterality = abdominal pain complicated in the gastric bypass patient Etiology = unclear etiology Manifestations = none Location of injury = Home Lab values = none Plan Called discussed case with Dr. Sánchez at 1820 recommending changing pain medications to Percocet and then keep follow-up appointment in 2 days no further lab work or imaging studies at this time This note was dictated using [employer] voice recognition software please call with any questions on syntax or grammar.
== END 2018-12-04 18:41 | disposition home or self-care (01) ==
LOC: JP.ED 15:37
DX: R10.84 Generalized abdominal pain (principal); Z98.84 Bariatric surgery status; F17.210 Nicotine dependence, cigarettes, uncomplicated; F41.9 Anxiety disorder, unspecified; F32.9 Major depressive disorder, single episode, unspecified; Z79.899 Other long term (current) drug therapy; Z88.0 Allergy status to penicillin; Z88.8 Allergy status to other drugs, medicaments and biological substances; Z91.09 Other allergy status, other than to drugs and biological substances
CPT/HCPCS: 99283

== ENCOUNTER 2019-11-06 13:22 | Emergency (ER) | payer MEDICAID, OTHER ==
[2019-11-06] MEDS ORDERED: Sodium Chloride 0.9% 10 ML Syringe FLUSH PRN ×2 (14:23→14:36)
--- NOTE | 2019-11-06 14:28 | EDM.PDOC ---
ED HPI GENERAL MEDICAL PROBLEM - General Chief Complaint: Abdominal Pain Stated Complaint: STOMACH PAIN Time Seen by Provider: 11/06/19 14:18 Source of Information: Reports: Patient, RN Notes Reviewed History Limitations: Reports: No Limitations - History of Present Illness INITIAL COMMENTS - FREE TEXT/NARRATIVE: 39-year-old female presents emergency department with a complaint of abdominal pain, she has had a gastric bypass a couple years ago has had difficulty with nausea and food intake however over the last couple days it has gotten significantly worse she states she will have just a couple bites of food epigastric pain and nausea will increase. She denies any chest pain shortness of breath or fevers no difficulty or change with bowel movements Right Middle Abdomen Pain Score (Numeric/FACES): 9 - Related Data Allergies Allergy/AdvReac Type Severity Reaction Status Date / Time Penicillins Allergy Hives Verified 11/06/19 13:53 propoxyphene AdvReac Cannot Verified 11/06/19 13:53 [From Misty-Cj] Remember [facility] surgical Allergy Severe infection Uncoded 12/04/18 16:31 Home Meds: Home Meds Venlafaxine HCl [Venlafaxine ER] 150 mg PO DAILY 08/13/17 [History] Cholecalciferol (Vitamin D3) [Vitamin D3] 5,000 unit PO DAILY 08/16/17 [History] Cyanocobalamin (Vitamin B-12) [Vitamin B-12] 1,000 mcg SL DAILY 08/16/17 [ History] Pedi Multivit 38/Iron Fumarate [Hm Animal Shapes Complete Chew] 18 mg PO BID 03/26 [History] Vitamin B Complex [B Complex] 1 each PO DAILY 08/16/17 [History] Acetaminophen [Tylenol] 650 mg PO Q4H PRN tablet 12/24/17 [Rx] Acetaminophen [Tylenol Extra Strength] 500 mg PO Q6H PRN tablet 11/11/18 [Rx] ALPRAZolam [Xanax] 1 mg PO BEDTIME 11/06/19 [History] Past Medical History HEENT History: Reports: Impaired Vision, Other (See Below) Other HEENT History: "10% hearing left ear" Respiratory History: Reports: Pneumonia, Recurrent Gastrointestinal History: Reports: Bowel Obstruction, Cholelithiasis Genitourinary History: Reports: UTI, Recurrent 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 Neurological History: Reports: Other (See Below) Other Neuro History: patient reports "seizure" recently and did not go to the hospital or get follow up. Psychiatric History: Reports: Anxiety, Depression Endocrine/Metabolic History: Reports: Obesity/BMI 30+ Hematologic History: Reports: B12 Deficiency, Blood Transfusion(s) Other Dermatologic History: draining wound abd - Infectious Disease History Infectious Disease History: Reports: Chicken Pox - Past Surgical History HEENT Surgical History: Reports: Myringotomy w Tube(s), Other (See Below) Other HEENT Surgeries/Procedures: skin grafting with ear drum repair GI Surgical History: Reports: Bariatric Procedure, Cholecystectomy, Colon, EGD, Hernia Repair/Other, Lysis of Adhesions, Small Bowel Female Surgical History: Reports: Hysterectomy, Tubal Ligation, Other (See Below) Other Female Surgeries/Procedures: "partial hysterectomy" Social & Family History - Family History Family Medical History: Noncontributory - Tobacco Use Smoking Status *Q: Current Some Day Smoker Years of Tobacco use: 20 Packs/Tins Daily: 0 - Caffeine Use Caffeine Use: Reports: Soda Other Caffeine Use: 2 pop per day - Recreational Drug Use Recreational Drug Use: Yes Recreational Drug Type: Reports: Marijuana/Hashish ED ROS GENERAL - Review of Systems Review Of Systems: See Below Constitutional: Denies: Fever, Chills HEENT: Reports: No Symptoms Respiratory: Reports: No Symptoms Cardiovascular: Reports: No Symptoms GI/Abdominal: Reports: Abdominal Pain, Flatus, Nausea. Denies: Constipation, Diarrhea, Vomiting : Reports: No Symptoms ED EXAM, GI/ABD - Physical Exam Exam: See Below Exam Limited By: No Limitations General Appearance: Alert, WD/WN, No Apparent Distress Respiratory/Chest: No Respiratory Distress, Lungs Clear, Normal Breath Sounds, No Accessory Muscle Use, Chest Non-Tender Cardiovascular: Regular Rate, Rhythm, No Murmur GI/Abdominal Exam: Normal Bowel Sounds, Soft, No Organomegaly, No Distention, No Abnormal Bruit, Tender (Epigastric region) Back Exam: Normal Inspection, Full Range of Motion. No: CVA Tenderness (R), CVA Tenderness (L) Course - Vital Signs Last Recorded V/S: Last Vital Signs Temp 97.9 F 03/30/20 13:52 Pulse 78 11/06/19 13:52 Resp 17 11/06/19 13:52 BP 132/83 11/06/19 13:52 Pulse Ox 94 L 11/06/19 13:52 - Orders/Labs/Meds Orders: Active Orders 24 hr Category Date Time Status Peripheral IV Care [RC] . DIRECTED Care 11/06/19 14:23 Active Iopamidol [Isovue-300 (61%)] Med 11/06/19 14:45 Active 116 ml IV . DIRECTED Lactated Ringers [Ringers, Lactated] 1,000 ml Med 11/06/19 14:30 Active IV ASDIRECTED Sodium Chloride 0.9% [Saline Flush] Med 11/06/19 14:23 Active 10 ml FLUSH ASDIRECTED PRN Sodium Chloride 0.9% [Saline Flush] Med 11/06/19 14:36 Active 10 ml FLUSH ONETIME PRN Peripheral IV Insertion Adult [OM.PC] Urgent Oth 11/06/19 14:23 Ordered Medication Orders Lactated Ringer's (Ringers, Lactated) 1,000 mls @ 999 mls/hr IV ASDIRECTED [facility] Last Admin: 11/06/19 15:05 Dose: 999 mls/hr Iopamidol (Isovue-300 (61%)) 116 ml IV . DIRECTED [facility] Last Admin: 11/06/19 14:56 Dose: 116 ml Sodium Chloride (Saline Flush) 10 ml FLUSH ASDIRECTED PRN PRN Reason: Keep Vein Open Sodium Chloride (Saline Flush) 10 ml FLUSH ONETIME PRN PRN Reason: PER RADIOLOGY PROTOCOL Last Admin: 11/06/19 14:54 Dose: 10 ml Labs: Laboratory Tests 11/06/19 11/06/19 11/06/19 Range/Units 14:30 14:30 14:30 WBC 7.4 (4.5-11.0) K/uL RBC 3.99 (3.30-5.50) M/uL Hgb 9.7 L (12.0-15.0) g/dL Hct 33.0 L (36.0-48.0) % MCV 83 (80-98) fL MCH 24 L (27-31) pg MCHC 29 L (32-36) % Plt Count 366 (150-400) K/uL Neut % (Auto) 54 (36-66) % Lymph % (Auto) 37 (24-44) % [place] % (Auto) 7 H (2-6) % Eos % (Auto) 1 L (2-4) % Baso % (Auto) 1 (0-1) % Sodium 142 (140-148) mmol/L Potassium 4.2 (3.6-5.2) mmol/L Chloride 106 (100-108) mmol/L Carbon Dioxide 26 (21-32) mmol/L Anion Gap 10.5 (5.0-14.0) mmol/L BUN 6 L (7-18) mg/dL Creatinine 0.6 (0.6-1.0) mg/dL Est Cr Clr Drug Dosing 100.55 mL/min Estimated GFR (MDRD) > 60 (>60) Glucose 84 (74-106) mg/dL Lactic Acid 1.2 (0.4-2.0) mmol/L Calcium 8.1 L (8.5-10.1) mg/dL Total Bilirubin 0.2 D (0.2-1.0) mg/dL AST 21 (15-37) U/L ALT 28 (12-78) U/L Alkaline Phosphatase 65 (46-116) U/L Total Protein 6.1 L (6.4-8.2) g/dL Albumin 3.2 L (3.4-5.0) g/dL Globulin 2.9 (2.3-3.5) g/dL Albumin/Globulin Ratio 1.1 L (1.2-2.2) Lipase 90 (73-393) U/L Urine Color (YELLOW) Urine Appearance (CLEAR) Urine pH (5.0-8.0) Ur Specific [place] (1.008-1.030) Urine Protein (NEGATIVE) mg/dL Urine Glucose (UA) (NEGATIVE) mg/dL Urine Ketones (NEGATIVE) mg/dL Urine Occult Blood (NEGATIVE) Urine Nitrite (NEGATIVE) Urine Bilirubin (NEGATIVE) Urine Urobilinogen (0.2-1.0) EU/dL Ur Leukocyte Esterase (NEGATIVE) Urine RBC (0-5) Urine WBC (0-5) Ur Epithelial Cells Amorphous Sediment Urine Bacteria Urine Mucus Urine HCG, Qual 11/06/19 11/06/19 Range/Units 15:04 15:04 WBC (4.5-11.0) K/uL RBC (3.30-5.50) M/uL Hgb (12.0-15.0) g/dL Hct (36.0-48.0) % MCV (80-98) fL MCH (27-31) pg MCHC (32-36) % Plt Count (150-400) K/uL Neut % (Auto) (36-66) % Lymph % (Auto) (24-44) % [place] % (Auto) (2-6) % Eos % (Auto) (2-4) % Baso % (Auto) (0-1) % Sodium (140-148) mmol/L Potassium (3.6-5.2) mmol/L Chloride (100-108) mmol/L Carbon Dioxide (21-32) mmol/L Anion Gap (5.0-14.0) mmol/L BUN (7-18) mg/dL Creatinine (0.6-1.0) mg/dL Est Cr Clr Drug Dosing mL/min Estimated GFR (MDRD) (>60) Glucose (74-106) mg/dL Lactic Acid (0.4-2.0) mmol/L Calcium (8.5-10.1) mg/dL Total Bilirubin (0.2-1.0) mg/dL AST (15-37) U/L ALT (12-78) U/L Alkaline Phosphatase (46-116) U/L Total Protein (6.4-8.2) g/dL Albumin (3.4-5.0) g/dL Globulin (2.3-3.5) g/dL Albumin/Globulin Ratio (1.2-2.2) Lipase (73-393) U/L Urine Color Yellow (YELLOW) Urine Appearance Clear (CLEAR) Urine pH 7.0 (5.0-8.0) Ur Specific [place] 1.015 (1.008-1.030) Urine Protein Negative (NEGATIVE) mg/dL Urine Glucose (UA) Negative (NEGATIVE) mg/dL Urine Ketones Negative (NEGATIVE) mg/dL Urine Occult Blood Negative (NEGATIVE) Urine Nitrite Negative (NEGATIVE) Urine Bilirubin Negative (NEGATIVE) Urine Urobilinogen 0.2 (0.2-1.0) EU/dL Ur Leukocyte Esterase Negative (NEGATIVE) Urine RBC 0-5 (0-5) Urine WBC 0-5 (0-5) Ur Epithelial Cells Rare Amorphous Sediment Not seen Urine Bacteria Not seen Urine Mucus Not seen Urine HCG, Qual Negative Meds: Medications Generic Name Dose Route Start Last Admin Trade Name Freq PRN Reason Stop Dose Admin Lactated Ringer's 1,000 mls @ 999 mls/hr 11/06/19 14:30 11/06/19 15:05 Ringers, Lactated IV 999 mls/hr ASDIRECTED TOMAS Administration Iopamidol 116 ml 11/06/19 14:45 11/06/19 14:56 Isovue-300 (61%) IV 116 ml . DIRECTED TOMAS Administration Sodium Chloride 10 ml 11/06/19 14:23 Saline Flush FLUSH ASDIRECTED PRN Keep Vein Open Sodium Chloride 10 ml 11/06/19 14:36 11/06/19 14:54 Saline Flush FLUSH 10 ml ONETIME PRN Administration PER RADIOLOGY PROTOCOL Discontinued Medications Generic Name Dose Route Start Last Admin Trade Name Freq PRN Reason Stop Dose Admin Sodium Chloride 75 mls @ 3 mls/sec 11/06/19 14:36 11/06/19 14:55 Normal Saline IV 11/06/19 14:37 3 mls/sec ONETIME ONE Administration Departure - Departure Time of Disposition: 16:13 Disposition: Home, Self-Care 01 Condition: Fair Clinical Impression: Abdominal pain Qualifiers: Abdominal location: epigastric Qualified Code(s): R10.13 - Epigastric pain - Discharge Information Instructions: Upper Endoscopy, Adult Referrals: Joseph Sánchez MD [Primary Care Provider] - Forms: ED Department Discharge Additional Instructions: Please report to the outpatient surgery center tomorrow for procedure with Dr. Sánchez, use hydrocodone as needed for pain control call or return to the emergency department worsening of symptoms Sepsis Event Note - Evaluation Sepsis Screening Result: No Definite Risk - Focused Exam Vital Signs: Vital Signs Temp Pulse Resp BP Pulse Ox 11/06/19 13:52 97.9 F 78 17 132/83 94 L 11/06/19 13:51 97.9 F 78 17 132/83 94 L Date Exam was Performed: 11/06/19 Time Exam was Performed: 16:11 - My Orders Last 24 Hours: My Active Orders 11/06/19 14:23 Peripheral IV Care [RC] . DIRECTED Sodium Chloride 0.9% [Saline Flush] 10 ml FLUSH ASDIRECTED PRN Peripheral IV Insertion Adult [OM.PC] Urgent 11/06/19 14:30 Lactated Ringers [Ringers, Lactated] 1,000 ml IV ASDIRECTED 11/06/19 14:36 Sodium Chloride 0.9% [Saline Flush] 10 ml FLUSH ONETIME PRN 11/06/19 14:45 Iopamidol [Isovue-300 (61%)] 116 ml IV . DIRECTED - Assessment/Plan Last 24 Hours: My Active Orders 11/06/19 14:23 Peripheral IV Care [RC] . DIRECTED Sodium Chloride 0.9% [Saline Flush] 10 ml FLUSH ASDIRECTED PRN Peripheral IV Insertion Adult [OM.PC] Urgent 11/06/19 14:30 Lactated Ringers [Ringers, Lactated] 1,000 ml IV ASDIRECTED 11/06/19 14:36 Sodium Chloride 0.9% [Saline Flush] 10 ml FLUSH ONETIME PRN 11/06/19 14:45 Iopamidol [Isovue-300 (61%)] 116 ml IV . DIRECTED Plan: Assessment Acuity = acute Site and laterality = epigastric abdominal pain complicated the patient with known history of gastric bypass Etiology = unknown Manifestations = nausea Location of injury = Home Lab values = CBC, CMP, lactic acid and urinalysis unremarkable CT scan shows no acute process Plan Discussed case Dr. Sánchez at 1600 recommended EGD with possible dilatation plan procedure with him tomorrow morning, outpatient surgery will set this up, hydrocodone 5/325 1 tab p.o. 3 times daily PRN total #10 provided for pain control This note was dictated using [employer] voice recognition software please call with any questions on syntax or grammar.
[2019-11-06] MEDS ORDERED: Lactated Ringers 1,000 ML IV SCH (14:30)
[2019-11-06] MEDS ORDERED: Sodium Chloride 0.9% 75 ML IV ONE (14:36)
[2019-11-06] MEDS ORDERED: Iopamidol 612 MG/ML 150 ML Bottle IV SCH (14:45)
--- NOTE | 2019-11-06 15:23 | CRLCT ---
INDICATION: Pain COMPARISON: November 21, 2018 TECHNIQUE: CT examination of the abdomen and pelvis was performed following the uneventful intravenous administration of 100 cc of Isovue-300. Thin section axial images were obtained from the lung bases through the pubic symphysis. Oral contrast was not administered. Please note that all CT scans at this facility use dose modulation, iterative reconstruction, and/or weight-based dosing when appropriate to reduce radiation dose to as low as reasonably achievable. FINDINGS: LUNG BASES: The lung bases as visualized appear normal.The heart size is normal at the lung bases. LIVER/BILIARY SYSTEM:There are several tiny low-density lesions that are too small to characterize but likely cysts. These are unchanged since the prior study. The gallbladder surgically absent. There is no biliary ductal dilatation. ADRENALS: Normal KIDNEYS, URETERS and BLADDER:The kidneys appear normal. No visible mass, calculus or hydronephrosis. The ureters and bladder as visualized appear normal. SPLEEN:Normal appearance. PANCREAS: Appears normal. RETROPERITONEUM and MESENTERY: There is no mass, adenopathy or aortic aneurysm. GASTROINTESTINAL SYSTEM: Extensive surgical changes involving the esophagogastric junction, small bowel and large bowel. There is fecal retention especially in the rectosigmoid area but there is no evidence of large bowel or small bowel obstruction. PELVIS: Bilateral complex cystic adnexal masses. The right 1 measures 5.6 x 4.1 by 3.9 centimeters and the left 1 measures 5.6 x 3.9 by 4.2 centimeters. Correlation with sonography is advised. The bladder is distended. The uterus is not visible and presumably surgically absent. OSSEOUS STRUCTURES and ABDOMINAL WALL: There is an age-appropriate appearance of the osseous structures.Extensive postoperative changes of the anterior abdominal wall OTHER: No free fluid or free air. IMPRESSION: 1. Tiny low density hepatic lesions likely cysts unchanged. Gallbladder surgically absent. No biliary ductal dilatation. 2. Extensive postoperative changes involving the EG junction, small bowel and large bowel. Fecal retention. However, there is no evidence of complication of gastric bypass, small-bowel obstruction, large bowel obstruction or other acute GI finding. 3. Bilateral complex cystic adnexal lesions presumably right ovarian in origin. Correlation with sonography is advised for further evaluation. 4. Other incidental findings as discussed above. Please note that all CT scans at this facility use dose modulation, iterative reconstruction, and/or weight-based dosing when appropriate to reduce radiation dose to as low as reasonably achievable. Dictated by Joseph Wood MD @ Nov 06 2019 3:14PM Signed by Dr. Joseph Wood @ Nov 06 2019 3:22PM
== END 2019-11-06 16:42 | disposition home or self-care (01) ==
LOC: JP.ED 13:22
DX: R10.13 Epigastric pain (principal); F41.9 Anxiety disorder, unspecified; F32.9 Major depressive disorder, single episode, unspecified; E66.9 Obesity, unspecified; Z68.31 Body mass index [BMI] 31.0-31.9, adult; Z90.49 Acquired absence of other specified parts of digestive tract; F17.210 Nicotine dependence, cigarettes, uncomplicated; Z88.0 Allergy status to penicillin; Z88.8 Allergy status to other drugs, medicaments and biological substances; Z91.048 Other nonmedicinal substance allergy status; Z79.899 Other long term (current) drug therapy
CPT/HCPCS: 36415; 74177; 80053; 81001; 81025; 83605; 83690; 85025; 96360; 99284; J7050; J7120; Q9967

== ENCOUNTER 2019-11-07 06:05 | Day surgery (SDC) | payer MEDICAID, OTHER ==
[2019-11-07] MEDS ORDERED: Lactated Ringers 1,000 ML IV ONE (07:06)
[2019-11-07] MEDS ORDERED: Cyanocobalamin (Vitamin B12) 1,000 MCG/ML SDV IM ONE (07:06)
[2019-11-07] MEDS ORDERED: Glycopyrrolate 0.2 MG/ML 2 ML SDV IVPUSH ONE (07:06)
[2019-11-07] MEDS ORDERED: HYDROmorphone 1 MG/ML Syringe IVPUSH PRN (07:31)
[2019-11-07] MEDS ORDERED: Midazolam 1 MG/ML 2 ML SDV ONE (07:42)
[2019-11-07] MEDS ORDERED: fentaNYL 100 MCG/2 ML SDV ONE (07:42)
[2019-11-07] MEDS ORDERED: Propofol 200 MG/20 ML SDV ONE (07:42)
[2019-11-07] MEDS ORDERED: MVI, Adult with Vitamin K 10 ML, Thiamine 200 MG, Chromium/Copper/Mang/Selen/Zn 1 ML in... IV ONE ×4 (08:00)
[2019-11-07] MEDS ORDERED: Pantoprazole 40 MG Vial IVPUSH ONE (09:18)
[2019-11-07] MEDS ORDERED: hydrOXYzine HCL 100 MG/2 ML SDV IM ONE (09:38)
--- NOTE | 2019-11-13 13:16 | OR ---
DATE OF PROCEDURE: 11/07/2019 SURGEON: Joseph Sánchez MD PREOPERATIVE DIAGNOSES: Epigastric discomfort and nausea. POSTOPERATIVE DIAGNOSES: Epigastric pain and nausea, associated with superficial marginal ulcer. PROCEDURE: Upper GI endoscopy. ANESTHESIA: IV sedation. INDICATION FOR PROCEDURE: The patient is presenting after returning from [place] with some ongoing upper abdominal discomfort and nausea. The patient had been seen in her of the clinic in [place] and they were tentatively planning to reverse the gastric bypass due to chronic discomfort that she has been having. She returned to the [place] area during this present COVID-19 outbreak and presents for followup of those symptoms. Plan is to proceed with upper GI endoscopy with biopsies as indicated. Potential risks including bleeding and perforation were discussed, and the patient wishes to proceed. DETAILS OF THE PROCEDURE: The patient was taken to the operating room and placed in the left lateral decubitus position. IV sedation was administered, after which the upper GI endoscope was passed orally through the length of the esophagus into the gastric pouch, from there through the gastrojejunostomy roughly 20 cm into the Gilson limb. Esophagus and EG junction as well as gastric pouch were all noted to be normal. There was a very superficial marginal ulceration over roughly 1/3 of the circumference of immediately adjacent to the gastrojejunostomy. It was covered with some fibrinous exudate, but no blood or bleeding was seen, and there was no significant narrowing of the gastrojejunostomy. Remaining portion of the Gilson limb was unremarkable. Scope was then withdrawn and the procedure then concluded. The patient was taken to the recovery room in satisfactory condition. The plan will be to give the patient Protonix 40 mg IV in the recovery room and then begin 40 mg daily, and she will be instructed to reconnect with her personal physician in [place] when she returns there, otherwise, on p.r.n. basis prior to that, she can contact us for any ongoing problems related to her bariatric surgery status. Joseph Sánchez MD /[id number]
== END 2019-11-07 11:25 | disposition home or self-care (01) ==
LOC: JP.SDS 06:05
PROVIDERS: ATTEND Surgery
DX: K28.9 Gastrojejunal ulcer, unspecified as acute or chronic, without hemorrhage or perforation (principal); E66.9 Obesity, unspecified; F17.200 Nicotine dependence, unspecified, uncomplicated; Z68.30 Body mass index [BMI] 30.0-30.9, adult
CPT/HCPCS: 43235; C9113; J1170; J2250; J2704; J3010; J3410; J3411; J3420; J3490; J7120

== ENCOUNTER 2019-12-29 18:37 | Emergency (ER) | payer MEDICAID, OTHER ==
[2019-12-29] MEDS ORDERED: HYDROmorphone 0.5 MG/0.5 ML Syringe IVPUSH ONE ×2 (19:44→21:35)
[2019-12-29] MEDS ORDERED: Ondansetron 4 MG/2 ML SDV IVPUSH ONE (19:44)
--- NOTE | 2019-12-29 19:50 | EDM.PDOC ---
ED HPI GENERAL MEDICAL PROBLEM - General Chief Complaint: Abdominal Pain Stated Complaint: ABDOMINAL PAIN, SOB Time Seen by Provider: 12/29/19 19:35 Source of Information: Reports: Patient History Limitations: Reports: No Limitations - History of Present Illness INITIAL COMMENTS - FREE TEXT/NARRATIVE: Amy presents today with complaints of epigastric abdominal pain with worsening the past 4 days. She states the pain is stabbing, causes her SOB and makes her feel like gagging. She denies any vomiting, fever, chills or constipation. She reports chronic diarrhea. She reports she did go to [place] emergency room 4 days ago for pain, had a CT scan was told she has an ulcer and was discharged. She denies fever, chills, or other concerns. Abdominal Pain Score (Numeric/FACES): 3 - Related Data Allergies Allergy/AdvReac Type Severity Reaction Status Date / Time Penicillins Allergy Hives Verified 12/29/19 19:19 propoxyphene AdvReac Cannot Verified 12/29/19 19:19 [From Luis] [facility] Allergy Severe infection Uncoded 12/29/19 19:19 Home Meds: Home Meds Venlafaxine HCl [Venlafaxine ER] 150 mg PO DAILY 08/13/17 [History] Cyanocobalamin (Vitamin B-12) [Vitamin B-12] 1,000 mcg SL DAILY 08/16/17 [ History] Pedi Multivit 38/Iron Fumarate [Hm Animal Shapes Complete Chew] 18 mg PO BID 03/26 [History] Vitamin B Complex [B Complex] 1 each PO DAILY 08/16/17 [History] ALPRAZolam [Xanax] 1 mg PO BEDTIME 11/06/19 [History] Hydrocodone/Acetaminophen [Hydrocodon-Acetaminophen 5-300] 1 each PO Q4HR [History] Past Medical History HEENT History: Reports: Impaired Vision, Other (See Below) Other HEENT History: "10% hearing left ear" Respiratory History: Reports: Pneumonia, Recurrent Gastrointestinal History: Reports: Bowel Obstruction, Cholelithiasis Genitourinary History: Reports: UTI, Recurrent RELATIONSHIP ASSOCIATE History: Reports: Dysfunctional Uterine Bleeding, Fibroids, Polycystic Ovaries, Musculoskeletal History: Reports: Fracture, Other (See Below) Other Musculoskeletal History: right knee "two cysts and meniscus tear". Neurological History: Reports: Seizure Other Neuro History: patient reports "seizure" recently and did not go to the hospital or get follow up. Psychiatric History: Reports: Anxiety, Depression Endocrine/Metabolic History: Reports: Obesity/BMI 30+ Hematologic History: Reports: B12 Deficiency, Blood Transfusion(s) Other Dermatologic History: draining wound abd - Infectious Disease History Infectious Disease History: Reports: Chicken Pox - Past Surgical History HEENT Surgical History: Reports: Myringotomy w Tube(s), Oral Surgery, Other ( See Below) Other HEENT Surgeries/Procedures: skin grafting with ear drum repair Respiratory Surgical History: Reports: None GI Surgical History: Reports: Bariatric Procedure, Cholecystectomy, Colon, EGD, Hernia Repair/Other, Lysis of Adhesions, Small Bowel Female Surgical History: Reports: Hysterectomy, Tubal Ligation, Other (See Below) Other Female Surgeries/Procedures: "partial hysterectomy" Endocrine Surgical History: Reports: None Neurological Surgical History: Reports: None Musculoskeletal Surgical History: Reports: None Social & Family History - Family History Family Medical History: Noncontributory - Tobacco Use Tobacco Use Comment: occ smoker - Caffeine Use Caffeine Use: Reports: Soda Other Caffeine Use: 2 pop per day - Recreational Drug Use Recreational Drug Use: Yes Recreational Drug Type: Reports: Marijuana/Hashish ED ROS GENERAL - Review of Systems Review Of Systems: See Below (EGD completed per Dr. Sánchez on 11/07/2019. showed esophagus and EG junction as well as gastric puch were all noted to be normal. There was a very superficial marginal ulceration over roughly 1/3 of the circumference immediately adjacent to the gastrojejunostomy. No blood or bleeding seen. No significant narrowing of the gastrojejunostomy.) Constitutional: Reports: No Symptoms HEENT: Reports: No Symptoms Respiratory: Reports: Shortness of Breath, Other (with significant pain. ) Cardiovascular: Denies: Chest Pain, Dyspnea on Exertion, Lightheadedness, Palpitations, PND, Syncope Endocrine: Reports: No Symptoms GI/Abdominal: Reports: Abdominal Pain, Diarrhea, Flatus, Nausea, Other (pain is to epigastric area). Denies: Black Stool, Bloody Stool, Constipation, Difficulty Swallowing, Distension, Melena, Stool Incontinence, Vomiting : Reports: No Symptoms Musculoskeletal: Reports: No Symptoms Skin: Reports: No Symptoms Neurological: Reports: No Symptoms Psychiatric: Reports: No Symptoms Hematologic/Lymphatic: Reports: No Symptoms Immunologic: Reports: No Symptoms Free Text/Narrative/Comment: Amy denies use of tobacco. Alcohol use occasionally, last drink last night. ED EXAM, GI/ABD - Physical Exam Exam: See Below Exam Limited By: No Limitations General Appearance: Alert, WD/WN, No Apparent Distress Eyes: Bilateral: Normal Appearance (PERRL) Ears: Normal External Exam, Normal Canal, Hearing Grossly Normal, Normal TMs Throat/Mouth: Normal Inspection, Normal Lips, Normal Teeth, Normal Gums, Normal Oropharynx, Normal Voice, No Airway Compromise Head: Atraumatic, Normocephalic Neck: Normal Inspection, Supple, Non-Tender, Full Range of Motion. No: Lymphadenopathy (R), Lymphadenopathy (L) Respiratory/Chest: No Respiratory Distress, Lungs Clear, Normal Breath Sounds, No Accessory Muscle Use, Chest Non-Tender Cardiovascular: Normal Peripheral Pulses, Regular Rate, Rhythm, No Edema, No Gallop, No Murmur, No Rub GI/Abdominal Exam: Normal Bowel Sounds, Soft, No Distention, No Mass, Guarding, Tender, Other (tenderness and guarding to epigastric area. Tenderness to LUQ with palpation). No: Rigid, Rebound, Hernia Back Exam: Normal Inspection, Full Range of Motion. No: CVA Tenderness (R), CVA Tenderness (L) Extremities: Normal Inspection, Normal Range of Motion, Non-Tender, No Pedal Edema, Normal Capillary Refill, Other (noted multiple small ecchymosis to bilateral legs and arms in different stages of healing. Patiet reports they are from yardwork. ) Neurological: Alert, Normal Cognition, Normal Gait, Normal Reflexes, No Motor/ Sensory Deficits Psychiatric: Normal Affect, Normal Mood Skin Exam: Warm, Dry, Intact, Normal Color, No Rash, Ecchymosis. No: Erythema, Jaundice, Petechiae, Rash Lymphatic: No Adenopathy Course - Vital Signs Last Recorded V/S: Last Vital Signs Temp 36.9 C 12/29/19 19:16 Pulse 91 12/29/19 21:30 Resp 16 12/29/19 20:37 BP 138/88 12/29/19 21:30 Pulse Ox 96 12/29/19 21:30 - Orders/Labs/Meds Orders: Active Orders 24 hr Category Date Time Status Saline Lock Insert [OM.PC] Routine Oth 12/29/19 19:42 Ordered Labs: Laboratory Tests 12/29/19 12/29/19 Range/Units 19:55 19:55 WBC 10.7 (4.5-11.0) K/uL RBC 3.99 (3.30-5.50) M/uL Hgb 10.3 L (12.0-15.0) g/dL Hct 33.6 L (36.0-48.0) % MCV 84 (80-98) fL MCH 26 L (27-31) pg MCHC 31 L (32-36) % Plt Count 430 H (150-400) K/uL Neut % (Auto) 68 H (36-66) % Lymph % (Auto) 25 (24-44) % [place] % (Auto) 7 H (2-6) % Eos % (Auto) 0 L (2-4) % Baso % (Auto) 0 (0-1) % Sodium 130 L (140-148) mmol/L Potassium 3.4 L (3.6-5.2) mmol/L Chloride 97 L (100-108) mmol/L Carbon Dioxide 21 (21-32) mmol/L Anion Gap 15.4 H (5.0-14.0) mmol/L BUN 11 D (7-18) mg/dL Creatinine 1.0 D (0.6-1.0) mg/dL Est Cr Clr Drug Dosing 60.33 mL/min Estimated GFR (MDRD) > 60 (>60) Glucose 69 L (74-106) mg/dL Calcium 7.9 L (8.5-10.1) mg/dL Total Bilirubin 0.5 D (0.2-1.0) mg/dL AST 25 (15-37) U/L ALT 30 (12-78) U/L Alkaline Phosphatase 81 (46-116) U/L C-Reactive Protein 0.10 (0.0-0.3) mg/dL Total Protein 7.1 (6.4-8.2) g/dL Albumin 3.7 (3.4-5.0) g/dL Globulin 3.4 (2.3-3.5) g/dL Albumin/Globulin Ratio 1.1 L (1.2-2.2) Patient lab work reviewed, noted Hgb 10.3, WBC 10.7, sodium 130, Potassium 3.4. Pain has improved after IV dilaudid and zofran. We will complete CT of abdomen/pelvis with IV contrast. Meds: Medications Discontinued Medications Generic Name Dose Route Start Last Admin Trade Name Jeremiah PRN Reason Stop Dose Admin Hydromorphone HCl 0.5 mg 12/29/19 19:44 12/29/19 19:57 Dilaudid IVPUSH 12/29/19 19:45 0.5 mg ONETIME ONE Administration Hydromorphone HCl 0.5 mg 12/29/19 21:35 12/29/19 21:48 Dilaudid IVPUSH 12/29/19 21:36 0.5 mg ONETIME ONE Administration Sodium Chloride 1,000 mls @ 150 mls/hr 12/29/19 20:00 12/29/19 19:59 Normal Saline IV 150 mls/hr ASDIRECTED TOMAS Administration Sodium Chloride 80 mls @ 3 mls/sec 12/29/19 20:45 12/29/19 20:52 Normal Saline IV 3 mls/sec ASDIRECTED TOMAS Administration Iopamidol 100 ml 12/29/19 20:45 12/29/19 20:52 Isovue-300 (61%) IV 100 ml . DIRECTED TOMAS Administration Ondansetron HCl 4 mg 12/29/19 19:44 12/29/19 19:56 Zofran IVPUSH 12/29/19 19:45 4 mg ONETIME ONE Administration Pantoprazole Sodium 40 mg 12/29/19 22:43 12/29/19 22:58 Protonix PO 12/29/19 22:44 40 mg NOW STA Administration Sodium Chloride 10 ml 12/29/19 19:42 12/29/19 20:51 Saline Flush FLUSH 10 ml ASDIRECTED PRN Administration Keep Vein Open - Re-Assessments/Exams Free Text/Narrative Re-Assessment/Exam: 12/29/19 22:42 Ct findings show distended bladder. Patient denies any pain to bladder. Dr. Sánchez notified of patient assessment, lab work and CT results. Amy can take protonix, tums and follow up with EGD Wednesday01/02/[address] Sánchez. Departure - Departure Time of Disposition: 22:44 Disposition: Home, Self-Care 01 Condition: Good Clinical Impression: Gastroenteritis, Acid reflux - Discharge Information *PRESCRIPTION DRUG MONITORING PROGRAM REVIEWED*: No *COPY OF PRESCRIPTION DRUG MONITORING REPORT IN PATIENT RICK: No Instructions: Abdominal Pain, Adult, [id number] Referrals: Moises Brooks MD [Primary Care Provider] - Forms: ED Department Discharge Additional Instructions: Stay hydrated by drinking plenty of water. Take protonix 40mg by mouth daily. Take tums as needed for pain per manufacture instructions. Follow up with Dr. Sánchez on Wednesday on 01/02/2020 for EGD. Return for worsening, issues or concerns. Sepsis Event Note - Evaluation Sepsis Screening Result: Possible Sepsis Risk - Focused Exam Vital Signs: Vital Signs Temp Pulse Resp BP Pulse Ox 12/29/19 21:30 91 138/88 96 12/29/19 20:37 102 H 16 141/97 H 97 12/29/19 20:15 99 16 141/97 H 97 12/29/19 19:16 36.9 C 113 H 22 H 145/103 H 99 Date Exam was Performed: 12/29/19 Time Exam was Performed: 23:34 - My Orders Last 24 Hours: My Active Orders 12/29/19 19:42 Saline Lock Insert [OM.PC] Routine - Assessment/Plan Last 24 Hours: My Active Orders 12/29/19 19:42 Saline Lock Insert [OM.PC] Routine Assessment:: Abdominal pain Gastritis GERD Plan: Stay hydrated by drinking plenty of water. Take protonix 40mg by mouth daily. Take tums as needed for pain per manufacture instructions. Follow up with Dr. Sánchez on Wednesday on 01/02/2020 for EGD. Return for worsening, issues or concerns.
[2019-12-29] MEDS ORDERED: Sodium Chloride 0.9% 1,000 ML IV SCH (20:00)
[2019-12-29] MEDS: Sodium Chloride 0.9% 10 ML Syringe FLUSH PRN ×2 (20:02→20:51)
[2019-12-29] MEDS ORDERED: Sodium Chloride 0.9% 80 ML IV SCH (20:45)
[2019-12-29] MEDS ORDERED: Iopamidol 612 MG/ML 100 ML Bottle IV SCH (20:45)
--- NOTE | 2019-12-29 21:12 | CRLCT ---
INDICATION: Abdominal pain, history gastric bypass TECHNIQUE: CT Abdomen and pelvis with i.v. contrast. Coronal and sagittal reformats were obtained. CONTRAST: 100 mL Isovue 300 COMPARISON: 11/06/2019 FINDINGS: Lower chest: Unremarkable. Liver: A punctate liver cyst is seen in the liver dome. Spleen: Unremarkable. Pancreas: Unremarkable. Gallbladder: Previous cholecystectomy noted with mild intra and moderate extrahepatic biliary ductal dilatation seen. The common bile duct measures 13 mm. The appearance is similar to prior exam. Kidney: Unremarkable. No kidney or ureteral stones or obstruction seen. Adrenal: Unremarkable. Bowel: Mild nonspecific gaseous distention of the transverse colon. Previous antegastric-antecolic gastric bypass noted with no definite obstruction of the biliopancreatic limb or Gilson-en-Y loop seen. There is a patulous [id number] small bowel anastomosis present in the anterior midabdomen without interval change. The appendix is normal in appearance and size. Vascular: Unremarkable. Lymph: Unremarkable. Peritoneum: Unremarkable. No pneumoperitoneum is seen. No significant ascites is noted. Pelvis: Severe bladder distention is noted. Soft tissue: Unremarkable. Bone: Unremarkable for age. IMPRESSION: 1. Severe bladder distention is noted. Correlation with history and physical exam is recommended to exclude bladder outlet obstruction. Dictated by Gonzalez Hill MD @ 12/29/2019 9:11:36 PM Please note that all CT scans at this facility use dose modulation, iterative reconstruction, and/or weight-based dosing when appropriate to reduce radiation dose to as low as reasonably achievable. Dictated by: Gonzalez Hill MD @ 12/29/2019 21:11:45 (Electronically Signed)
[2019-12-29] MEDS ORDERED: Pantoprazole 40 MG Tab.CR PO STA (22:43)
== END 2019-12-29 23:09 | disposition home or self-care (01) ==
LOC: JP.ED 18:37
DX: K52.9 Noninfective gastroenteritis and colitis, unspecified (principal); K21.9 Gastro-esophageal reflux disease without esophagitis; Z88.0 Allergy status to penicillin; Z88.8 Allergy status to other drugs, medicaments and biological substances; Z91.018 Allergy to other foods; F41.9 Anxiety disorder, unspecified; F32.9 Major depressive disorder, single episode, unspecified; E66.9 Obesity, unspecified; Z68.29 Body mass index [BMI] 29.0-29.9, adult
CPT/HCPCS: 36415; 74177; 80053; 85025; 86140; 96361; 96374; 96375; 96376; 99284; A9270; J1170; J2405; J7030; J7050; Q9967; 99283

== ENCOUNTER 2020-01-02 07:45 | Day surgery (SDC) | payer MEDICAID ==
[2020-01-02] MEDS ORDERED: Glycopyrrolate 0.2 MG/ML 2 ML SDV IVPUSH ONE (08:43)
[2020-01-02] MEDS ORDERED: Dextrose 5%-Lactated Ringers 1,000 ML IV SCH (08:45)
--- NOTE | 2020-01-10 17:59 | OR ---
DATE OF PROCEDURE: 01/02/2020 SURGEON: Joseph Sánchez MD PREOPERATIVE DIAGNOSIS: Epigastric pain. POSTOPERATIVE DIAGNOSIS: Epigastric pain with normal examination, status post Gilson-en-Y gastric bypass. OPERATIVE PROCEDURE: Upper gastrointestinal endoscopy. ANESTHESIA: IV sedation. INDICATION FOR PROCEDURE: A 39-year-old status post a Gilson-en-Y gastric bypass and subsequent revision to create an extremely small pouch. She presented to the emergency room on 12/29/2019, and was initiated on Protonix. She has not taken much of this as of yet. The plan is to proceed with upper GI endoscopy with biopsies and/or dilation as indicated. Potential risks of the procedure including bleeding and perforation were discussed, and the patient wishes to proceed. DETAILS OF PROCEDURE: The patient was taken to the operating room and placed in a left lateral decubitus position. IV sedation was administered, after which the upper GI endoscope was passed orally through the length of the esophagus, through the area of the minimal gastric pouch and through the gastrojejunostomy, and from there 20 cm into the Gilson limb. Findings included essentially a normal examination. The patient had a very tiny rim of gastric mucosa at the gastric pouch, which was intentionally created this way so as to make her gastric acid exposure in that area virtually nil. There was no significant inflammation or stricturing at any point along the exam. Scope was then withdrawn, and the above findings reconfirmed. We will have the patient initiate Protonix use as possible if she is having some inflammation in the bypassed stomach. Follow up will be with Tomasa Cadena at [facility] in roughly 1 month for bariatric followup. Joseph Sánchez MD /[id number]
== END 2020-01-02 10:46 | disposition home or self-care (01) ==
LOC: JP.SDS 07:45
PROVIDERS: ATTEND Surgery
DX: R10.13 Epigastric pain (principal); F17.210 Nicotine dependence, cigarettes, uncomplicated; Z98.84 Bariatric surgery status; Z93.4 Other artificial openings of gastrointestinal tract status; Z88.0 Allergy status to penicillin; Z88.8 Allergy status to other drugs, medicaments and biological substances
CPT/HCPCS: 43235; J7121

== ENCOUNTER 2020-04-23 10:43 | Emergency (ER) | payer MEDICAID, OTHER ==
--- NOTE | 2020-04-23 13:18 | EDM.PDOC ---
<Pam Hazel M - Last Filed: 04/23/20 14:22> ED HPI GENERAL MEDICAL PROBLEM - General Chief Complaint: Abdominal Pain Stated Complaint: UPPER ABD PAIN Time Seen by Provider: 04/23/20 11:06 Source of Information: Reports: Patient, Old Records, RN, RN Notes Reviewed History Limitations: Reports: No Limitations - History of Present Illness INITIAL COMMENTS - FREE TEXT/NARRATIVE: Patient here via private vehicle to ER with continuing/chronic epigastric pain, abd pain, and n/v. Pt indicates this has been ongoing for 15+ years. Per chart records, pt has had several abd surgical procedures, resections of colon/small bowel, and hernia repair. The pain is 8-9/10 epigastric and high abd. Does worsen with food or liquids. Pt had 2 bouts of emesis that was "foam and water" over the last week. Denies fever, chills, cough, or night sweats. Bowels are regular. No symptoms. PCP at [place] has given pt hydrocodone 10/325 but does not entirely relieve the pain. Pt indicates uses Zofran prn at home. Recent history of EGD and CT. Onset: Gradual Duration: Chronic, Getting Worse, Waxing/Waning Location: Reports: Abdomen Quality: Reports: Stabbing Severity: Severe Improves with: Reports: Other (Not eating and some relief with pain medication) Worsens with: Reports: Eating, Movement Associated Symptoms: Reports: Nausea/Vomiting Lower Abdomen Pain Score (Numeric/FACES): 8 - Related Data Allergies Allergy/AdvReac Type Severity Reaction Status Date / Time Penicillins Allergy Hives Verified 04/23/20 12:26 propoxyphene AdvReac Cannot Verified 04/23/20 12:26 [From Luis] Remember [facility] Allergy Severe infection Uncoded 04/23/20 12:26 Home Meds: Home Meds Venlafaxine HCl [Venlafaxine ER] 225 mg PO DAILY 08/13/17 [History] Cyanocobalamin (Vitamin B-12) [Vitamin B-12] 1,000 mcg SL DAILY 08/16/17 [History] Vitamin B Complex [B Complex] 1 each PO DAILY 08/16/17 [History] ALPRAZolam [Xanax] 2 mg PO BEDTIME 11/06/19 [History] Hydrocodone/Acetaminophen [Hydrocodon-Acetaminophen 5-300] 1 each PO Q4HR PRN 12/29/19 [History] Acetaminophen [Tylenol] 650 mg PO Q4H PRN 01/02/20 [History] Multivitamin [Gummi Bear Multivitamin] 1 each PO DAILY 01/02/20 [History] Pantoprazole Sodium [Protonix] 40 mg PO DAILY 01/02/20 [History] Past Medical History HEENT History: Reports: Impaired Vision, Other (See Below) Other HEENT History: "10% hearing left ear" Respiratory History: Reports: Pneumonia, Recurrent Gastrointestinal History: Reports: Bowel Obstruction, Cholelithiasis Genitourinary History: Reports: UTI, Recurrent 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 Neurological History: Reports: Seizure Other Neuro History: patient reports "seizure" recently and did not go to the hospital or get follow up. Psychiatric History: Reports: Anxiety, Depression Endocrine/Metabolic History: Reports: Obesity/BMI 30+ Hematologic History: Reports: B12 Deficiency, Blood Transfusion(s) Other Dermatologic History: draining wound abd - Infectious Disease History Infectious Disease History: Reports: Chicken Pox - Past Surgical History HEENT Surgical History: Reports: Myringotomy w Tube(s), Oral Surgery, Other (See Below) Other HEENT Surgeries/Procedures: skin grafting with ear drum repair GI Surgical History: Reports: Bariatric Procedure, Cholecystectomy, Colon, EGD, Hernia Repair/Other, Lysis of Adhesions, Small Bowel Female Surgical History: Reports: Hysterectomy, Tubal Ligation, Other (See Below) Other Female Surgeries/Procedures: "partial hysterectomy" Musculoskeletal Surgical History: Reports: None Social & Family History - Family History Family Medical History: Noncontributory - Tobacco Use Smoking Status *Q: Never Smoker Second Hand Smoke Exposure: Yes - Caffeine Use Caffeine Use: Reports: Soda Other Caffeine Use: diet coke - Recreational Drug Use Recreational Drug Use: Yes Drug Use in Last 12 Months: Yes Recreational Drug Type: Reports: Marijuana/Hashish Other Recreational Drug Type: did have eatible in [place] ED ROS GENERAL - Review of Systems Review Of Systems: See Below Constitutional: Reports: Decreased Appetite HEENT: Reports: No Symptoms Respiratory: Reports: No Symptoms Cardiovascular: Reports: No Symptoms Endocrine: Reports: No Symptoms GI/Abdominal: Reports: Abdominal Pain, Decreased Appetite, Nausea : Reports: No Symptoms Musculoskeletal: Reports: No Symptoms Skin: Reports: No Symptoms Neurological: Reports: No Symptoms Psychiatric: Reports: No Symptoms Hematologic/Lymphatic: Reports: No Symptoms Immunologic: Reports: No Symptoms ED EXAM, GI/ABD - Physical Exam Exam: See Below Exam Limited By: No Limitations General Appearance: Alert, WD/WN, Mild Distress Head: Normocephalic Neck: Normal Inspection Respiratory/Chest: No Respiratory Distress, Lungs Clear, Normal Breath Sounds, No Accessory Muscle Use, Chest Non-Tender Cardiovascular: Regular Rate, Rhythm, No Edema GI/Abdominal Exam: Normal Bowel Sounds, Guarding, Tender (Female) Exam: Deferred Rectal (Female) Exam: Deferred Neurological: Alert, Oriented, CN II-XII Intact Psychiatric: Normal Affect Skin Exam: Intact Course - Vital Signs Text/Narrative:: Examine pt Will order labs and IVF Labs back are WNL. Dr Officer spoke with Dr Luis Alfredo Sánchez. Departure - Departure Time of Disposition: 14:22 Disposition: Home, Self-Care 01 Condition: Good Clinical Impression: Gastritis Qualifiers: Gastritis type: unspecified gastritis Chronicity: chronic Gastritis bleeding: without bleeding Qualified Code(s): K29.50 - Unspecified chronic gastritis without bleeding - Discharge Information Instructions: Gastritis, Adult, [id number] Referrals: PCP,None [Primary Care Provider] - Forms: ED Department Discharge Additional Instructions: Please advance to STEP 2 Diet Increase your Protonix to twice daily See Dr Bharat alvarez next week Take the pain medication as prescribed. Should your condition worsen,please call 911 immediately or seek medical care as soon as possible Sepsis Event Note (ED) - Evaluation Sepsis Screening Result: No Definite Risk - Problem List & Annotations (1) Gastritis SNOMED Code(s): 3422959 Code(s): K29.70 - GASTRITIS, UNSPECIFIED, WITHOUT BLEEDING Status: Acute Priority: High Current Visit: Yes Qualifiers: Gastritis type: unspecified gastritis Chronicity: chronic Gastritis bleeding: without bleeding Qualified Code(s): K29.50 - Unspecified chronic gastritis without bleeding - Problem List Review Problem List Initiated/Reviewed/Updated: Yes - Assessment/Plan Plan: Please advance to STEP 2 Diet Increase your Protonix to twice daily See Dr Bharat alvarez next week Take the pain medication as prescribed. Should your condition worsen,please call 911 immediately or seek medical care as soon as possible <OfficerMarkell - Last Filed: 04/23/20 14:28> ED ROS GENERAL - Review of Systems Review Of Systems: See Below (Agree with below) ED EXAM, GI/ABD - Physical Exam Text/Narrative:: Agree with below Course - Vital Signs Last Recorded V/S: Last Vital Signs Temp 97.7 F 04/23/20 12:35 Pulse 110 H 04/23/20 12:35 Resp 16 04/23/20 12:35 BP 149/98 H 04/23/20 12:35 Pulse Ox 97 04/23/20 12:35 - Orders/Labs/Meds Orders: Active Orders 24 hr Category Date Time Status Peripheral IV Care [RC] . DIRECTED Care 04/23/20 13:24 Active Sodium Chloride 0.9% [Saline Flush] Med 04/23/20 13:24 Active 10 ml FLUSH ASDIRECTED PRN Peripheral IV Insertion Adult [OM.PC] Routine Oth 04/23/20 13:24 Ordered Medication Orders Sodium Chloride (Saline Flush) 10 ml FLUSH ASDIRECTED PRN PRN Reason: Keep Vein Open Labs: Laboratory Tests 04/23/20 04/23/20 04/23/20 Range/Units 12:28 13:25 13:26 WBC 6.0 (4.5-11.0) K/uL RBC 3.97 (3.30-5.50) M/uL Hgb 12.1 (12.0-15.0) g/dL Hct 39.0 (36.0-48.0) % MCV 98 (80-98) fL MCH 31 (27-31) pg MCHC 31 L (32-36) % Plt Count 322 (150-400) K/uL Neut % (Auto) 49 (36-66) % Lymph % (Auto) 42 (24-44) % [place] % (Auto) 7 H (2-6) % Eos % (Auto) 3 (2-4) % Baso % (Auto) 1 (0-1) % Sodium (140-148) mmol/L Potassium (3.6-5.2) mmol/L Chloride (100-108) mmol/L Carbon Dioxide (21-32) mmol/L Anion Gap (5.0-14.0) mmol/L BUN (7-18) mg/dL Creatinine (0.6-1.0) mg/dL Est Cr Clr Drug Dosing mL/min Estimated GFR (MDRD) (>60) Glucose (74-106) mg/dL Calcium (8.5-10.1) mg/dL Total Bilirubin (0.2-1.0) mg/dL AST (15-37) U/L ALT (12-78) U/L Alkaline Phosphatase (46-116) U/L Total Protein (6.4-8.2) g/dL Albumin (3.4-5.0) g/dL Globulin (2.3-3.5) g/dL Albumin/Globulin Ratio (1.2-2.2) Lipase (73-393) U/L Urine Color Yellow (YELLOW) Urine Appearance Clear (CLEAR) Urine pH 7.0 (5.0-8.0) Ur Specific [place] 1.015 (1.008-1.030) Urine Protein Negative (NEGATIVE) mg/dL Urine Glucose (UA) Negative (NEGATIVE) mg/dL Urine Ketones Negative (NEGATIVE) mg/dL Urine Occult Blood Trace-intact H (NEGATIVE) Urine Nitrite Negative (NEGATIVE) Urine Bilirubin Negative (NEGATIVE) Urine Urobilinogen 0.2 (0.2-1.0) EU/dL Ur Leukocyte Esterase Negative (NEGATIVE) Urine RBC 0-5 (0-5) Urine WBC Not seen (0-5) Ur Epithelial Cells Rare Amorphous Sediment Not seen Urine Bacteria Not seen Urine Mucus Not seen Urine HCG, Qual Negative 04/23/20 Range/Units 13:47 WBC (4.5-11.0) K/uL RBC (3.30-5.50) M/uL Hgb (12.0-15.0) g/dL Hct (36.0-48.0) % MCV (80-98) fL MCH (27-31) pg MCHC (32-36) % Plt Count (150-400) K/uL Neut % (Auto) (36-66) % Lymph % (Auto) (24-44) % [place] % (Auto) (2-6) % Eos % (Auto) (2-4) % Baso % (Auto) (0-1) % Sodium 141 (140-148) mmol/L Potassium 3.9 (3.6-5.2) mmol/L Chloride 105 (100-108) mmol/L Carbon Dioxide 28 (21-32) mmol/L Anion Gap 7.9 (5.0-14.0) mmol/L BUN 8 (7-18) mg/dL Creatinine 0.7 (0.6-1.0) mg/dL Est Cr Clr Drug Dosing 82.23 mL/min Estimated GFR (MDRD) > 60 (>60) Glucose 79 (74-106) mg/dL Calcium 8.4 L (8.5-10.1) mg/dL Total Bilirubin 0.2 D (0.2-1.0) mg/dL AST 25 (15-37) U/L ALT 37 (12-78) U/L Alkaline Phosphatase 75 (46-116) U/L Total Protein 6.4 (6.4-8.2) g/dL Albumin 3.4 (3.4-5.0) g/dL Globulin 3.0 (2.3-3.5) g/dL Albumin/Globulin Ratio 1.1 L (1.2-2.2) Lipase 78 (73-393) U/L Urine Color (YELLOW) Urine Appearance (CLEAR) Urine pH (5.0-8.0) Ur Specific [place] (1.008-1.030) Urine Protein (NEGATIVE) mg/dL Urine Glucose (UA) (NEGATIVE) mg/dL Urine Ketones (NEGATIVE) mg/dL Urine Occult Blood (NEGATIVE) Urine Nitrite (NEGATIVE) Urine Bilirubin (NEGATIVE) Urine Urobilinogen (0.2-1.0) EU/dL Ur Leukocyte Esterase (NEGATIVE) Urine RBC (0-5) Urine WBC (0-5) Ur Epithelial Cells Amorphous Sediment Urine Bacteria Urine Mucus Urine HCG, Qual Meds: Medications Generic Name Dose Route Start Last Admin Trade Name Freq PRN Reason Stop Dose Admin Sodium Chloride 10 ml 04/23/20 13:24 Saline Flush FLUSH ASDIRECTED PRN Keep Vein Open Discontinued Medications Generic Name Dose Route Start Last Admin Trade Name Freq PRN Reason Stop Dose Admin Fentanyl 50 mcg 04/23/20 13:24 04/23/20 13:45 Sublimaze IVPUSH 04/23/20 13:25 50 mcg ONETIME ONE Administration Sodium Chloride 1,000 mls @ 999 mls/hr 04/23/20 13:23 04/23/20 13:40 Normal Saline IV 04/23/20 14:23 999 mls/hr .BOLUS ONE Administration Metoclopramide HCl 5 mg 04/23/20 13:27 04/23/20 13:46 Reglan IVPUSH 04/23/20 13:28 5 mg ONETIME ONE Administration Sepsis Event Note (ED) - Focused Exam Vital Signs: Vital Signs Temp Pulse Resp BP Pulse Ox 04/23/20 12:35 97.7 F 110 H 16 149/98 H 97 04/23/20 11:10 97.7 F 110 H 16 149/98 H 97 - Assessment/Plan Plan: Assessment Acuity = acute Site and laterality = epigastric abdominal pain complicated patient known history of gastric bypass surgery Etiology = unknown Manifestations = none Location of injury = Home Lab values = CBC, CMP, urinalysis unremarkable Plan See plan above, hydrocodone 5/325 1 tab p.o. 3 times daily PRN total #10 Markell Massey MD was personally available for consultation in the ED. I have reviewed the chart and agree with the documentation as recorded by the LIBRARY ASSISTANT Student, including the assessment, treatment plan and disposition. Markell Massey MD personally saw and examined the patient. I have reviewed and agree with the LIBRARY ASSISTANT Student's findings. This note was dictated using Ampli[employer]ense voice recognition software please call with any questions on syntax or grammar.
[2020-04-23] MEDS ORDERED: Sodium Chloride 0.9% 1,000 ML IV ONE (13:23)
[2020-04-23] MEDS ORDERED: Sodium Chloride 0.9% 10 ML Syringe FLUSH PRN (13:24)
[2020-04-23] MEDS ORDERED: fentaNYL 100 MCG/2 ML SDV IVPUSH ONE (13:24)
[2020-04-23] MEDS ORDERED: Metoclopramide 10 MG/2 ML SDV IVPUSH ONE (13:27)
== END 2020-04-23 15:09 | disposition home or self-care (01) ==
LOC: JP.ED 10:43
DX: K29.50 Unspecified chronic gastritis without bleeding (principal); E66.9 Obesity, unspecified; F41.9 Anxiety disorder, unspecified; F32.9 Major depressive disorder, single episode, unspecified; Z98.51 Tubal ligation status; Z77.22 Contact with and (suspected) exposure to environmental tobacco smoke (acute) (chronic); Z90.710 Acquired absence of both cervix and uterus; Z88.0 Allergy status to penicillin; Z91.09 Other allergy status, other than to drugs and biological substances; Z79.899 Other long term (current) drug therapy; Z90.49 Acquired absence of other specified parts of digestive tract; Z68.31 Body mass index [BMI] 31.0-31.9, adult
CPT/HCPCS: 36415; 80053; 81001; 81025; 83690; 85025; 96361; 96374; 96375; 99284; J2765; J3010; J7040

== ENCOUNTER 2021-01-19 12:52 | Emergency (ER) | payer MEDICAID ==
[2021-01-19] MEDS ORDERED: HYDROmorphone 0.5 MG/0.5 ML Syringe IVPUSH ONE (15:43)
[2021-01-19] MEDS ORDERED: Lactated Ringers 1,000 ML IV SCH (15:45)
[2021-01-19] MEDS ORDERED: HYDROmorphone 0.5 MG/0.5 ML Syringe ONE (15:46)
[2021-01-19] MEDS ORDERED: Alum Hydrox/Mag Hydrox/Simeth 15 ML, Lidocaine 2% 15 ML PO ONE ×2 (16:24)
[2021-01-19] MEDS ORDERED: Lidocaine 2% Viscous Solution 15 ML Cup ONE (16:26)
[2021-01-19] MEDS ORDERED: Magnesium Hydroxide 400 MG/5 ML Susp 30 ML Cup ONE (16:27)
[2021-01-19] MEDS ORDERED: Simethicone 80 MG Tab.Chew PO ONE (16:46)
--- NOTE | 2021-01-19 16:47 | EDM.PDOC ---
ED HPI GENERAL MEDICAL PROBLEM - General Chief Complaint: Abdominal Pain Stated Complaint: SEVERE ABD PAIN/GASTRIC BYPASS PATIENT Time Seen by Provider: 01/19/21 15:35 Source of Information: Reports: Patient, Old Records History Limitations: Reports: No Limitations - History of Present Illness INITIAL COMMENTS - FREE TEXT/NARRATIVE: 40 yo female here with acute on chronic epigastric pain. Has a PHx of gastric bypass. Has seen her primary who referred her to the [facility] after [place] declined to see her. The [facility] has not gotten back to her yet. She reports about a 15# weight loss since the onset. Can drink, but has a hard time eating. Feels an epigastric bulge after eating and sometimes, mariaelena recently, vomits after eating. Her stools are loose. Went once to the local ER where she lives and didn't get satisfaction. Onset: Gradual Duration: Week(s):, Getting Worse Location: Reports: Abdomen Quality: Reports: Ache Severity: Moderate Improves with: Denies: Eating (not eating) Worsens with: Reports: Eating Context: Reports: Other (See HPI) Associated Symptoms: Reports: Nausea/Vomiting. 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 below) (none) - Related Data Allergies Allergy/AdvReac Type Severity Reaction Status Date / Time hydromorphone [From Dilaudid] Allergy Nausea Verified 01/19/21 15:58 Penicillins Allergy Hives Verified 01/19/21 15:07 propoxyphene AdvReac Cannot Verified 01/19/21 15:07 [From Darvocet-N] Remember [facility] Allergy Severe infection Uncoded 01/19/21 15:07 Home Meds: Home Meds Venlafaxine HCl [Venlafaxine ER] 225 mg PO DAILY 08/13/17 [History] Cyanocobalamin (Vitamin B-12) [Vitamin B-12] 1,000 mcg SL DAILY 08/16/17 [History] Vitamin B Complex [B Complex] 1 each PO DAILY 08/16/17 [History] ALPRAZolam [Xanax] 2 mg PO BEDTIME 11/06/19 [History] Hydrocodone/Acetaminophen [Hydrocodon-Acetaminophen 5-300] 1 each PO Q4HR PRN 12/29/19 [History] Acetaminophen [Tylenol] 650 mg PO Q4H PRN 01/02/20 [History] Multivitamin [Gummi Bear Multivitamin] 1 each PO DAILY 01/02/20 [History] Past Medical History HEENT History: Reports: Impaired Vision, Other (See Below) Other HEENT History: "10% hearing left ear" Respiratory History: Reports: Pneumonia, Recurrent Gastrointestinal History: Reports: Bowel Obstruction, Cholelithiasis Genitourinary History: Reports: UTI, Recurrent 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 Neurological History: Reports: Seizure Other Neuro History: patient reports "seizure" recently and did not go to the hospital or get follow up. Psychiatric History: Reports: Anxiety, Depression Endocrine/Metabolic History: Reports: Obesity/BMI 30+ Hematologic History: Reports: B12 Deficiency, Blood Transfusion(s) Other Dermatologic History: hx of draining wound abd - Infectious Disease History Infectious Disease History: Reports: Chicken Pox - Past Surgical History Head Surgeries/Procedures: Reports: None HEENT Surgical History: Reports: Myringotomy w Tube(s), Oral Surgery, Other (See Below) Other HEENT Surgeries/Procedures: skin grafting with ear drum repair Respiratory Surgical History: Reports: None GI Surgical History: Reports: Bariatric Procedure, Cholecystectomy, Colon, EGD, Hernia Repair/Other, Lysis of Adhesions, Small Bowel Female Surgical History: Reports: Hysterectomy, Tubal Ligation, Other (See Below) Other Female Surgeries/Procedures: "partial hysterectomy" Endocrine Surgical History: Reports: None Neurological Surgical History: Reports: None Musculoskeletal Surgical History: Reports: None Dermatological Surgical History: Reports: None Social & Family History - Family History Family Medical History: No Pertinent Family History - Tobacco Use Tobacco Use Status *Q: Never Tobacco User Second Hand Smoke Exposure: No - Caffeine Use Caffeine Use: Reports: Soda Other Caffeine Use: diet coke - Recreational Drug Use Recreational Drug Use: Yes Drug Use in Last 12 Months: Yes Recreational Drug Type: Reports: Marijuana/Hashish Recreational Drug Use Frequency: Rarely ED ROS GENERAL - Review of Systems Review Of Systems: See Below Constitutional: Reports: No Symptoms, Weight Loss. Denies: Weight Gain HEENT: Reports: No Symptoms Respiratory: Reports: No Symptoms Cardiovascular: Reports: No Symptoms GI/Abdominal: Reports: Abdominal Pain, Diarrhea, Distension (feels an epigastric bulge especially after eating), Nausea (at times, mariaelena after eating), Vomiting (after eating). Denies: Black Stool, Bloody Stool, Constipation, Hematemesis, Hematochezia, Melena Musculoskeletal: Reports: No Symptoms Skin: Reports: No Symptoms Neurological: Reports: No Symptoms Psychiatric: Reports: No Symptoms ED EXAM, GI/ABD - Physical Exam Exam: See Below Exam Limited By: No Limitations General Appearance: Alert, WD/WN, No Apparent Distress Eyes: Bilateral: Normal Appearance Ears: Normal External Exam, Normal Canal, Hearing Grossly Normal, Normal TMs Nose: Normal Inspection, No Blood Throat/Mouth: Normal Inspection, Normal Lips, Normal Oropharynx, Normal Voice, No Airway Compromise Head: Atraumatic, Normocephalic Neck: Normal Inspection Respiratory/Chest: No Respiratory Distress, Lungs Clear, Normal Breath Sounds, Chest Non-Tender Cardiovascular: Regular Rate, Rhythm, No Edema GI/Abdominal Exam: Normal Bowel Sounds, Soft, Non-Tender, No Distention Back Exam: Normal Inspection. No: CVA Tenderness (R), CVA Tenderness (L) Extremities: Normal Inspection, Normal Range of Motion, Non-Tender, No Pedal Edema Neurological: Alert, Oriented, CN II-XII Intact, Normal Cognition, No Motor/Sensory Deficits Psychiatric: Normal Affect, Normal Mood Skin Exam: Warm, Dry, Intact, Normal Color, No Rash Course - Vital Signs Last Recorded V/S: Last Vital Signs Temp 36.6 C 01/19/21 15:06 Pulse 92 01/19/21 15:10 Resp 17 01/19/21 15:06 BP 173/113 H 01/19/21 15:10 Pulse Ox 98 01/19/21 15:10 - Orders/Labs/Meds Orders: Active Orders 24 hr Category Date Time Status Abdomen 2V AP Flat Upright [CR] Stat Exams 01/19/21 15:44 Ordered HCG QUALITATIVE,URINE [URCHEM] Routine Lab 01/19/21 15:45 Ordered UA W/MICROSCOPIC [URIN] Routine Lab 01/19/21 15:45 Ordered Lactated Ringers [Ringers, Lactated] 1,000 ml Med 01/19/21 15:45 Active IV ASDIRECTED Medication Orders Lactated Ringer's (Ringers, Lactated) 1,000 mls @ 500 mls/hr IV ASDIRECTED TOMAS Labs: Laboratory Tests 01/19/21 01/19/21 Range/Units 15:50 15:50 WBC 7.4 (4.5-11.0) K/uL RBC 3.84 (3.30-5.50) M/uL Hgb 12.4 (12.0-15.0) g/dL Hct 38.4 (36.0-48.0) % MCV 100 H (80-98) fL MCH 32 H (27-31) pg MCHC 32 (32-36) % Plt Count 337 (150-400) K/uL Sodium 142 (140-148) mmol/L Potassium 3.8 (3.6-5.2) mmol/L Chloride 105 (100-108) mmol/L Carbon Dioxide 26 (21-32) mmol/L Anion Gap 10.8 (5.0-14.0) mmol/L BUN 9 (7-18) mg/dL Creatinine 0.8 (0.6-1.0) mg/dL Est Cr Clr Drug Dosing TNP Estimated GFR (MDRD) > 60 (>60) Glucose 83 (74-106) mg/dL Calcium 8.4 L (8.5-10.1) mg/dL Total Bilirubin 0.3 (0.2-1.0) mg/dL AST 20 (15-37) U/L ALT 30 (12-78) U/L Alkaline Phosphatase 71 (46-116) U/L Total Protein 6.4 (6.4-8.2) g/dL Albumin 3.2 L (3.4-5.0) g/dL Globulin 3.2 (2.3-3.5) g/dL Albumin/Globulin Ratio 1.0 L (1.2-2.2) Lipase 120 (73-393) U/L Meds: Medications Generic Name Dose Route Start Last Admin Trade Name Freq PRN Reason Stop Dose Admin Lactated Ringer's 1,000 mls @ 500 mls/hr 01/19/21 15:45 Ringers, Lactated IV ASDIRECTED TOMAS Discontinued Medications Generic Name Dose Route Start Last Admin Trade Name Freq PRN Reason Stop Dose Admin Al Hydroxide/Mg Hydroxide 15 0 ml 01/19/21 16:24 ml/ Lidocaine HCl 15 ml PO 01/19/21 16:25 ONETIME ONE Hydromorphone HCl Confirm 01/19/21 15:46 Hydromorphone 0.5 Mg/0.5 Ml Syringe Administered 01/19/21 15:47 Dose 0.5 mg .ROUTE .STK-MED ONE Hydromorphone HCl 0.25 mg 01/19/21 15:43 Hydromorphone 0.5 Mg/0.5 Ml Syringe IVPUSH 01/19/21 15:44 ONETIME ONE Lidocaine HCl Confirm 01/19/21 16:26 Lidocaine 2% Viscous Solution 15 Ml Cup Administered 01/19/21 16:27 Dose 15 ml .ROUTE .STK-MED ONE Magnesium Hydroxide Confirm 01/19/21 16:27 Magnesium Hydroxide 400 Mg/5 Ml Susp 30 Ml Cup Administered 01/19/21 16:28 Dose 30 ml .ROUTE .STK-MED ONE Simethicone 160 mg 01/19/21 16:46 Simethicone 80 Mg Tab.Chew PO 01/19/21 16:47 ONETIME ONE Simethicone Confirm 01/19/21 16:50 Simethicone 80 Mg Tab.Chew Administered 01/19/21 16:51 Dose 160 mg .ROUTE .STK-MED ONE - Radiology Interpretation Free Text/Narrative:: Flat/upright abdominal [id number] gas, no sign of obstruction. - Re-Assessments/Exams Free Text/Narrative Re-Assessment/Exam: 01/19/21 16:36 GI cocktail took away her pain. Departure - Departure Time of Disposition: 17:05 Disposition: Home, Self-Care 01 Condition: Fair Clinical Impression: Gastritis Qualifiers: Gastritis type: unspecified gastritis Chronicity: chronic Gastritis bleeding: without bleeding Qualified Code(s): K29.50 - Unspecified chronic gastritis without bleeding - Discharge Information *PRESCRIPTION DRUG MONITORING PROGRAM REVIEWED*: Not Applicable *COPY OF PRESCRIPTION DRUG MONITORING REPORT IN PATIENT RICK: Not Applicable Instructions: Gastritis, Adult, [id number] Referrals: Moises Brooks MD [Primary Care Provider] - Forms: ED Department Discharge Additional Instructions: Take famotidine 40 mg at bedtime. Take Carafate 30 min before meals and at bedtime. Use simethicone as needed per package instructions for gas pain/distention. Acetaminophen may be used for pain relief. Avoid carbonated beverages, tobacco, alcohol, or ibuprofen/Aleve. Call Dr. Sánchez's office tomorrow to schedule a follow up appt. Sepsis Event Note (ED) - Evaluation Sepsis Screening Result: No Definite Risk - Focused Exam Vital Signs: Vital Signs Temp Pulse Resp BP Pulse Ox 01/19/21 15:10 92 173/113 H 98 01/19/21 15:06 36.6 C 91 17 166/111 H 97 01/19/21 15:04 36.6 C 91 17 166/111 H 97 - My Orders Last 24 Hours: My Active Orders 01/19/21 15:44 Abdomen 2V AP Flat Upright [CR] Stat 01/19/21 15:45 HCG QUALITATIVE,URINE [URCHEM] Routine UA W/MICROSCOPIC [URIN] Routine Lactated Ringers [Ringers, Lactated] 1,000 ml IV ASDIRECTED - Assessment/Plan Last 24 Hours: My Active Orders 01/19/21 15:44 Abdomen 2V AP Flat Upright [CR] Stat 01/19/21 15:45 HCG QUALITATIVE,URINE [URCHEM] Routine UA W/MICROSCOPIC [URIN] Routine Lactated Ringers [Ringers, Lactated] 1,000 ml IV ASDIRECTED
[2021-01-19] MEDS ORDERED: Simethicone 80 MG Tab.Chew ONE (16:50)
--- NOTE | 2021-01-20 12:25 | CR ---
Abdomen 2V AP Flat Upright CLINICAL HISTORY: Abdominal pain, difficulty eating, history of bariatric surgery FINDINGS: There are scattered air-filled loops of small bowel in a nonspecific pattern. There is gas and feces throughout the colon. No free air is seen. There is mildly dilated viscus in the mid abdomen. This is also seen on the CT from 2019 and appears to be: IMPRESSION: Nonspecific intestinal gas pattern Previous bariatric surgery
== END 2021-01-19 17:17 | disposition home or self-care (01) ==
LOC: JP.ED 12:52
DX: K29.50 Unspecified chronic gastritis without bleeding (principal); E66.9 Obesity, unspecified; Z68.30 Body mass index [BMI] 30.0-30.9, adult; Z88.0 Allergy status to penicillin; Z88.5 Allergy status to narcotic agent; Z91.09 Other allergy status, other than to drugs and biological substances
CPT/HCPCS: 36415; 74019; 80053; 81001; 81025; 83690; 85027; 96374; 99283; 99284; A9270; J1170; J7120

== ENCOUNTER 2021-01-30 05:12 | Day surgery (SDC) | payer MEDICAID ==
[2021-01-30] MEDS ORDERED: Lactated Ringers 1,000 ML IV SCH (06:00)
[2021-01-30] MEDS ORDERED: Cyanocobalamin (Vitamin B12) 1,000 MCG/ML SDV IM ONE (06:30)
[2021-01-30] MEDS ORDERED: MVI, Adult with Vitamin K 10 ML, Thiamine 200 MG, Zinc/Copper/Manganese/Selenium 1 ML i... IV ONE ×4 (07:00)
[2021-01-30] MEDS ORDERED: Glycopyrrolate 0.2 MG/ML 2 ML SDV IVPUSH ONE (07:15)
[2021-01-30] MEDS ORDERED: fentaNYL 100 MCG/2 ML SDV ONE (07:18)
[2021-01-30] MEDS ORDERED: Midazolam 1 MG/ML 2 ML SDV ONE (07:18)
[2021-01-30] MEDS ORDERED: Propofol 200 MG/20 ML SDV ONE (07:18)
[2021-01-30] MEDS ORDERED: Acetaminophen/HYDROcodone 325-5 MG Tab PO ONE (08:30)
[2021-02-01 12:12] LABS: H. PYLORI BREATH TEST Negative (Negative)
--- NOTE | 2021-02-03 07:11 | OR ---
DATE OF PROCEDURE: 01/30/2021 SURGEON: Joseph Sánchez MD PREOPERATIVE DIAGNOSIS: Postprandial abdominal pain status post Gilson-en-Y gastric bypass. POSTOPERATIVE DIAGNOSIS: Normal upper GI endoscopic examination status post Gilson-en-Y gastric bypass. OPERATIVE PROCEDURE: Upper gastrointestinal endoscopy. ANESTHESIA: IV sedation. INDICATION FOR PROCEDURE: A 40-year-old status post Gilson-en-Y gastric bypass presenting with some postprandial abdominal pain along with some dysphagia referable to the mid and distal esophagus. She was just started on Protonix on Wednesday, i.e. around 4 days ago. The plan is to proceed with upper GI endoscopy with biopsies and/or dilation as indicated. Potential risks including bleeding and perforation were discussed and the patient wishes to proceed. DETAILS OF PROCEDURE: The patient was taken to the operating room and placed in a left lateral decubitus position. IV sedation was administered after which the upper GI endoscope was passed orally through the length of the esophagus, into the gastric pouch, from there roughly 20 cm into the Gilson limb. Overall, the examination was entirely normal. There were no areas of stricturing or mucosal inflammation. The scope was then withdrawn, the above findings reconfirmed, and the procedure then concluded. At this point, we will have her continue the Protonix in the event that these symptoms may be related to inflammation and the bypassed stomach. On the other hand, the patient's symptoms are suggestive of possible partial small-bowel obstruction. We will continue the Protonix and have followup with Tomasa Cadena in roughly 3 weeks. If the symptoms persist in terms of the postprandial abdominal pain, exploratory laparotomy would be necessary to evaluate for the partial small-bowel obstruction. Otherwise, we will do an H. pylori breath test in the [facility] prior to discharge. Joseph Sánchez MD /[id number]
== END 2021-01-30 09:00 | disposition home or self-care (01) ==
LOC: JP.SDS 05:12
PROVIDERS: ATTEND Surgery
DX: R10.13 Epigastric pain (principal); F17.200 Nicotine dependence, unspecified, uncomplicated; Z88.0 Allergy status to penicillin; Z88.8 Allergy status to other drugs, medicaments and biological substances; Z98.84 Bariatric surgery status
CPT/HCPCS: 83013; A9270-GY; J2250; J2704; J3010; J3411; J3420; J3490; J7120